=== PATIENT | female | born 1940 | race Caucasian/White ===

== ENCOUNTER 2017-11-06 10:41 | Emergency (ER) | payer MEDICARE, OTHER ==
--- NOTE | 2017-11-06 11:13 | ERPHSYRPT ---
- History of Present Illness Time Seen by Provider: 11/06/17 10:55 Source: patient Exam Limitations: clinical condition Patient Subjective Stated Complaint: pt reports pain and blisters to right thigh and groin-states that pain radiaties up into her hip at times-reports worsenign of s/s throughout the week Triage Nursing Assessment: pt [id number] appearing to be healing noted in a downward line to right thigh-resp easy and nonlabored Physician History: PATIENT WITH A HISTORY OF CHRONIC LOW BACK PAIN, SCIATICA COMPLAINS OF 2 BLISTERS OVER THE RIGHT MID THIGH OUTER ASPECT FOR THE PAST WEEK, HAS ASSOCIATED RIGHT HIP PAIN. DENIES FALL, INJURY OR TRAUMA, OR PAIN UPON WEIGHT BEARING. Method of Injury: other (DENIES INJURY OR TRAUMA.) Occurred: last week Quality: stabbing Severity of Pain-Max: moderate Severity of Pain-Current: moderate Lower Extremities Pain: hip: right, thigh: right Modifying Factors: Improves With: nothing Associated Symptoms: other (RIGHT HIP PAIN) Allergies/Adverse Reactions: No Known Drug Allergies Allergy (Verified 11/06/17 10:55) Home Medications: Bupropion HCl [Wellbutrin] 150 mg PO DAILY 04/18/12 [History] Levothyroxine Sodium [Synthroid] 112 mcg PO DAILY 04/18/12 [History] Zolpidem Tartrate 10 mg [Ambien 10 MG] 10 mg PO HS 04/18/12 [History] Hydrocodone Bit/Acetaminophen [Vicodin 5-500 Tablet] 1 each PO Q4H PRN PRN 04/22 [History] Hx Tetanus, Diphtheria Vaccination/Date Given: Yes Hx Influenza Vaccination/Date Given: Yes Hx Pneumococcal Vaccination/Date Given: No Immunizations Up to Date: Yes - Past Medical History Pertinent Past Medical History: Yes Neurological History: No Pertinent History ENT History: No Pertinent History Cardiac History: Hypertension Respiratory History: Bronchitis, Other Endocrine Medical History: No Pertinent History Musculoskeletal History: No Pertinent History GI Medical History: No Pertinent History, GERD History: No Pertinent History Psycho-Social History: Anxiety Female Reproductive Disorders: No Pertinent History Other Medical History: nodules on lungs - Past Surgical History Past Surgical History: Yes Neuro Surgical History: No Pertinent History Respiratory: No Pertinent History Gastrointestinal: Cholecystectomy Genitourinary: No Pertinent History Musculoskeletal: No Pertinent History Female Surgical History: No Pertinent History Other Surgical History: breast biopsy. arm. WHIPPLES PROCEDURE. APPENDETOMY - Social History Smoking Status: Never smoker Exposure to second hand smoke: No Drug Use: none Patient Lives Alone: No - Female History Hx Now: No - Nursing Vital Signs Nursing Vital Signs: Initial Vital Signs Temperature 97.4 F 11/06/17 10:47 Pulse Rate 91 H 11/06/17 10:47 Respiratory Rate 18 11/06/17 10:47 Blood Pressure 167/99 11/06/17 10:47 O2 Sat by Pulse Oximetry 96 11/06/17 10:47 Pain Scale Pain Intensity 0 - Physical Exam General Appearance: alert Eyes, Ears, Nose, Throat Exam: moist mucous membranes Neck Exam: non-tender, supple Cardiovascular/Respiratory Exam: chest non-tender, normal breath sounds, regular rate/rhythm, no respiratory distress Gastrointestinal/Abdominal Exam: non-tender, guarding Back Exam: normal inspection, decreased range of motion, muscle spasm, point tenderness (THERE IS PARASPINAL TENDERNESS L-2 TO L-5), No vertebral tenderness Hips Exam: right: non-tender, normal inspection, pain (THERE IS FULL RANGE OF MOTION WITH FLEXION, EXTENSION AND INTERNAL/EXTERNAL ROTATION) Legs Exam: right leg: no evidence of injury, soft tissue tenderness (MID RIGHT THIGH TO GROIN, THERE ARE 1MM X 3 HEALING VESICLES OVER MID THIGH LATERAL ASPECT.), other (THERE IS NO CALF OR LEUNG PAIN OR SWELLING) DTR - Lower Extremities Exam: knee (R): 2+, knee (L): 2+, ankle (R): 2+ Neuro/Tendon Exam: normal sensation, normal motor functions Mental Status Exam: alert, oriented x 3, cooperative Skin Exam: normal color, warm, dry SpO2: 96 Oxygen Delivery: Room Air - Radiology Exams Right Hip X-ray Interpretation: Interpreted by me (NO EVIDENCE OF FRACTURE OR DISLOCATION) - Radiology Ultrasound Exam Right Venous Lower Extremity Ultrasound: discussed w/radiologist (NO EVIDENCE OF DVT) Ordered Tests: Active Orders 24 hr Category Date Time Status HIP UNI (2V) INCL PEL IF DONE Stat Exams 11/06/17 12:05 Taken VENOUS UNILAT/LIMITED EXTREMIT [US] Stat Exams 11/06/17 Ordered - Departure Time of Disposition: 13:00 Departure Disposition: Home Clinical Impression: SPINAL STENOSIS WITH SCIATICA Condition: Stable Critical Care Time: No Referrals: GAETANO,MARY T. [Primary Care Provider] - Additional Instructions: CONTINUE ALL CURRENT MEDICATIONS. CONSULT YOUR PRIMARY CARE PROVIDER FOR FOLLOWUP AND PLHYSICAL THERAPY. TORADOL 10MG EVERY 4 HOURS FOR PAIN NEEDED. Prescriptions: Ketorolac Tromethamine [Toradol] 10 mg PO Q6H PRN PRN #20 tablet PRN Reason: Pain
[2017-11-06 13:11] VITALS: BP 149/94; PULSE 89; O2SAT 98
--- NOTE | 2017-11-06 20:14 | XRAY ---
Indication: Right hip/sciatic pain. No known injury. Impression: No AP pelvis and 2 views of the right hip demonstrate multiple bilateral gluteal calcified injection granulomas and lumbosacral junction degenerative facet arthropathy. No other bony, articular, or soft tissue abnormalities.
--- NOTE | 2017-11-06 20:16 | XRAY ---
Indication: Right thigh pain 3 days. Two-dimensional sonogram and color Doppler imaging of the major venous vessels of the right leg was performed. Comparison: None No thrombus seen in the examined deep venous vessels of the right leg including greater saphenous vein. Veins demonstrate normal compressibility. Venous waveforms are normal with and without augmentation. Impression: Right leg negative for DVT. Comment: Preliminary report was given.
== END 2017-11-06 13:10 | disposition home or self-care (01) ==
LOC: ED 10:41
DX: M54.41 Lumbago with sciatica, right side (principal); M48.061 Spinal stenosis, lumbar region without neurogenic claudication; M25.551 Pain in right hip; M79.651 Pain in right thigh
CPT/HCPCS: 73502; 93971; 99284

== ENCOUNTER 2018-01-02 17:36 | Observation (INO) | payer MEDICARE, OTHER ==
[2018-01-02] MEDS ORDERED: BABY ASPIRIN 81 MG CHEW PO ONE (18:23)
--- NOTE | 2018-01-02 18:32 | ERPHSYRPT ---
<PREET GENAO - Last Filed: 01/02/18 19:12> - History of Present Illness Time Seen by Provider: 01/02/18 18:27 Exam Limitations: no limitations Patient Subjective Stated Complaint: PT HERE FOR PAIN TO LEFT SIDE OF CHEST TODAY WITH SOB. NO COUGH NO FEVER, STATES PAIN AT REST, SHE WENT DR REN TODAY AND HAD PLACES ON FACE REMOVED Triage Nursing Assessment: PT ALERT, HAS SORES ON FACE FROM PROCEDURE TODAY, RESP EASY, SKIN W/D/P. NO EDEMAN NOTED Physician History: Of intermittent sharp short chest pains that began at 4:00. The pain will last about 10 seconds to less than 1 minute. When the chest pain occurs, she has difficulty in catching her breath. She denies nausea or sweating. She was having intermittent chest pains until she arrived at the ER. Now she has been chest pain-free. Her past medical history is significant for high cholesterol, CHF, GERD, hypothyroidism, and depression. Timing/Duration: hour(s) (2) Activities at Onset: none Quality: sharpness Location: central (left) Chest Pain Radiation: no radiation Severity of Pain-Max: moderate Severity of Pain-Current: none Modifying Factors: Improves With: nothing Associated Symptoms: shortness of breath, No nausea, No vomiting Prior Chest Pain/Cardiac Workup: no prior chest pain Nitro Today/Relief: no nitro taken today Aspirin Treatment Today: no aspirin today Allergies/Adverse Reactions: No Known Drug Allergies Allergy (Verified 01/02/18 17:48) Home Medications: Levothyroxine Sodium [Synthroid] 112 mcg PO DAILY 04/18/12 [History] Zolpidem Tartrate 10 mg [Ambien 10 MG] 10 mg PO HS 04/18/12 [History] Hydrocodone Bit/Acetaminophen [Vicodin 5-500 Tablet] 1 each PO Q4H PRN PRN 04/22 [History] Duloxetine HCl 30 mg [Cymbalta 30 MG Capsule] 30 mg DAILY 01/02/18 [ History] Omeprazole 20 MG [Prilosec 20 mg] 20 mg DAILY 01/02/18 [History] Pravastatin Sodium 10 mg DAILY 01/02/18 [History] Hx Tetanus, Diphtheria Vaccination/Date Given: Yes Hx Influenza Vaccination/Date Given: Yes Hx Pneumococcal Vaccination/Date Given: Yes Immunizations Up to Date: Yes - Review of Systems Constitutional: No Fever, No Chills Eyes: No Symptoms Ears, Nose, & Throat: No Symptoms Respiratory: Dyspnea Cardiac: Chest Pain Abdominal/Gastrointestinal: No Abdominal Pain, No Nausea, No Vomiting, No Diarrhea Genitourinary Symptoms: No Dysuria Musculoskeletal: No Back Pain, No Neck Pain Skin: No Rash Neurological: No Dizziness, No Focal Weakness, No Sensory Changes Psychological: No Symptoms Endocrine: No Symptoms Hematologic/Lymphatic: No Symptoms Immunological/Allergic: No Symptoms All Other Systems: Reviewed and Negative - Past Medical History Pertinent Past Medical History: Yes Neurological History: No Pertinent History ENT History: No Pertinent History Cardiac History: Hypertension Respiratory History: Bronchitis, CHF, Other Endocrine Medical History: No Pertinent History Musculoskeletal History: No Pertinent History GI Medical History: No Pertinent History, GERD History: No Pertinent History Psycho-Social History: Anxiety Female Reproductive Disorders: No Pertinent History Other Medical History: nodules on lungs - Past Surgical History Past Surgical History: Yes Neuro Surgical History: No Pertinent History Respiratory: No Pertinent History Gastrointestinal: Cholecystectomy Genitourinary: No Pertinent History Musculoskeletal: No Pertinent History Female Surgical History: No Pertinent History Other Surgical History: breast biopsy. arm. WHIPPLES PROCEDURE. APPENDETOMY - Social History Smoking Status: Never smoker Exposure to second hand smoke: Yes Drug Use: none Patient Lives Alone: No - Female History Hx Last Menstrual Period: POST Hx Now: No - Nursing Vital Signs Nursing Vital Signs: Initial Vital Signs Temperature 97.5 F 01/02/18 17:39 Pulse Rate 96 H 01/02/18 17:39 Respiratory Rate 18 01/02/18 17:39 Blood Pressure 173/102 01/02/18 17:39 O2 Sat by Pulse Oximetry 97 01/02/18 17:39 Pain Scale Pain Intensity 4 - Physical Exam General Appearance: no apparent distress, alert Eye Exam: PERRL/EOMI, eyes nml inspection Ears, Nose, Throat Exam: normal ENT inspection, moist mucous membranes Neck Exam: normal inspection, non-tender, supple, full range of motion Respiratory Exam: normal breath sounds, lungs clear, No respiratory distress Cardiovascular Exam: regular rate/rhythm, normal heart sounds Gastrointestinal/Abdomen Exam: soft, No tenderness, No mass Pelvic Exam: not done Rectal Exam: not done Back Exam: normal inspection, No CVA tenderness, No vertebral tenderness Extremity Exam: normal inspection, normal range of motion Neurologic Exam: alert, oriented x 3, cooperative, normal mood/affect, sensation nml, No motor deficits Skin Exam: normal color, warm, dry SpO2 Interpretation: normal SpO2: 97 Oxygen Delivery: Room Air - Course EKG Interpreted by Me: RATE, Sinus Rhythm, Left Flatgap Deviation, NORMAL INTERVALS , Left Bundle Branch Block, NORMAL ST-T - Radiology Exams Chest X-ray Interpretation: Reviewed by me, Negative (no change compared to CXR .) Ordered Tests: Active Orders 24 hr Category Date Time Status Parts Delivery Driver STAT Care 01/02/18 18:24 Active EKG-ER Only STAT Care 01/02/18 18:23 Active IV Insertion STAT Care 01/02/18 18:23 Active Pulse Oximetry (ED) STAT Care 01/02/18 18:23 Active CHEST 2 VIEWS (PA AND LAT) Stat Exams 01/02/18 18:23 Taken CBC W DIFF Stat Lab 01/02/18 18:30 Completed CMP Stat Lab 01/02/18 18:30 Completed D-DIMER QUANTITATION Stat Lab 01/02/18 18:30 Completed NT PRO BNP Stat Lab 01/02/18 18:30 Completed TROPONIN Q3H Lab 01/02/18 18:30 Completed TROPONIN Q3H Lab 01/02/18 21:30 Ordered TROPONIN Q3H Lab 01/03/18 00:30 Ordered TROPONIN Q3H Lab 01/03/18 03:30 Ordered TROPONIN Q3H Lab 01/03/18 06:30 Ordered Medication Summary Discontinued Medications Generic Name Dose Route Start Last Admin Trade Name Freq PRN Reason Stop Dose Admin Aspirin 324 mg 01/02/18 18:23 01/02/18 18:37 Baby Aspirin 81 Mg Chew PO 01/02/18 18:24 324 mg STAT ONE Administration Aspirin Confirm 01/02/18 18:33 Baby Aspirin 81 Mg Chew Administered 01/02/18 18:34 Dose 324 mg .ROUTE .[facility] ONE Lab/Rad Data: Laboratory Result Diagrams 01/02/18 18:30 01/02/18 18:30 Laboratory Results 01/02/18 01/02/18 01/02/18 Range/Units 18:30 18:30 18:30 WBC (4.0-10.5) K/mm3 RBC (4.1-5.4) M/mm3 Hgb (12.0-16.0) gm/dl Hct (35-47) % MCV (78-100) fl MCH (26-32) pg MCHC (32-36) g/dl RDW (11.5-14.0) % Plt Count (150-450) K/mm3 MPV (6-9.5) fl Gran % (36.0-66.0) % Eos # (Auto) (0-0.5) Absolute Lymphs (auto) (1.0-4.6) Absolute Monos (auto) (0.0-1.3) Lymphocytes % (24.0-44.0) % Monocytes % (0.0-12.0) % Eosinophils % (0.00-5.0) % Basophils % (0.0-0.4) % Absolute Granulocytes (1.4-6.9) Basophils # (0-0.4) D-Dimer 369.42 (215-500) ng/mL Sodium 141 (137-145) mmol/L Potassium 4.4 (3.5-5.1) mmol/L Chloride 104 (98-107) mmol/L Carbon Dioxide 25 (22-30) mmol/L Anion Gap 16.6 H (5-15) MEQ/L BUN 26 H (7-17) mg/dL Creatinine 0.62 (0.52-1.04) mg/dL Estimated GFR > 60.0 ML/MIN Glucose 99 (74-106) mg/dL Calcium 9.9 (8.4-10.2) mg/dL Total Bilirubin 0.80 (0.2-1.3) mg/dL AST 73 H (14-36) U/L ALT 75 H (0-35) U/L Alkaline Phosphatase 110 (38-126) U/L Troponin I < 0.012 (0.000-0.034) ng/mL NT-Pro-B Natriuret Pep 448 (0-1800) pg/mL Serum Total Protein 8.0 (6.3-8.2) g/dL Albumin 4.6 (3.5-5.0) g/dL 01/02/18 Range/Units 18:30 WBC 6.7 (4.0-10.5) K/mm3 RBC 4.48 (4.1-5.4) M/mm3 Hgb 13.5 (12.0-16.0) gm/dl Hct 41.1 (35-47) % MCV 91.7 (78-100) fl MCH 30.1 (26-32) pg MCHC 32.8 (32-36) g/dl RDW 13.8 (11.5-14.0) % Plt Count 184 (150-450) K/mm3 MPV 10.6 H (6-9.5) fl Gran % 59.4 (36.0-66.0) % Eos # (Auto) 0.20 (0-0.5) Absolute Lymphs (auto) 1.91 (1.0-4.6) Absolute Monos (auto) 0.58 (0.0-1.3) Lymphocytes % 28.6 (24.0-44.0) % Monocytes % 8.7 (0.0-12.0) % Eosinophils % 3.0 (0.00-5.0) % Basophils % 0.3 (0.0-0.4) % Absolute Granulocytes 3.97 (1.4-6.9) Basophils # 0.02 (0-0.4) D-Dimer (215-500) ng/mL Sodium (137-145) mmol/L Potassium (3.5-5.1) mmol/L Chloride (98-107) mmol/L Carbon Dioxide (22-30) mmol/L Anion Gap (5-15) MEQ/L BUN (7-17) mg/dL Creatinine (0.52-1.04) mg/dL Estimated GFR ML/MIN Glucose (74-106) mg/dL Calcium (8.4-10.2) mg/dL Total Bilirubin (0.2-1.3) mg/dL AST (14-36) U/L ALT (0-35) U/L Alkaline Phosphatase (38-126) U/L Troponin I (0.000-0.034) ng/mL NT-Pro-B Natriuret Pep (0-1800) pg/mL Serum Total Protein (6.3-8.2) g/dL Albumin (3.5-5.0) g/dL - Progress Progress Note: 01/02/18 19:13 Discussed pt care and transferred pt to Dr Walter at 19:00. - Departure Clinical Impression: Chest pain Qualifiers: Chest pain type: unspecified Qualified Code(s): R07.9 - Chest pain, unspecified Condition: Good Referrals: MARY SALTER [Primary Care Provider] - <MINE WALTER - Last Filed: 01/02/18 20:34> - Progress Progress: improved Air Movement: good Progress Note: 01/02/18 20:31 I re-examined patient, she states, she feels better, denies severe chest pain, no SOB or distress, comfortable. I called Dr Neves, covering Dr Salter, discussed our results and patient's current condition, he agreed to admit her for observation. I informed patient and her dayghter, they agreed. Discussed with .: Edinson Will see patient in: hospital (observation) Counseled pt/family regarding: lab results, diagnosis, rad results - Departure Time of Disposition: 20:33 Departure Disposition: Observation Critical Care Time: No
[2018-01-02] MEDS ORDERED: BABY ASPIRIN 81 MG CHEW ONE (18:33)
[2018-01-02 18:38] LABS: BASOPHIL % 0.3 % (0.0-0.4); Basophil (Absolute #) 0.02 (0-0.4); Granulocyte Absolute (ANC) 3.97 (1.4-6.9); Granulocytes % 59.4 % (36.0-66.0); Hematocrit 41.1 % (35-47); Hemoglobin 13.5 gm/dl (12.0-16.0); Lymphocyte (Absolute #) 1.91 (1.0-4.6); Lymphocytes % 28.6 % (24.0-44.0); Mean Cell Volume 91.7 fl (78-100); Mean Corpuscular Hemoglobin 30.1 pg (26-32); Mean Corpuscular Hgb Concent. 32.8 g/dl (32-36); Mean Platelet Volume 10.6 fl (6-9.5); Monocyte (Absolute #) 0.58 (0.0-1.3); Monocytes % 8.7 % (0.0-12.0); Platelet Count 184 K/mm3 (150-450); Red Blood Count 4.48 M/mm3 (4.1-5.4); Red Cell Distribution Width 13.8 % (11.5-14.0); White Blood Count 6.7 K/mm3 (4.0-10.5)
[2018-01-02 19:01] LABS: ALBUMIN 4.6 g/dL (3.5-5.0); ALKALINE PHOSPHATASE 110 U/L (38-126); ANION GAP 16.6 MEQ/L (5-15); BLOOD UREA NITROGEN 26 mg/dL (7-17); CHLORIDE 104 mmol/L (98-107); Calcium 9.9 mg/dL (8.4-10.2); Carbon Dioxide 25 mmol/L (22-30); Creatinine 1 0.62 mg/dL (0.52-1.04); Glucose 99 mg/dL (74-106); Potassium 4.4 mmol/L (3.5-5.1); SGOT/AST 73 U/L (14-36); SGPT/ALT 75 U/L (0-35); SODIUM 141 mmol/L (137-145)
[2018-01-02 19:09] LABS: NT PRO BNP 448 pg/mL (0-1800)
[2018-01-02] MEDS ORDERED: Zofran 4 MG/2 ML VIAL IV PRN (20:38)
[2018-01-02] MEDS ORDERED: Senokot-S Tablet PO PRN (20:38)
[2018-01-02] MEDS ORDERED: TYLENOL 325 MG PO PRN (20:38)
[2018-01-02] MEDS ORDERED: MILK OF MAGNESIA 30 ML PO PRN (20:38)
[2018-01-02] MEDS ORDERED: MAALOX ES 30 ML UNIT DOSE PO PRN (20:38)
[2018-01-03] MEDS ORDERED: Cymbalta 30 MG Capsule PO ONE (00:06)
[2018-01-03] MEDS ORDERED: Protonix 40MG Tablet PO ONE (00:09)
[2018-01-03] MEDS ORDERED: Ambien 5 MG Tablet PO ONE (00:10)
[2018-01-03 05:11] LABS: Cholesterol 141 mg/dL (50-200); HDL CHOLESTEROL 27 mg/dL (40-60); Risk Ratio 5.2; TRIGLYCERIDE 146 mg/dL (30-150)
[2018-01-03 05:22] LABS: LDL, DIRECT 78 mg/dL (30-100)
[2018-01-03 05:28] LABS: TROPONIN < 0.012 ng/mL (0.000-0.034)
[2018-01-03 07:25] VITALS: BP 143/78; PULSE 98; O2SAT 97
--- NOTE | 2018-01-03 08:22 | PCM.DCORD ---
- Discharge Discharge Date: 01/03/18 Disposition: Home, Self-Care Condition: Good Prescriptions: Continue Levothyroxine Sodium [Synthroid] 112 mcg PO DAILY Zolpidem Tartrate 10 mg [Ambien 10 MG] 5 mg PO HS Omeprazole 20 MG [Prilosec 20 mg] 20 mg HS Duloxetine HCl 30 mg [Cymbalta 30 MG Capsule] 60 mg HS Pravastatin Sodium 10 mg DAILY Sacubitril/Valsartan [Entresto 49 mg-51 mg Tablet] 1 tab PO HS Additional Instructions: resume previous home medications no changes list above may not be accurate Follow up with: MARY SALTER [Primary Care Provider] - 1 Week
--- NOTE | 2018-01-03 08:22 | PCM.HP ---
History of Present Illness - Chief Complaint Chief Complaint: Chest Pain Date: 01/03/18 History of Present Illness: is a 77 year old female. who yesterday afternoon began experiencing quick sharp pains in the upper left side of the chest that would come on unprovoked for 10 secs or less and were repetative she had no shortness of breath, nausea or diaphoresis with this. She has no new exercise intolerance but does have chronic cough and fibromyalgia. She was brought to the ED by her daughter and placed in observation overnight. She has not had recurrence of the pains. - Review of Systems Constitutional: No Fever, No Chills Eyes: No Symptoms Ears, Nose, & Throat: No Symptoms Respiratory: Cough, No Short Of Breath Cardiac: Chest Pain, No Edema, No Syncope Abdominal/Gastrointestinal: No Abdominal Pain, No Nausea, No Vomiting, No Diarrhea Genitourinary Symptoms: No Dysuria Musculoskeletal: No Back Pain, No Neck Pain Skin: No Rash Neurological: No Dizziness, No Focal Weakness, No Sensory Changes Psychological: No Symptoms Endocrine: No Symptoms Hematologic/Lymphatic: No Symptoms Immunological/Allergic: No Symptoms Medications & Allergies Home Medications: Home Medication List Levothyroxine Sodium [Synthroid] 112 mcg PO DAILY 04/18/12 [History Confirmed ] Zolpidem Tartrate 10 mg [Ambien 10 MG] 5 mg PO HS 04/18/12 [History Confirmed 01/02/18] Duloxetine HCl 30 mg [Cymbalta 30 MG Capsule] 60 mg HS 01/02/18 [History Confirmed 01/02/18] Omeprazole 20 MG [Prilosec 20 mg] 20 mg HS 01/02/18 [History Confirmed 01/02/18] Pravastatin Sodium 10 mg DAILY 01/02/18 [History Confirmed 01/02/18] Sacubitril/Valsartan [Entresto 49 mg-51 mg Tablet] 1 tab PO HS 01/02/18 [ History Confirmed 01/02/18] Allergies/Adverse Reactions: Allergies Allergy/AdvReac Type Severity Reaction Status Date / Time No Known Drug Allergies Allergy Verified 01/02/18 17:48 - Past Medical History Past Medical History: Yes Neurological History: No Pertinent History ENT History: Cataracts Cardiac History: Hypertension Respiratory History: Bronchitis, CHF, Other Endocrine Medical History: No Pertinent History Musculoskelatal History: No Pertinent History GI Medical History: GERD History: No Pertinent History Pyscho-Social History: Anxiety Reproductive Disorders: No Pertinent History Comment: nodules on lungs - Female History Hx Last Menstrual Period: POST Are you now?: No - Past Surgical History Past Surgical History: Yes Neuro Surgical History: No Pertinent History Cardiac History: No Pertinent History Respiratory Surgery: No Pertinent History GI Surgical History: Appendectomy, Cholecystectomy Genitourinary Surgical Hx: No Pertinent History Musculskeletal Surgical Hx: Other Female Surgical History: No Pertinent History Other Surgical History: breast biopsy. radial tunnel surgery on right arm - Social History Smoking Status: Never smoker Exposure to second hand smoke: Yes Alcohol: None Drug Use: none - Physical Exam Vital Signs: Vital Signs - 24 hr Temp Pulse Pulse Resp BP Pulse Ox 01/03/18 07:24 97.5 F 98 H 18 143/78 97 01/03/18 06:00 96 01/03/18 05:01 98.1 F 93 H 14 138/66 94 L 01/03/18 02:24 97.9 F 86 18 129/61 96 01/03/18 02:00 96 01/02/18 23:07 97.9 F 92 H 18 178/79 96 01/02/18 22:44 98 01/02/18 22:24 92 H 18 178/79 96 01/02/18 21:50 87 14 163/80 97 01/02/18 21:40 87 14 163/80 96 01/02/18 20:50 96 H 20 165/88 96 01/02/18 20:02 88 18 165/84 99 01/02/18 19:14 97 01/02/18 19:00 90 20 141/86 96 01/02/18 18:40 97.6 F 100 H 16 151/97 98 01/02/18 17:39 97.5 F 100 H 96 H 18 173/102 97 General Appearance: no apparent distress, alert Neurologic Exam: alert, oriented x 3, cooperative, normal mood/affect, nml cerebellar function, nml station & gait, sensation nml, No motor deficits Eye Exam: PERRL/EOMI, eyes nml inspection Ears, Nose, Throat Exam: normal ENT inspection, TMs normal, pharynx normal, moist mucous membranes Neck Exam: normal inspection, non-tender, supple, full range of motion Respiratory Exam: normal breath sounds, lungs clear, No respiratory distress Cardiovascular Exam: regular rate/rhythm, normal heart sounds, normal peripheral pulses Gastrointestinal/Abdomen Exam: soft, normal bowel sounds, No tenderness, No mass Back Exam: normal inspection, normal range of motion, No CVA tenderness, No vertebral tenderness Extremity Exam: normal inspection, normal range of motion, pelvis stable Skin Exam: normal color, warm, dry, No rash Lymphatic Exam: No adenopathy Results - Labs Lab/Micro Results: Lab Results-Last 24 Hours 01/03/18 01/03/18 Range/Units 01:15 04:45 Troponin I < 0.012 < 0.012 (0.000-0.034) ng/mL Triglycerides 146 (30-150) mg/dL Cholesterol 141 (50-200) mg/dL LDL Cholesterol 78 (30-100) mg/dL HDL Cholesterol 27 L (40-60) mg/dL Heart Disease Risk Ratio 5.2 - Other Procedures and Tests Respiratory Therapy 01/04/18 05:00 EKG ROUTINE 01/05/18 05:00 EKG ROUTINE 01/06/18 05:00 EKG ROUTINE Assessment/Plan (1) Chest pain Status: Acute Qualifiers: Chest pain type: unspecified Qualified Code(s): R07.9 - Chest pain, unspecified Assessment & Plan: she had negative CT for PE negative enzymes and BNP within normal limits her chest pain is atypical and appears consistent with musculoskeletal etiology she will return home on her normal medications and f/u immediately if new or worsening symptoms She will keep the f/u with her mosaic tiler this month. last heart cath was 10/12/[address] Khalida jarvis she will keep appointment this month for f/u with him Code(s): R07.9 - CHEST PAIN, UNSPECIFIED (2) Hypertension Status: Chronic Code(s): I10 - ESSENTIAL (PRIMARY) HYPERTENSION (3) LBBB (left bundle branch block) Status: Chronic Code(s): I44.7 - LEFT BUNDLE-BRANCH BLOCK, UNSPECIFIED (4) Coronary arteriosclerosis Status: Chronic
--- NOTE | 2018-01-03 08:37 | XRAY ---
Indication: Chest pain. Comparison: April 22, 2016. PA/lateral chest remains clear again with scattered calcified granulomas and right hemidiaphragm elevation. Heart and mediastinal structures within normal limits. Bony thorax intact with mild degenerative changes. Impression: Stable nonacute chest with chronic features.
[2018-01-03] MEDS ORDERED: Ecotrin 325 MG PO SCH (10:00)
[2018-01-03] MEDS ORDERED: Zocor 10MG PO SCH (10:00)
[2018-01-03] MEDS ORDERED: SYNTHROID 112 MCG PO SCH (10:00)
[2018-01-03] MEDS ORDERED: Cymbalta 30 MG Capsule PO SCH (22:00)
[2018-01-03] MEDS ORDERED: Ambien 5 MG Tablet PO SCH (22:00)
[2018-01-03] MEDS ORDERED: Protonix 40MG Tablet PO SCH (22:00)
[2018-01-03] MEDS ORDERED: ENTRESTO 49 MG-51 MG TABLET PO SCH (22:00)
== END 2018-01-03 09:10 | disposition home or self-care (01) ==
LOC: ED 17:36 → MED SURG 22:23
PROVIDERS: ADMIT Family Medicine; ATTEND Family Medicine
DX: R07.9 Chest pain, unspecified (principal); R05 Cough; Z79.899 Other long term (current) drug therapy; I10 Essential (primary) hypertension; I44.7 Left bundle-branch block, unspecified; I25.10 Atherosclerotic heart disease of native coronary artery without angina pectoris
CPT/HCPCS: 36000; 36415; 71046; 80053; 80061; 83721; 83880; 84484; 85025; 85379; 93005; 93041; 93268; 94760; 99285; A9270-GY; G0378

== ENCOUNTER 2021-01-10 13:38 | Emergency (ER) | payer MEDICARE, OTHER ==
--- NOTE | 2021-01-10 13:42 | ERPHSYRPT ---
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 She fell suffering injury to her head, left hip, left knee and middle finger of her left hand. Patient did not lose consciousness. She denies chest pain. She denies shortness of breath. She denies abdominal pain. Occurred: just prior to arrival Reason for Fall: lost balance Injuries/Pain Location: head, upper extremity (Left hand index finger), lower extremity (Left hip and left knee) Loss of Consciousness: no loss of consciousness Quality: aching Severity of Pain-Max: moderate Severity of Pain-Current: moderate Modifying Factors: Improves With: movement Associated Symptoms (Fall): extremity injury (Left hand index finger), No abdominal pain, No back pain, No chest pain Allergies/Adverse Reactions: No Known Drug Allergies Allergy (Verified 01/10/21 13:59) Home Medications: Levothyroxine Sodium [Synthroid] 112 mcg PO DAILY 04/18/12 [History] Zolpidem Tartrate 10 mg [Ambien 10 MG] 5 mg PO HS 04/18/12 [History] Duloxetine HCl 30 mg [Cymbalta 30 MG Capsule] 60 mg HS 01/02/18 [History] Omeprazole 20 MG [Prilosec 20 mg] 20 mg HS 01/02/18 [History] Pravastatin Sodium 10 mg DAILY 01/02/18 [History] Sacubitril/Valsartan [Entresto 49 mg-51 mg Tablet] 1 tab PO HS 01/02/18 [History] Carvedilol [Coreg] 25 mg PO DAILY 01/10/21 [History] Isosorbide Mononitrate 60 mg [Imdur 60MG] 60 mg PO DAILY 01/10/21 [History] Montelukast Sodium 10 mg [Singulair 10 MG] 10 mg PO DAILY 01/10/21 [History] Oxybutynin Chloride Xl 5 mg [Ditropan XL 5 MG] 5 mg PO BID 01/10/21 [History] Hx Tetanus, Diphtheria Vaccination/Date Given: Yes Hx Influenza Vaccination/Date Given: Yes Hx Pneumococcal Vaccination/Date Given: Yes Travel Risk - International Travel Have you traveled outside of the country in past 3 weeks: No - Coronavirus Screening Are you exhibiting any of the following symptoms?: No Close contact with a COVID-19 positive Pt in past 14-21 Days: No - Review of Systems Constitutional: No Symptoms Eyes: No Symptoms Ears, Nose, & Throat: No Symptoms Respiratory: No Symptoms Cardiac: No Symptoms Abdominal/Gastrointestinal: No Symptoms Genitourinary Symptoms: No Symptoms Musculoskeletal: Fall, Injury, Joint Pain (Left hip and left knee) Skin: Other (Left index finger distal palmar degloving) Neurological: No Symptoms Psychological: No Symptoms Endocrine: No Symptoms Hematologic/Lymphatic: No Symptoms Immunological/Allergic: No Symptoms All Other Systems: Reviewed and Negative - Past Medical History Pertinent Past Medical History: Yes Neurological History: No Pertinent History ENT History: Cataracts Cardiac History: Arrhythmia, High Cholesterol, Hypertension, Other Respiratory History: COPD Endocrine Medical History: Hypothyroidism Musculoskeletal History: Osteoarthritis, Other GI Medical History: GERD History: No Pertinent History Psycho-Social History: Anxiety Female Reproductive Disorders: No Pertinent History Other Medical History: HX OF ELBOW SURGERY FOR RADIAL TUNNEL RIGHT 1983. PATIENT SCHEDULED FOR PACEMAKER/DEFIBRILLATOR 08/16/19. GERD, ANXIETY, POLYMYALGIA - Past Surgical History Past Surgical History: Yes Neuro Surgical History: No Pertinent History Cardiac: No Pertinent History Respiratory: No Pertinent History Gastrointestinal: Appendectomy, Cholecystectomy Genitourinary: No Pertinent History Musculoskeletal: Other Female Surgical History: No Pertinent History Other Surgical History: breast biopsy. radial tunnel surgery on right arm - Social History Smoking Status: Never smoker Exposure to second hand smoke: Yes Drug Use: none Patient Lives Alone: No - Nursing Vital Signs Nursing Vital Signs: Initial Vital Signs Pulse Rate 64 01/10/21 13:39 O2 Sat by Pulse Oximetry 98 01/10/21 13:39 Pain Scale Pain Intensity 4 - Jos Coma Score Best Eye Response (Jos): (4) open spontaneously Best Verbal Response (Jos): (5) oriented Best Motor Response ([place]): (6) obeys commands [place] Total: 15 - Physical Exam General Appearance: no apparent distress, alert, anxiety Head Injury: no evidence of injury Eye Exam: PERRL/EOMI, eyes nml inspection ENT Exam: airway nml, evidence of ENT injury Neck Exam: supple, trachea midline, full range of motion, normal alignment Respiratory/Chest Exam: normal breath sounds, No chest tenderness, No respiratory distress, No accessory muscle use Cardiovascular Exam: normal heart sounds, regular rate/rhythm Gastrointestinal Exam: soft, normal bowel sounds, No tenderness Rectal Exam: not done Back Exam: normal inspection, normal range of motion, No CVA tenderness, No vertebral tenderness Extremity Exam: normal range of motion, pelvis stable, lacerations (Degloving 1 cm x 1 cm palmar aspect distal left 3rd finger. Neurovascularly intact. Tendon intact. 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, normal mood/affect, nml cerebellar function, nml station & gait, sensation nml Skin Exam: laceration (See above) SpO2 Interpretation: normal O2 Delivery: Room Air Procedures - Laceration/Wound Repair Left Distal Volar Finger Time of Procedure: 14:40 Wound Length (cm): 1 Wound's Depth, Shape: superficial, flap, into subcut Wound Explored: clean Irrigated: Yes Hibiclens Prep: Yes Anesthesia: 1% Lidocaine Volume Anesthetic (ccs): 5 Suture Size/Type: 4-0, prolene Number of Sutures: 5 Layer Closure?: No Sterile Dressing Applied?: Yes Progress: 01/10/21 14:54 The goal of this procedure was to use the patient's own degloved 1 cm x 1 cm in a horseshoe fashion skin as a skin graft. The area was prepped there was a digital block performed with 1% lidocaine plain. 5 mL were used in total. 5 simple interrupted sutures of 4-0 Prolene were used to tack the skin graft to the finger tip. The area was then cleaned, bacitracin ointment was applied, Vaseline gauze was applied as well as nonstick gauze. Pressure dressing was then applied. We are awaiting x-ray of the hand. - Course Nursing assessment & vital signs reviewed: Yes Ordered Tests: Active Orders 24 hr Category Date Time Status IV Insertion STAT Care 01/10/21 13:55 Active Wound Care STAT Care 01/10/21 13:56 Active CERVICAL SPINE WO CONTRAST [CT] Stat Exams 01/10/21 13:50 Taken ELBOW (MINIMUM 3 VIEWS) Routine Exams 01/10/21 16:15 Taken HAND (MINIMUM 3 VIEWS) Stat Exams 01/10/21 13:49 Taken HEAD WITHOUT CONTRAST [CT] Stat Exams 01/10/21 13:50 Taken HIPS JERMAIN(2V) INCL PEL IF DONE Stat Exams 01/10/21 13:49 Taken KNEE (1 OR 2 VIEW) Stat Exams 01/10/21 13:55 Taken Medication Summary Discontinued Medications Generic Name Dose Route Start Last Admin Trade Name Sally PRN Reason Stop Dose Admin Cefazolin Sodium/Dextrose 1 gm in 50 mls @ 100 mls/hr 01/10/21 13:56 01/10/21 16:17 Kefzol 1 Gm/50 Ml Premix IV 01/10/21 14:25 100 mls/hr STAT ONE Administration Cefazolin Sodium/Dextrose Confirm 01/10/21 15:41 Kefzol 1 Gm/50 Ml Premix Administered 01/10/21 15:42 Dose 1 gm in 50 mls @ ud IV .STK-MED ONE Lidocaine HCl Confirm 01/10/21 14:11 Xylocaine 1% Hcl 20 Ml Mdv Administered 01/10/21 14:12 Dose 1 ml .ROUTE .STK-MED ONE Morphine Sulfate 4 mg 01/10/21 13:57 01/10/21 14:11 Morphine Sulfate 4 Mg Inj IV 01/10/21 13:58 4 mg STAT ONE Administration Morphine Sulfate Confirm 01/10/21 14:09 Morphine Sulfate 4 Mg Inj Administered 01/10/21 14:10 Dose 4 mg .ROUTE .STK-MED ONE Ondansetron HCl 4 mg 01/10/21 13:57 01/10/21 14:11 Zofran 4 Mg/2 Ml Vial IV 01/10/21 13:58 4 mg STAT ONE Administration Ondansetron HCl Confirm 01/10/21 14:09 Zofran 4 Mg/2 Ml Vial Administered 01/10/21 14:10 Dose 4 mg .ROUTE .STK-MED ONE - Progress Progress: improved, pain not gone completely, re-examined Progress Note: 01/10/21 14:57 Medical decision making: With regard to the patient's degloved skin of left 3rd digit, distal aspect, palmar aspect, I contacted Dr. Frederick Swartz. He is a hand surgeon out of [facility]. With the patient's permission I took pictures of the site of injury. Dr. Swartz reviewed them and the plan was to tack the patient's own skin graft to the site. Patient was made aware that this may not take. No other surgical recommendation at this time. The patient is to follow- up in his office 01/13/2020, at 1 PM. Again, the patient is aware that this skin graft may not take in additional surgical procedure may need to be performed. 01/10/21 16:35 01/10/21 16:39 X-ray of left hand shows complete fracture of the tip of the distal phalanx third digit. Left knee x-ray shows no acute fracture or dislocation X-ray of bilateral hip shows no evidence of any acute fracture or dislocation. 01/10/21 17:04 Rate of the left elbow shows no acute fracture or dislocation 01/10/21 17:22 CAT scan of the cervical spine without contrast shows no acute fracture or subluxation. CAT scan of the head without contrast shows no acute intracranial abnormality or injury. Counseled pt/family regarding: diagnosis, need for follow-up, rad results - Departure Departure Disposition: Home Clinical Impression: Fall with injury, Degloving injury of finger Condition: Stable Critical Care Time: No Referrals: MONIKA SINGLETON NP [Primary Care Provider] - Additional Instructions: Take your medication as prescribed. Stop all your blood thinning medication including aspirin and Eliquis. Follow-up with Dr. Frederick Swartz in his office [address] The phone number is [phone]. He will see you in his office at 1 PM on Tuesday01/12/2021 Prescriptions: Hydrocodone/APAP 5/325 [[place] 5/325 mg] 1 each PO Q8H PRN PRN #7 tablet MDD 3 PRN Reason: Pain Cephalexin Mh 500 mg [Keflex 500 mg] 500 mg PO TID #21 capsule
[2021-01-10] MEDS ORDERED: KEFZOL 1 GM/50 ML PREMIX** 1 GM/50 ML IVPB IV ONE ×2 (13:56→15:41)
[2021-01-10] MEDS ORDERED: MORPHINE SULFATE 4 MG INJ IV ONE (13:57)
[2021-01-10] MEDS ORDERED: Zofran 4 MG/2 ML VIAL IV ONE (13:57)
[2021-01-10 13:59] VITALS: O2SAT 98
[2021-01-10] MEDS ORDERED: Zofran 4 MG/2 ML VIAL ONE (14:09)
[2021-01-10] MEDS ORDERED: MORPHINE SULFATE 4 MG INJ ONE (14:09)
[2021-01-10] MEDS ORDERED: XYLOCAINE 1% HCL 20 ML MDV ONE (14:11)
[2021-01-10 17:09] VITALS: BP 101/61; PULSE 62
[2021-01-10] MEDS ORDERED: NORCO 5/325 MG PO ONE (17:26)
[2021-01-10] MEDS ORDERED: NORCO 5/325 MG ONE (17:33)
--- NOTE | 2021-01-10 20:01 | XRAY ---
Indication: Injury following fall. Multiple contiguous axial images obtained through the head without contrast. Comparison: None Age-appropriate global atrophy and minimal periventricular degenerative micro-ischemia bilaterally. No acute intracranial hemorrhage, abnormal extra-axial fluid collection, or mass effect. Fourth ventricle is midline without hydrocephalus. Bony calvarium intact. Visualized paranasal sinuses and mastoid air cells are clear. Impression: Nonacute senile brain. Comment: Preliminary interpretation was made by [facility]. No critical discrepancy.
--- NOTE | 2021-01-10 20:09 | XRAY ---
Indication: Injury following fall. Multiple contiguous axial images obtained through the cervical spine. Sagittal and coronal reformatted images obtained. Comparison: None Axial images negative for acute fracture, suspicious bony lesions, or spinal canal stenosis. Mild C6-C7 degenerative endplate spurring and moderate multilevel bilateral degenerative facet hypertrophy. Sagittal and coronal reformatted images demonstrates lordotic reversal, positional versus paraspinal spasm. C6-C7 disc space loss. No acute compression fracture, subluxation, or jumped facet. Normal appearing craniocervical junction. Visualized noncontrasted soft tissues demonstrates mild heterogeneously enlarged right thyroid gland. Lung apices demonstrates a few calcified granulomas. Impression: 1. Cervical lordotic reversal, positional versus paraspinal spasm. 2. Negative acute fracture/subluxation. 2. Multilevel degenerative changes. Comment: Preliminary interpretation was made by [facility]. No critical discrepancy.
--- NOTE | 2021-01-10 20:34 | XRAY ---
Indication: Pain following fall. Comparison: None 3 view left elbow demonstrates osteopenia. No other bony, articular, or soft tissue abnormalities.
--- NOTE | 2021-01-10 20:36 | XRAY ---
Indication: Pain following fall. Comparison: None 2 view left knee demonstrates osteopenia small posterior fabella. No other bony, articular, or soft tissue abnormalities.
--- NOTE | 2021-01-10 20:38 | XRAY ---
Indication: Pain following fall. Comparison: None AP pelvis and 2 view left and right hip demonstrates osteopenia, lower lumbar degenerative spondylosis, and multiple bilateral gluteal calcified injection granulomas. No other bony, articular, or soft tissue abnormalities.
--- NOTE | 2021-01-10 20:38 | XRAY ---
Indication: Pain following fall. Comparison: None 3 view left hand demonstrates displaced 3rd phalanx tuft fracture with overlying bandage material. Incidental osteopenia and mild degenerative changes base 1st metacarpal. No other bony, articular, or soft tissue abnormalities.
== END 2021-01-10 17:40 | disposition home or self-care (01) ==
LOC: ED 13:38
DX: S61.213A Laceration without foreign body of left middle finger without damage to nail, initial encounter (principal); W01.119A Fall on same level from slipping, tripping and stumbling with subsequent striking against unspecified sharp object, initial encounter; Y93.01 Activity, walking, marching and hiking; Y92.094 Garage of other non-institutional residence as the place of occurrence of the external cause; S09.90XA Unspecified injury of head, initial encounter; Z79.01 Long term (current) use of anticoagulants; S79.912A Unspecified injury of left hip, initial encounter; S89.92XA Unspecified injury of left lower leg, initial encounter; I10 Essential (primary) hypertension; J44.9 Chronic obstructive pulmonary disease, unspecified; E03.9 Hypothyroidism, unspecified
CPT/HCPCS: 70450; 72125; 73080; 73130; 73521; 73560; 96365; 96374; 96375; 99284; J0690; J2270; J2405; A9270-GY

== ENCOUNTER 2021-07-26 13:32 | Inpatient (IN) | payer MEDICARE, OTHER ==
[2021-07-26 14:18] LABS: Absolute Neutrophil Ct (ANC) 3.86 (1.4-6.9); BASOPHIL % 0.5 % (0.0-0.4); Basophil (Absolute #) 0.03 (0-0.4); Eosinophil (Absolute #) 0.23 (0-0.5); Hematocrit 39.1 % (35-47); Hemoglobin 12.3 gm/dl (12.0-16.0); Lymphocyte (Absolute #) 1.16 (1.0-4.6); Mean Cell Volume 91.4 fl (78-100); Mean Corpuscular Hemoglobin 28.7 pg (26-32); Mean Corpuscular Hgb Concent. 31.5 g/dl (32-36); Mean Platelet Volume 10.2 fl (7.5-11.0); Monocyte (Absolute #) 0.51 (0.0-1.3); Monocytes % 8.8 % (0.0-12.0); Neutrophil % 66.7 % (36.0-66.0); Platelet Count 152 K/mm3 (150-450); Red Blood Count 4.28 M/mm3 (4.1-5.4); Red Cell Distribution Width 15.5 % (11.5-14.0); White Blood Count 5.8 K/mm3 (4.0-10.5)
[2021-07-26 14:22] LABS: INR 1.72 (0.8-3.0); PROTIME 20.3 SECONDS (9.4-12.5)
[2021-07-26 14:25] LABS: PTT 36.7 SECONDS (25.1-36.5)
[2021-07-26 14:29] LABS: ALKALINE PHOSPHATASE 106 U/L (38-126); ANION GAP 12.6 MEQ/L (5-15); BLOOD UREA NITROGEN 13 mg/dL (7-17); CHLORIDE 103 mmol/L (98-107); Carbon Dioxide 25 mmol/L (22-30); EST GLOMERULAR FILTRATION RATE > 60.0 ML/MIN; Glucose 134 mg/dL (74-106); Potassium 3.7 mmol/L (3.5-5.1); SGOT/AST 77 U/L (14-36); SGPT/ALT 52 U/L (0-35); SODIUM 137 mmol/L (137-145); Total Protein 6.9 g/dL (6.3-8.2)
[2021-07-26] MEDS ORDERED: DUONEB 0.5-3 MG/3 ml Neb IH ONE (14:59)
--- NOTE | 2021-07-26 15:03 | ERPHSYRPT ---
- History of Present Illness Time Seen by Provider: 07/26/21 13:34 Source: patient Exam Limitations: no limitations Patient Subjective Stated Complaint: weakness Triage Nursing Assessment: Patient brought back to ED via w/c and transferred to bed per self. Patient A+O X 3. Patient's skin pale, cool and dry. Patient complains of weakness, cough, SOB, and fatigue for one week. Patient's lungs clear a/p sue. Physician History: 81 years old female with history of congestive heart failure status post AICD implant presented in the ER with chief complaint of multiple flulike symptoms. Patient reports nasal/sinus congestion, wet to dry cough, chest soreness, wheezing, subjective feeling of fever chills, headache, body aches along with generalized weakness fatigue and tiredness. She has been using [id number] medication with no significant relief. Is vaccinated against COVID-19. Does have positive exposure to sick contact with her daughter who had similar symptoms. Denies any abdominal pain nausea vomiting or diarrhea. Timing/Duration: week(s) (1), gradual onset, worse Cough Quality/Degree: moderate, dry cough, productive cough Possible Cause: illness exposure Modifying Factors: Worsens With: coughing Associated Symptoms: fever, chills, chest pain/soreness, cough, headache, muscle aches, nasal congestion, shortness of breath, sinus infection Allergies/Adverse Reactions: No Known Drug Allergies Allergy (Verified 01/10/21 13:59) Home Medications: Levothyroxine Sodium [Synthroid] 112 mcg PO DAILY 04/18/12 [History] Zolpidem Tartrate 10 mg [Ambien 10 MG] 5 mg PO HS 04/18/12 [History] Duloxetine HCl 30 mg [Cymbalta 30 MG Capsule] 60 mg PO DAILY 01/02/18 [History] Omeprazole 20 MG [Prilosec 20 mg] 20 mg HS 01/02/18 [History] Pravastatin Sodium 20 mg DAILY 01/02/18 [History] Carvedilol [Coreg] 25 mg PO BID 01/10/21 [History] Isosorbide Mononitrate 60 mg [Imdur 60MG] 60 mg PO DAILY 01/10/21 [History] Montelukast Sodium 10 mg [Singulair 10 MG] 10 mg PO HS 01/10/21 [History] Oxybutynin Chloride Xl 5 mg [Ditropan XL 5 MG] 5 mg PO BID 01/10/21 [History] Apixaban [Eliquis] 5 mg PO BID 07/26/21 [History] Budesonide/Formoterol Fumarate [Budesonide-Formoterol 160-4.5] 2 puff IH BID 07/26/21 [History] Sacubitril/Valsartan [Entresto 97 mg-103 mg Tablet] 1 tab PO BID 07/26/21 [History] Hx Tetanus, Diphtheria Vaccination/Date Given: Yes Hx Influenza Vaccination/Date Given: Yes Hx Pneumococcal Vaccination/Date Given: Yes Immunizations Up to Date: Yes Travel Risk - International Travel Have you traveled outside of the country in past 3 weeks: No - Coronavirus Screening Symptoms: Cough: New Onset, Shortness of Breath, Headaches/Body Aches/Fatigue Close contact with a COVID-19 positive Pt in past 14-21 Days: No - Vaccine Status Have you recieved a Covid-19 vaccination: Yes 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 - Vaccination Dates Date of 2cond Vaccination (if applicable): 11/23 - Review of Systems Constitutional: Fever, Chills, Fatigue, Weakness Eyes: No Symptoms Ears, Nose, & Throat: Nose Congestion Respiratory: Cough, Dyspnea, Wheezing Cardiac: No Symptoms Abdominal/Gastrointestinal: No Symptoms Genitourinary Symptoms: No Symptoms Musculoskeletal: Myalgias Skin: No Symptoms Neurological: Headache Psychological: No Symptoms Endocrine: No Symptoms Hematologic/Lymphatic: No Symptoms Immunological/Allergic: No Symptoms - Past Medical History Pertinent Past Medical History: Yes Neurological History: No Pertinent History ENT History: Cataracts Cardiac History: Arrhythmia, High Cholesterol, Hypertension, Other Respiratory History: COPD Endocrine Medical History: Hypothyroidism Musculoskeletal History: Osteoarthritis, Other GI Medical History: GERD History: No Pertinent History Psycho-Social History: Anxiety Female Reproductive Disorders: No Pertinent History Other Medical History: HX OF ELBOW SURGERY FOR RADIAL TUNNEL RIGHT 1983. PATIENT SCHEDULED FOR PACEMAKER/DEFIBRILLATOR 08/16/19. GERD, ANXIETY, POLYMYALGIA - Past Surgical History Past Surgical History: Yes Neuro Surgical History: No Pertinent History Cardiac: No Pertinent History, Internal Defibrillator, Pacemaker Respiratory: No Pertinent History Gastrointestinal: Appendectomy, Cholecystectomy Genitourinary: No Pertinent History Musculoskeletal: Other Female Surgical History: No Pertinent History Other Surgical History: breast biopsy. radial tunnel surgery on right arm - Social History Smoking Status: Never smoker Exposure to second hand smoke: Yes Drug Use: none Patient Lives Alone: No - Female History Hx Now: No - Nursing Vital Signs Nursing Vital Signs: Initial Vital Signs Temperature 97.6 F 07/26/21 13:45 Pulse Rate 75 07/26/21 13:45 Respiratory Rate 19 07/26/21 13:45 Blood Pressure 102/68 07/26/21 13:45 O2 Sat by Pulse Oximetry 95 07/26/21 13:45 Pain Scale Pain Intensity 0 - Physical Exam General Appearance: no apparent distress, alert (He) Eye Exam: PERRL/EOMI, eyes nml inspection Ears, Nose, Throat Exam: TMs normal, moist mucous membranes, pharyngeal erythema Neck Exam: normal inspection, non-tender, full range of motion Respiratory Exam: wheezing, No chest tenderness, No accessory muscle use Cardiovascular Exam: regular rate/rhythm, normal heart sounds Gastrointestinal/Abdomen Exam: soft, normal bowel sounds, No tenderness, No rebound Back Exam: normal inspection, normal range of motion Extremity Exam: normal inspection, normal range of motion Neurologic Exam: alert, oriented x 3, cooperative Skin Exam: normal color SpO2 Interpretation: normal SpO2: 95 O2 Delivery: Room Air Ordered Tests: Medication Summary Generic Name Dose Route Start Last Admin Trade Name Freq PRN Reason Stop Dose Admin Acetaminophen 650 mg 07/26/21 19:54 07/29/21 10:32 Acetaminophen 325 Mg Tablet PO 08/25/21 19:53 650 mg Q4H PRN PRN Administration PAIN AND/OR FEVER Albuterol Sulfate 2.5 mg 07/27/21 23:20 07/28/21 18:43 Albuterol Sulfate 2.5 Mg/3 Ml Neb IH 08/26/21 23:19 2.5 mg Q4H PRN PRN Administration SHORTNESS OF BREATH/WHEEZING Albuterol/Ipratropium 3 ml 07/26/21 19:54 07/29/21 10:37 Ipratropium/Albuterol Sulfate 3 Ml Ampul.Neb IH 08/25/21 19:53 3 ml QIDRT YAA Administration Apixaban 5 mg 07/26/21 22:00 07/29/21 10:32 Apixaban 2.5 Mg Tablet PO 08/25/21 21:59 5 mg BID YAA Administration Carvedilol 25 mg 07/26/21 22:00 07/29/21 10:32 Carvedilol 12.5 Mg Tablet PO 08/25/21 21:59 25 mg BID YAA Administration Methylprednisolone Sodium 0 mg 07/27/21 12:00 07/29/21 11:41 Succinate 80 mg/ Sterile Water IV 08/26/21 11:59 80 mg 2 ml Q6HT YAA Administration Diphenhydramine/Hydrocorti/Nystatin 10 ml 07/27/21 18:00 07/29/21 11:41 Nystatin/Tcn/Hc/Diphenhydramin 237 Ml Bottle PO 08/26/21 17:59 Not Given Q6HT YAA Duloxetine HCl 60 mg 07/27/21 10:00 07/29/21 10:32 Duloxetine Hcl 30 Mg Cap PO 08/26/21 09:59 60 mg DAILY YAA Administration Guaifenesin/Codeine Phosphate 5 ml 07/27/21 06:57 Guaifenesin/Codeine Phosphate 5 Ml Udcup PO 08/26/21 06:56 BID PRN PRN COUGH Azithromycin 500 mg in 250 mls @ 250 mls/hr 07/27/21 22:00 07/28/21 22:15 Zithromax 500 Mg/ 250 Ml Nacl Premix IV 08/26/21 21:59 250 mls/hr Q24H22 YAA Administration Ceftriaxone Sodium/Dextrose 1 g in 50 mls @ 100 mls/hr 07/27/21 10:00 07/29/21 10:39 Rocephin 1 Gm-D5w 50 Ml Bag IV 07/31/21 09:59 100 mls/hr Q24H10 YAA Administration Insulin Human Lispro 0 unit 07/28/21 07:41 07/28/21 22:16 Insulin Lispro 1 Unit SQ 08/27/21 07:40 4 unit UD PRN Administration HYPERGLYCEMIA Isosorbide Mononitrate 60 mg 07/27/21 10:00 07/29/21 10:32 Isosorbide Mononitrate 60 Mg Tab PO 08/26/21 09:59 60 mg DAILY YAA Administration Levothyroxine Sodium 112 mcg 07/27/21 10:00 07/29/21 10:33 Levothyroxine Sodium 112 Mcg Tablet PO 08/26/21 09:59 112 mcg DAILY YAA Administration Magnesium Hydroxide 30 ml 07/28/21 15:03 07/28/21 15:41 Magnesium Hydroxide 30 Ml Udcup PO 08/27/21 15:02 30 ml QDP PRN Administration CONSTIPATION Montelukast Sodium 10 mg 07/26/21 22:00 07/28/21 22:15 Montelukast Sodium 10 Mg Tablet PO 08/25/21 21:59 10 mg HS YAA Administration Ondansetron HCl 4 mg 07/26/21 19:54 07/27/21 15:53 Ondansetron Hcl 4 Mg/2 Ml Vial IV 08/25/21 19:53 4 mg Q6H PRN PRN Administration NAUSEA/VOMITING Oxybutynin Chloride 5 mg 07/26/21 22:00 07/29/21 10:32 Oxybutynin Chloride Xl 5 Mg Tab PO 08/25/21 21:59 5 mg BID YAA Administration Pantoprazole Sodium 40 mg 07/26/21 22:00 07/28/21 22:15 Protonix (Pantoprazole) 40 Mg Tablet PO 08/25/21 21:59 40 mg HS YAA Administration Symbicort Inhaler 2 each 07/27/21 19:00 07/29/21 07:08 IH 08/26/21 18:59 2 each BIDRT YAA Administration Sacubitril/Valsartan 2 tablet 07/26/21 22:00 07/29/21 10:32 Sacubitril/Valsartan 1 Tablet Tablet PO 08/25/21 21:59 2 tablet BID YAA Administration Simvastatin 20 mg 07/27/21 10:00 07/29/21 10:33 Simvastatin 20 Mg Tablet PO 08/26/21 09:59 20 mg DAILY YAA Administration Zolpidem Tartrate 5 mg 07/26/21 22:00 07/28/21 22:15 Zolpidem Tartrate 5 Mg Tab PO 08/25/21 21:59 5 mg HS YAA Administration Discontinued Medications Generic Name Dose Route Start Last Admin Trade Name Freq PRN Reason Stop Dose Admin Albuterol Sulfate 4 puff 07/26/21 15:04 07/26/21 15:10 Albuterol Common Canister Inhaler IH 07/26/21 15:05 4 puff ONCE ONE Administration Albuterol Sulfate Confirm 07/27/21 23:24 Albuterol Solution 2.5 Mg/0.5 Ml Ud Solution Administered 07/27/21 23:25 Dose 2.5 mg IH .STK-MED ONE Albuterol/Ipratropium 3 ml 07/26/21 14:59 07/26/21 20:42 Ipratropium/Albuterol Sulfate 3 Ml Ampul.Neb IH 07/26/21 15:00 Not Given STAT ONE Guaifenesin/Codeine Phosphate 5 ml 07/26/21 21:19 07/26/21 22:00 Guaifenesin/Codeine Phosphate 5 Ml Udcup PO 08/25/21 21:59 5 ml BID PRN Administration COUGH Ceftriaxone Sodium/Dextrose 1 g in 50 mls @ 100 mls/hr 07/26/21 17:16 07/26/21 19:32 Rocephin 1 Gm-D5w 50 Ml Bag IV 07/26/21 17:45 100 mls/hr STAT STA 100 mls/hr Administration Azithromycin 500 mg in 250 mls @ 250 mls/hr 07/26/21 17:16 07/26/21 20:53 Zithromax 500 Mg/ 250 Ml Nacl Premix IV 07/26/21 18:15 250 mls/hr STAT STA Administration Ceftriaxone Sodium/Dextrose Confirm 07/26/21 19:27 Rocephin 1 Gm-D5w 50 Ml Bag Administered 07/26/21 19:28 Dose 1 g in 50 mls @ ud IV .STK-MED ONE Methylprednisolone Sodium Succinate Confirm 07/29/21 06:33 Methylprednis Sod Succ 125 Mg/2 Ml Vial Administered 07/29/21 06:34 Dose 125 mg .ROUTE .STK-MED ONE Miscellaneous Information 1 each 07/27/21 11:00 Medication Intervention 1 Each Each 08/26/21 10:59 .RT TO CHECK ON YAA Pantoprazole Sodium 40 mg 07/27/21 10:00 Pantoprazole 40 Mg Vial IV 08/26/21 09:59 Q24H10 YAA Pantoprazole Sodium 40 mg 07/26/21 22:00 Pantoprazole 20 Mg Tab PO 08/25/21 21:59 HS YAA Prednisone 60 mg 07/26/21 16:12 07/26/21 16:35 Prednisone 20 Mg Tablet PO 07/26/21 16:13 60 mg STAT ONE Administration Prednisone Confirm 07/26/21 16:32 Prednisone 20 Mg Tablet Administered 07/26/21 16:33 Dose 60 mg .ROUTE .STK-MED ONE Lab/Rad Data: Laboratory Result Diagrams 07/28/21 04:38 07/28/21 04:38 Laboratory Results 07/28/21 07/28/21 07/28/21 Range/Units 06:00 04:38 04:38 WBC 2.7 L (4.0-10.5) K/mm3 RBC 3.85 L (4.1-5.4) M/mm3 Hgb 11.1 L (12.0-16.0) gm/dl Hct 35.4 (35-47) % MCV 91.9 (78-100) fl MCH 28.8 (26-32) pg MCHC 31.4 L (32-36) g/dl RDW 15.1 H (11.5-14.0) % Plt Count 114 L (150-450) K/mm3 MPV 10.7 (7.5-11.0) fl Gran % 80.3 H (36.0-66.0) % Eos # (Auto) 0 (0-0.5) Absolute Lymphs (auto) 0.45 L (1.0-4.6) Absolute Monos (auto) 0.09 (0.0-1.3) Lymphocytes % 16.4 L (24.0-44.0) % Monocytes % 3.3 (0.0-12.0) % Eosinophils % 0.0 (0.00-5.0) % Basophils % 0.0 (0.0-0.4) % Absolute Granulocytes 2.20 (1.4-6.9) Basophils # 0 (0-0.4) PT (9.4-12.5) SECONDS INR (0.8-3.0) APTT (25.1-36.5) SECONDS Sodium 140 (137-145) mmol/L Potassium 4.0 (3.5-5.1) mmol/L Chloride 105 (98-107) mmol/L Carbon Dioxide 22 (22-30) mmol/L Anion Gap 16.9 H (5-15) MEQ/L BUN 16 (7-17) mg/dL Creatinine 0.53 (0.52-1.04) mg/dL Estimated GFR > 60.0 ML/MIN Glucose 218 H (74-106) mg/dL Hemoglobin A1c 5.32 (4.5-6.0) % Calcium 9.2 (8.4-10.2) mg/dL Total Bilirubin (0.2-1.3) mg/dL AST (14-36) U/L ALT (0-35) U/L Alkaline Phosphatase (38-126) U/L Troponin I (0.000-0.034) ng/mL Serum Total Protein (6.3-8.2) g/dL Albumin (3.5-5.0) g/dL Urine Color (YELLOW) Urine Appearance (CLEAR) Urine pH (5-6) Ur Specific Canmer (1.005-1.025) Urine Protein (Negative) Urine Ketones (NEGATIVE) Urine Blood (0-5) Arnoldo/ul Urine Nitrite (NEGATIVE) Urine Bilirubin (NEGATIVE) Urine Urobilinogen (0-1) mg/dL Ur Leukocyte Esterase (NEGATIVE) Urine WBC (Auto) (0-5) /HPF Urine RBC (Auto) (0-2) /HPF U Hyaline Cast (Auto) (0-2) /LPF U Epithel Cells (Auto) (FEW) /HPF Urine Bacteria (Auto) (NEGATIVE) /HPF Urine Mucus (Auto) (NEGATIVE) /HPF Urine Culture Reflexed (NO) Urine Glucose (NEGATIVE) mg/dL Influenza Type A Ag (NEGATIVE) Influenza Type B Ag (NEGATIVE) RSV (PCR) (Negative) SARS-CoV-2 (PCR) (NEGATIVE) Slides for Path Review YES 07/27/21 07/27/21 07/26/21 Range/Units 05:07 05:07 23:58 WBC 2.8 L (4.0-10.5) K/mm3 RBC 3.89 L (4.1-5.4) M/mm3 Hgb 11.2 L (12.0-16.0) gm/dl Hct 35.5 (35-47) % MCV 91.3 (78-100) fl MCH 28.8 (26-32) pg MCHC 31.5 L (32-36) g/dl RDW 15.2 H (11.5-14.0) % Plt Count 127 L (150-450) K/mm3 MPV 10.3 (7.5-11.0) fl Gran % 71.9 H (36.0-66.0) % Eos # (Auto) 0 (0-0.5) Absolute Lymphs (auto) 0.56 L (1.0-4.6) Absolute Monos (auto) 0.23 (0.0-1.3) Lymphocytes % 19.9 L (24.0-44.0) % Monocytes % 8.2 (0.0-12.0) % Eosinophils % 0.0 (0.00-5.0) % Basophils % 0.0 (0.0-0.4) % Absolute Granulocytes 2.03 (1.4-6.9) Basophils # 0 (0-0.4) PT (9.4-12.5) SECONDS INR (0.8-3.0) APTT (25.1-36.5) SECONDS Sodium 139 (137-145) mmol/L Potassium 3.7 (3.5-5.1) mmol/L Chloride 104 (98-107) mmol/L Carbon Dioxide 25 (22-30) mmol/L Anion Gap 13.7 (5-15) MEQ/L BUN 16 (7-17) mg/dL Creatinine 0.55 (0.52-1.04) mg/dL Estimated GFR > 60.0 ML/MIN Glucose 176 H (74-106) mg/dL Hemoglobin A1c (4.5-6.0) % Calcium 9.2 (8.4-10.2) mg/dL Total Bilirubin 0.50 (0.2-1.3) mg/dL AST 50 H (14-36) U/L ALT 45 H (0-35) U/L Alkaline Phosphatase 93 (38-126) U/L Troponin I < 0.012 (0.000-0.034) ng/mL Serum Total Protein 6.7 (6.3-8.2) g/dL Albumin 3.9 (3.5-5.0) g/dL Urine Color (YELLOW) Urine Appearance (CLEAR) Urine pH (5-6) Ur Specific Canmer (1.005-1.025) Urine Protein (Negative) Urine Ketones (NEGATIVE) Urine Blood (0-5) Arnoldo/ul Urine Nitrite (NEGATIVE) Urine Bilirubin (NEGATIVE) Urine Urobilinogen (0-1) mg/dL Ur Leukocyte Esterase (NEGATIVE) Urine WBC (Auto) (0-5) /HPF Urine RBC (Auto) (0-2) /HPF U Hyaline Cast (Auto) (0-2) /LPF U Epithel Cells (Auto) (FEW) /HPF Urine Bacteria (Auto) (NEGATIVE) /HPF Urine Mucus (Auto) (NEGATIVE) /HPF Urine Culture Reflexed (NO) Urine Glucose (NEGATIVE) mg/dL Influenza Type A Ag (NEGATIVE) Influenza Type B Ag (NEGATIVE) RSV (PCR) (Negative) SARS-CoV-2 (PCR) (NEGATIVE) Slides for Path Review YES 07/26/21 07/26/21 07/26/21 Range/Units 20:28 19:42 17:56 WBC (4.0-10.5) K/mm3 RBC (4.1-5.4) M/mm3 Hgb (12.0-16.0) gm/dl Hct (35-47) % MCV (78-100) fl MCH (26-32) pg MCHC (32-36) g/dl RDW (11.5-14.0) % Plt Count (150-450) K/mm3 MPV (7.5-11.0) fl Gran % (36.0-66.0) % Eos # (Auto) (0-0.5) Absolute Lymphs (auto) (1.0-4.6) Absolute Monos (auto) (0.0-1.3) Lymphocytes % (24.0-44.0) % Monocytes % (0.0-12.0) % Eosinophils % (0.00-5.0) % Basophils % (0.0-0.4) % Absolute Granulocytes (1.4-6.9) Basophils # (0-0.4) PT (9.4-12.5) SECONDS INR (0.8-3.0) APTT (25.1-36.5) SECONDS Sodium (137-145) mmol/L Potassium (3.5-5.1) mmol/L Chloride (98-107) mmol/L Carbon Dioxide (22-30) mmol/L Anion Gap (5-15) MEQ/L BUN (7-17) mg/dL Creatinine (0.52-1.04) mg/dL Estimated GFR ML/MIN Glucose (74-106) mg/dL Hemoglobin A1c (4.5-6.0) % Calcium (8.4-10.2) mg/dL Total Bilirubin (0.2-1.3) mg/dL AST (14-36) U/L ALT (0-35) U/L Alkaline Phosphatase (38-126) U/L Troponin I < 0.012 (0.000-0.034) ng/mL Serum Total Protein (6.3-8.2) g/dL Albumin (3.5-5.0) g/dL Urine Color JEFF (YELLOW) Urine Appearance SLIGHTLY CLOUDY (CLEAR) Urine pH 6.0 (5-6) Ur Specific Canmer 1.012 (1.005-1.025) Urine Protein NEGATIVE (Negative) Urine Ketones TRACE (NEGATIVE) Urine Blood NEGATIVE (0-5) Arnoldo/ul Urine Nitrite NEGATIVE (NEGATIVE) Urine Bilirubin NEGATIVE (NEGATIVE) Urine Urobilinogen 2 (0-1) mg/dL Ur Leukocyte Esterase SMALL (NEGATIVE) Urine WBC (Auto) 3-5 (0-5) /HPF Urine RBC (Auto) 3-5 (0-2) /HPF U Hyaline Cast (Auto) 0-2 (0-2) /LPF U Epithel Cells (Auto) FEW (FEW) /HPF Urine Bacteria (Auto) NONE (NEGATIVE) /HPF Urine Mucus (Auto) SLIGHT (NEGATIVE) /HPF Urine Culture Reflexed NO (NO) Urine Glucose NEGATIVE (NEGATIVE) mg/dL Influenza Type A Ag NEGATIVE (NEGATIVE) Influenza Type B Ag NEGATIVE (NEGATIVE) RSV (PCR) NEGATIVE (Negative) SARS-CoV-2 (PCR) NEGATIVE (NEGATIVE) Slides for Path Review 07/26/21 07/26/21 07/26/21 Range/Units 17:45 14:00 14:00 WBC (4.0-10.5) K/mm3 RBC (4.1-5.4) M/mm3 Hgb (12.0-16.0) gm/dl Hct (35-47) % MCV (78-100) fl MCH (26-32) pg MCHC (32-36) g/dl RDW (11.5-14.0) % Plt Count (150-450) K/mm3 MPV (7.5-11.0) fl Gran % (36.0-66.0) % Eos # (Auto) (0-0.5) Absolute Lymphs (auto) (1.0-4.6) Absolute Monos (auto) (0.0-1.3) Lymphocytes % (24.0-44.0) % Monocytes % (0.0-12.0) % Eosinophils % (0.00-5.0) % Basophils % (0.0-0.4) % Absolute Granulocytes (1.4-6.9) Basophils # (0-0.4) PT 20.3 H (9.4-12.5) SECONDS INR 1.72 (0.8-3.0) APTT 36.7 H (25.1-36.5) SECONDS Sodium (137-145) mmol/L Potassium (3.5-5.1) mmol/L Chloride (98-107) mmol/L Carbon Dioxide (22-30) mmol/L Anion Gap (5-15) MEQ/L BUN (7-17) mg/dL Creatinine (0.52-1.04) mg/dL Estimated GFR ML/MIN Glucose (74-106) mg/dL Hemoglobin A1c (4.5-6.0) % Calcium (8.4-10.2) mg/dL Total Bilirubin (0.2-1.3) mg/dL AST (14-36) U/L ALT (0-35) U/L Alkaline Phosphatase (38-126) U/L Troponin I < 0.012 < 0.012 (0.000-0.034) ng/mL Serum Total Protein (6.3-8.2) g/dL Albumin (3.5-5.0) g/dL Urine Color (YELLOW) Urine Appearance (CLEAR) Urine pH (5-6) Ur Specific Canmer (1.005-1.025) Urine Protein (Negative) Urine Ketones (NEGATIVE) Urine Blood (0-5) Arnoldo/ul Urine Nitrite (NEGATIVE) Urine Bilirubin (NEGATIVE) Urine Urobilinogen (0-1) mg/dL Ur Leukocyte Esterase (NEGATIVE) Urine WBC (Auto) (0-5) /HPF Urine RBC (Auto) (0-2) /HPF U Hyaline Cast (Auto) (0-2) /LPF U Epithel Cells (Auto) (FEW) /HPF Urine Bacteria (Auto) (NEGATIVE) /HPF Urine Mucus (Auto) (NEGATIVE) /HPF Urine Culture Reflexed (NO) Urine Glucose (NEGATIVE) mg/dL Influenza Type A Ag (NEGATIVE) Influenza Type B Ag (NEGATIVE) RSV (PCR) (Negative) SARS-CoV-2 (PCR) (NEGATIVE) Slides for Path Review 07/26/21 07/26/21 Range/Units 14:00 14:00 WBC 5.8 (4.0-10.5) K/mm3 RBC 4.28 (4.1-5.4) M/mm3 Hgb 12.3 (12.0-16.0) gm/dl Hct 39.1 (35-47) % MCV 91.4 (78-100) fl MCH 28.7 (26-32) pg MCHC 31.5 L (32-36) g/dl RDW 15.5 H (11.5-14.0) % Plt Count 152 (150-450) K/mm3 MPV 10.2 (7.5-11.0) fl Gran % 66.7 H (36.0-66.0) % Eos # (Auto) 0.23 (0-0.5) Absolute Lymphs (auto) 1.16 (1.0-4.6) Absolute Monos (auto) 0.51 (0.0-1.3) Lymphocytes % 20.0 L (24.0-44.0) % Monocytes % 8.8 (0.0-12.0) % Eosinophils % 4.0 (0.00-5.0) % Basophils % 0.5 (0.0-0.4) % Absolute Granulocytes 3.86 (1.4-6.9) Basophils # 0.03 (0-0.4) PT (9.4-12.5) SECONDS INR (0.8-3.0) APTT (25.1-36.5) SECONDS Sodium 137 (137-145) mmol/L Potassium 3.7 (3.5-5.1) mmol/L Chloride 103 (98-107) mmol/L Carbon Dioxide 25 (22-30) mmol/L Anion Gap 12.6 (5-15) MEQ/L BUN 13 (7-17) mg/dL Creatinine 0.60 (0.52-1.04) mg/dL Estimated GFR > 60.0 ML/MIN Glucose 134 H (74-106) mg/dL Hemoglobin A1c (4.5-6.0) % Calcium 9.0 (8.4-10.2) mg/dL Total Bilirubin 0.90 (0.2-1.3) mg/dL AST 77 H (14-36) U/L ALT 52 H (0-35) U/L Alkaline Phosphatase 106 (38-126) U/L Troponin I (0.000-0.034) ng/mL Serum Total Protein 6.9 (6.3-8.2) g/dL Albumin 4.0 (3.5-5.0) g/dL Urine Color (YELLOW) Urine Appearance (CLEAR) Urine pH (5-6) Ur Specific Canmer (1.005-1.025) Urine Protein (Negative) Urine Ketones (NEGATIVE) Urine Blood (0-5) Arnoldo/ul Urine Nitrite (NEGATIVE) Urine Bilirubin (NEGATIVE) Urine Urobilinogen (0-1) mg/dL Ur Leukocyte Esterase (NEGATIVE) Urine WBC (Auto) (0-5) /HPF Urine RBC (Auto) (0-2) /HPF U Hyaline Cast (Auto) (0-2) /LPF U Epithel Cells (Auto) (FEW) /HPF Urine Bacteria (Auto) (NEGATIVE) /HPF Urine Mucus (Auto) (NEGATIVE) /HPF Urine Culture Reflexed (NO) Urine Glucose (NEGATIVE) mg/dL Influenza Type A Ag (NEGATIVE) Influenza Type B Ag (NEGATIVE) RSV (PCR) (Negative) SARS-CoV-2 (PCR) (NEGATIVE) Slides for Path Review - Progress Progress: improved, re-examined Air Movement: good Progress Note: 07/26/21 17:11 81-year-old is evaluated for cough with generalized weakness fatigue and flulike symptoms. She is maintaining oxygen saturation around 94% on room air with some wheezing but no crackling. Not in any distress. Normal white count, grossly unremarkable work-up including chest x-ray for any acute findings reviewed by me with official report pending. I have given her a dose of antibiotic and oral steroids. Obtain blood cultures and patient is being admitted for observation. Discussed with Dr. Vázquez, reviewed history, work-up and patient is accepted for admission. Blood Culture(s) Obtained: Yes Antibiotics given: Yes Discussed with : Lisa Counseled pt/family regarding: lab results, diagnosis, need for follow-up, rad results - Departure Departure Disposition: Observation Clinical Impression: Viral syndrome, Bronchitis Condition: Stable Critical Care Time: No
[2021-07-26] MEDS ORDERED: VENTOLIN COMMON CANISTER IH ONE (15:04)
[2021-07-26] MEDS ORDERED: DELTASONE 20 MG PO ONE (16:12)
[2021-07-26] MEDS ORDERED: DELTASONE 20 MG ONE (16:32)
[2021-07-26] MEDS ORDERED: ROCEPHIN 1 Gm-D5w 50 ml Bag** 1 G/50 ML IVPB IV STA (17:16)
[2021-07-26] MEDS ORDERED: Zithromax 500 MG/ 250 ML NaCl Premix 500 MG/250 ML IVPB IV STA (17:16)
[2021-07-26 18:36] LABS: INFLUENZA A NEGATIVE (NEGATIVE); INFLUENZA B NEGATIVE (NEGATIVE); RESPIRATORY SYNCTIAL VIRUS NEGATIVE (Negative); SARS-CoV-2 Xpert Express NEGATIVE (NEGATIVE)
--- NOTE | 2021-07-26 18:59 | XRAY ---
Indication: Cough. Weakness. Comparison: January 02, 2018. Portable chest again demonstrates scattered calcified granulomas bilaterally and mild right hemidiaphragm elevation. Heart not enlarged with new left AICD. Bony thorax intact again with mild degenerative changes. No acute cardiopulmonary abnormalities.
[2021-07-26] MEDS ORDERED: ROCEPHIN 1 Gm-D5w 50 ml Bag** 1 G/50 ML IVPB IV ONE (19:27)
[2021-07-26 19:57] LABS: Appearance SLIGHTLY CLOUDY (CLEAR); Bilirubin NEGATIVE (NEGATIVE); Blood NEGATIVE Ery/ul (0-5); Epithelial Cells FEW /HPF (FEW); Glucose NEGATIVE (NEGATIVE); Hyaline Casts 0-2 /LPF (0-2); Ketones TRACE (NEGATIVE); Leukocyte Esterase SMALL (NEGATIVE); Mucus SLIGHT /HPF (NEGATIVE); Nitrite NEGATIVE (NEGATIVE); Protein,Urine Dip NEGATIVE (Negative); Specific Gravity 1.012 (1.005-1.025); Urobilinogen 2 mg/dL (0-1)
[2021-07-26] MEDS ORDERED: Robitussin AC Syrup Unit Dose Cup PO PRN (21:19)
[2021-07-26] MEDS: ELIQUIS 2.5 MG TABLET PO SCH (21:58)
[2021-07-26] MEDS: Ambien 5 MG Tablet PO SCH (21:58)
[2021-07-26] MEDS: COREG 12.5 MG PO SCH (21:59)
[2021-07-26] MEDS: Singulair 10 MG PO SCH (21:59)
[2021-07-26] MEDS: ENTRESTO 49 MG-51 MG TABLET PO SCH (21:59)
[2021-07-26] MEDS: Ditropan XL 5 MG PO SCH (21:59)
[2021-07-26] MEDS ORDERED: Protonix 20MG Tablet PO SCH (22:00)
[2021-07-26] MEDS: DUONEB 0.5-3 MG/3 ml Neb IH SCH (22:03)
[2021-07-26] MEDS: Protonix 40MG Tablet PO SCH (22:08)
[2021-07-27 05:56] LABS: Absolute Neutrophil Ct (ANC) 2.03 (1.4-6.9); Basophil (Absolute #) 0 (0-0.4); Eosinophil (Absolute #) 0 (0-0.5); Hematocrit 35.5 % (35-47); Hemoglobin 11.2 gm/dl (12.0-16.0); Lymphocyte (Absolute #) 0.56 (1.0-4.6); Lymphocytes % 19.9 % (24.0-44.0); Mean Cell Volume 91.3 fl (78-100); Mean Corpuscular Hemoglobin 28.8 pg (26-32); Mean Corpuscular Hgb Concent. 31.5 g/dl (32-36); Mean Platelet Volume 10.3 fl (7.5-11.0); Monocyte (Absolute #) 0.23 (0.0-1.3); Monocytes % 8.2 % (0.0-12.0); Neutrophil % 71.9 % (36.0-66.0); Platelet Count 127 K/mm3 (150-450); Red Blood Count 3.89 M/mm3 (4.1-5.4); Red Cell Distribution Width 15.2 % (11.5-14.0); White Blood Count 2.8 K/mm3 (4.0-10.5)
[2021-07-27 06:06] LABS: ALBUMIN 3.9 g/dL (3.5-5.0); ALKALINE PHOSPHATASE 93 U/L (38-126); ANION GAP 13.7 MEQ/L (5-15); BLOOD UREA NITROGEN 16 mg/dL (7-17); CHLORIDE 104 mmol/L (98-107); Calcium 9.2 mg/dL (8.4-10.2); Carbon Dioxide 25 mmol/L (22-30); Creatinine 1 0.55 mg/dL (0.52-1.04); EST GLOMERULAR FILTRATION RATE > 60.0 ML/MIN; Glucose 176 mg/dL (74-106); Potassium 3.7 mmol/L (3.5-5.1); SGOT/AST 50 U/L (14-36); SGPT/ALT 45 U/L (0-35); SODIUM 139 mmol/L (137-145); Total Protein 6.7 g/dL (6.3-8.2)
[2021-07-27] MEDS: DUONEB 0.5-3 MG/3 ml Neb IH SCH ×4 (07:08→18:39)
--- NOTE | 2021-07-27 08:49 | PCM.HP ---
History of Present Illness - Chief Complaint Chief Complaint: GEN WEAKNESS History of Present Illness: is a 81 year old female who presented to the ER with complaints of a dry cough, wheezing na dshortness of breath. she has had some sinus congestion, subjective chills and fever. hx of copd, sees Dr Sam. Patient is hoarse during interview but states she is feeling better, had a nebulizer treatment shortly before exam. - Review of Systems Constitutional: No Fever, No Chills Respiratory: Cough, Short Of Breath, Wheezing Cardiac: No Chest Pain, No Edema, No Syncope Abdominal/Gastrointestinal: No Abdominal Pain, No Nausea, No Vomiting, No Diarrhea Skin: No Rash Neurological: No Dizziness, No Focal Weakness, No Sensory Changes Medications & Allergies Home Medications: Home Medication List Levothyroxine Sodium [Synthroid] 112 mcg PO DAILY 04/18/12 [History Confirmed 07/26/21] Zolpidem Tartrate 10 mg [Ambien 10 MG] 5 mg PO HS 04/18/12 [History Confirmed 07/26/21] Duloxetine HCl 30 mg [Cymbalta 30 MG Capsule] 60 mg PO DAILY 01/02/18 [History Confirmed 07/26/21] Omeprazole 20 MG [Prilosec 20 mg] 20 mg HS 01/02/18 [History Confirmed 07/26/21] Pravastatin Sodium 20 mg DAILY 01/02/18 [History Confirmed 07/26/21] Carvedilol [Coreg] 25 mg PO BID 01/10/21 [History Confirmed 07/26/21] Isosorbide Mononitrate 60 mg [Imdur 60MG] 60 mg PO DAILY 01/10/21 [History Confirmed 07/26/21] Montelukast Sodium 10 mg [Singulair 10 MG] 10 mg PO HS 01/10/21 [History Confirmed 07/26/21] Oxybutynin Chloride Xl 5 mg [Ditropan XL 5 MG] 5 mg PO BID 01/10/21 [History Confirmed 07/26/21] Apixaban [Eliquis] 5 mg PO BID 07/26/21 [History Confirmed 07/26/21] Budesonide/Formoterol Fumarate [Budesonide-Formoterol 160-4.5] 2 puff IH BID 07/26/21 [History Confirmed 07/26/21] Sacubitril/Valsartan [Entresto 97 mg-103 mg Tablet] 1 tab PO BID 07/26/21 [History Confirmed 07/26/21] Allergies/Adverse Reactions: Allergies Allergy/AdvReac Type Severity Reaction Status Date / Time No Known Drug Allergies Allergy Verified 01/10/21 13:59 - Past Medical History Past Medical History: Yes Neurological History: No Pertinent History ENT History: Cataracts Cardiac History: Arrhythmia, High Cholesterol, Hypertension, Other Respiratory History: COPD Endocrine Medical History: Hypothyroidism Musculoskelatal History: Osteoarthritis, Other GI Medical History: GERD History: No Pertinent History Pyscho-Social History: Anxiety Reproductive Disorders: No Pertinent History Comment: HX OF ELBOW SURGERY FOR RADIAL TUNNEL RIGHT 1984. PATIENT SCHEDULED FOR PACEMAKER/DEFIBRILLATOR 08/16/19. GERD, ANXIETY, POLYMYALGIA - Female History Are you now?: No - Past Surgical History Past Surgical History: Yes Neuro Surgical History: No Pertinent History Cardiac History: No Pertinent History, Internal Defibrillator, Pacemaker Respiratory Surgery: No Pertinent History GI Surgical History: Appendectomy, Cholecystectomy Genitourinary Surgical Hx: No Pertinent History Musculskeletal Surgical Hx: Other Female Surgical History: No Pertinent History Other Surgical History: breast biopsy. radial tunnel surgery on right arm - Social History Smoking Status: Never smoker Exposure to second hand smoke: No Alcohol: None Drug Use: none - Physical Exam Vital Signs: Vital Signs - 24 hr Temp Pulse Resp BP Pulse Ox 07/27/21 07:55 97.0 F 82 19 136/59 93 L 07/27/21 07:11 85 18 93 L 07/27/21 04:00 97.5 F 78 18 102/53 91 L 07/26/21 23:28 97.6 F 73 16 125/57 94 L 07/26/21 22:03 73 18 93 L 07/26/21 20:11 97.1 F 73 20 134/64 95 07/26/21 19:43 75 86 H 132/89 95 07/26/21 17:19 95 07/26/21 16:08 84 24 91 L 07/26/21 14:59 78 21 102/68 95 07/26/21 13:45 97.6 F 75 19 102/68 95 General Appearance: no apparent distress, other (hoarse) Neurologic Exam: alert, oriented x 3 Respiratory Exam: wheezing Cardiovascular Exam: regular rate/rhythm, normal heart sounds, normal peripheral pulses Gastrointestinal/Abdomen Exam: soft, normal bowel sounds, No tenderness, No mass Extremity Exam: normal inspection, normal range of motion, pelvis stable Skin Exam: normal color, warm, dry, No rash Results - Labs Lab/Micro Results: Lab Results-Last 24 Hours 07/26/21 07/26/21 07/26/21 Range/Units 14:00 14:00 14:00 WBC 5.8 (4.0-10.5) K/mm3 RBC 4.28 (4.1-5.4) M/mm3 Hgb 12.3 (12.0-16.0) gm/dl Hct 39.1 (35-47) % MCV 91.4 (78-100) fl MCH 28.7 (26-32) pg MCHC 31.5 L (32-36) g/dl RDW 15.5 H (11.5-14.0) % Plt Count 152 (150-450) K/mm3 MPV 10.2 (7.5-11.0) fl Gran % 66.7 H (36.0-66.0) % Eos # (Auto) 0.23 (0-0.5) Absolute Lymphs (auto) 1.16 (1.0-4.6) Absolute Monos (auto) 0.51 (0.0-1.3) Lymphocytes % 20.0 L (24.0-44.0) % Monocytes % 8.8 (0.0-12.0) % Eosinophils % 4.0 (0.00-5.0) % Basophils % 0.5 (0.0-0.4) % Absolute Granulocytes 3.86 (1.4-6.9) Basophils # 0.03 (0-0.4) PT 20.3 H (9.4-12.5) SECONDS INR 1.72 (0.8-3.0) APTT 36.7 H (25.1-36.5) SECONDS Sodium 137 (137-145) mmol/L Potassium 3.7 (3.5-5.1) mmol/L Chloride 103 (98-107) mmol/L Carbon Dioxide 25 (22-30) mmol/L Anion Gap 12.6 (5-15) MEQ/L BUN 13 (7-17) mg/dL Creatinine 0.60 (0.52-1.04) mg/dL Estimated GFR > 60.0 ML/MIN Glucose 134 H (74-106) mg/dL Calcium 9.0 (8.4-10.2) mg/dL Total Bilirubin 0.90 (0.2-1.3) mg/dL AST 77 H (14-36) U/L ALT 52 H (0-35) U/L Alkaline Phosphatase 106 (38-126) U/L Troponin I (0.000-0.034) ng/mL Serum Total Protein 6.9 (6.3-8.2) g/dL Albumin 4.0 (3.5-5.0) g/dL Urine Color (YELLOW) Urine Appearance (CLEAR) Urine pH (5-6) Ur Specific [place] (1.005-1.025) Urine Protein (Negative) Urine Ketones (NEGATIVE) Urine Blood (0-5) Arnoldo/ul Urine Nitrite (NEGATIVE) Urine Bilirubin (NEGATIVE) Urine Urobilinogen (0-1) mg/dL Ur Leukocyte Esterase (NEGATIVE) Urine WBC (Auto) (0-5) /HPF Urine RBC (Auto) (0-2) /HPF U Hyaline Cast (Auto) (0-2) /LPF U Epithel Cells (Auto) (FEW) /HPF Urine Bacteria (Auto) (NEGATIVE) /HPF Urine Mucus (Auto) (NEGATIVE) /HPF Urine Culture Reflexed (NO) Urine Glucose (NEGATIVE) mg/dL Influenza Type A Ag (NEGATIVE) Influenza Type B Ag (NEGATIVE) RSV (PCR) (Negative) SARS-CoV-2 (PCR) (NEGATIVE) 07/26/21 07/26/21 07/26/21 Range/Units 14:00 17:45 17:56 WBC (4.0-10.5) K/mm3 RBC (4.1-5.4) M/mm3 Hgb (12.0-16.0) gm/dl Hct (35-47) % MCV (78-100) fl MCH (26-32) pg MCHC (32-36) g/dl RDW (11.5-14.0) % Plt Count (150-450) K/mm3 MPV (7.5-11.0) fl Gran % (36.0-66.0) % Eos # (Auto) (0-0.5) Absolute Lymphs (auto) (1.0-4.6) Absolute Monos (auto) (0.0-1.3) Lymphocytes % (24.0-44.0) % Monocytes % (0.0-12.0) % Eosinophils % (0.00-5.0) % Basophils % (0.0-0.4) % Absolute Granulocytes (1.4-6.9) Basophils # (0-0.4) PT (9.4-12.5) SECONDS INR (0.8-3.0) APTT (25.1-36.5) SECONDS Sodium (137-145) mmol/L Potassium (3.5-5.1) mmol/L Chloride (98-107) mmol/L Carbon Dioxide (22-30) mmol/L Anion Gap (5-15) MEQ/L BUN (7-17) mg/dL Creatinine (0.52-1.04) mg/dL Estimated GFR ML/MIN Glucose (74-106) mg/dL Calcium (8.4-10.2) mg/dL Total Bilirubin (0.2-1.3) mg/dL AST (14-36) U/L ALT (0-35) U/L Alkaline Phosphatase (38-126) U/L Troponin I < 0.012 < 0.012 (0.000-0.034) ng/mL Serum Total Protein (6.3-8.2) g/dL Albumin (3.5-5.0) g/dL Urine Color (YELLOW) Urine Appearance (CLEAR) Urine pH (5-6) Ur Specific [place] (1.005-1.025) Urine Protein (Negative) Urine Ketones (NEGATIVE) Urine Blood (0-5) Arnoldo/ul Urine Nitrite (NEGATIVE) Urine Bilirubin (NEGATIVE) Urine Urobilinogen (0-1) mg/dL Ur Leukocyte Esterase (NEGATIVE) Urine WBC (Auto) (0-5) /HPF Urine RBC (Auto) (0-2) /HPF U Hyaline Cast (Auto) (0-2) /LPF U Epithel Cells (Auto) (FEW) /HPF Urine Bacteria (Auto) (NEGATIVE) /HPF Urine Mucus (Auto) (NEGATIVE) /HPF Urine Culture Reflexed (NO) Urine Glucose (NEGATIVE) mg/dL Influenza Type A Ag NEGATIVE (NEGATIVE) Influenza Type B Ag NEGATIVE (NEGATIVE) RSV (PCR) NEGATIVE (Negative) SARS-CoV-2 (PCR) NEGATIVE (NEGATIVE) 07/26/21 07/26/21 07/26/21 Range/Units 19:42 20:28 23:58 WBC (4.0-10.5) K/mm3 RBC (4.1-5.4) M/mm3 Hgb (12.0-16.0) gm/dl Hct (35-47) % MCV (78-100) fl MCH (26-32) pg MCHC (32-36) g/dl RDW (11.5-14.0) % Plt Count (150-450) K/mm3 MPV (7.5-11.0) fl Gran % (36.0-66.0) % Eos # (Auto) (0-0.5) Absolute Lymphs (auto) (1.0-4.6) Absolute Monos (auto) (0.0-1.3) Lymphocytes % (24.0-44.0) % Monocytes % (0.0-12.0) % Eosinophils % (0.00-5.0) % Basophils % (0.0-0.4) % Absolute Granulocytes (1.4-6.9) Basophils # (0-0.4) PT (9.4-12.5) SECONDS INR (0.8-3.0) APTT (25.1-36.5) SECONDS Sodium (137-145) mmol/L Potassium (3.5-5.1) mmol/L Chloride (98-107) mmol/L Carbon Dioxide (22-30) mmol/L Anion Gap (5-15) MEQ/L BUN (7-17) mg/dL Creatinine (0.52-1.04) mg/dL Estimated GFR ML/MIN Glucose (74-106) mg/dL Calcium (8.4-10.2) mg/dL Total Bilirubin (0.2-1.3) mg/dL AST (14-36) U/L ALT (0-35) U/L Alkaline Phosphatase (38-126) U/L Troponin I < 0.012 < 0.012 (0.000-0.034) ng/mL Serum Total Protein (6.3-8.2) g/dL Albumin (3.5-5.0) g/dL Urine Color JEFF (YELLOW) Urine Appearance SLIGHTLY CLOUDY (CLEAR) Urine pH 6.0 (5-6) Ur Specific [place] 1.012 (1.005-1.025) Urine Protein NEGATIVE (Negative) Urine Ketones TRACE (NEGATIVE) Urine Blood NEGATIVE (0-5) Arnoldo/ul Urine Nitrite NEGATIVE (NEGATIVE) Urine Bilirubin NEGATIVE (NEGATIVE) Urine Urobilinogen 2 (0-1) mg/dL Ur Leukocyte Esterase SMALL (NEGATIVE) Urine WBC (Auto) 3-5 (0-5) /HPF Urine RBC (Auto) 3-5 (0-2) /HPF U Hyaline Cast (Auto) 0-2 (0-2) /LPF U Epithel Cells (Auto) FEW (FEW) /HPF Urine Bacteria (Auto) NONE (NEGATIVE) /HPF Urine Mucus (Auto) SLIGHT (NEGATIVE) /HPF Urine Culture Reflexed NO (NO) Urine Glucose NEGATIVE (NEGATIVE) mg/dL Influenza Type A Ag (NEGATIVE) Influenza Type B Ag (NEGATIVE) RSV (PCR) (Negative) SARS-CoV-2 (PCR) (NEGATIVE) 07/27/21 07/27/21 Range/Units 05:07 05:07 WBC 2.8 L (4.0-10.5) K/mm3 RBC 3.89 L (4.1-5.4) M/mm3 Hgb 11.2 L (12.0-16.0) gm/dl Hct 35.5 (35-47) % MCV 91.3 (78-100) fl MCH 28.8 (26-32) pg MCHC 31.5 L (32-36) g/dl RDW 15.2 H (11.5-14.0) % Plt Count 127 L (150-450) K/mm3 MPV 10.3 (7.5-11.0) fl Gran % 71.9 H (36.0-66.0) % Eos # (Auto) 0 (0-0.5) Absolute Lymphs (auto) 0.56 L (1.0-4.6) Absolute Monos (auto) 0.23 (0.0-1.3) Lymphocytes % 19.9 L (24.0-44.0) % Monocytes % 8.2 (0.0-12.0) % Eosinophils % 0.0 (0.00-5.0) % Basophils % 0.0 (0.0-0.4) % Absolute Granulocytes 2.03 (1.4-6.9) Basophils # 0 (0-0.4) PT (9.4-12.5) SECONDS INR (0.8-3.0) APTT (25.1-36.5) SECONDS Sodium 139 (137-145) mmol/L Potassium 3.7 (3.5-5.1) mmol/L Chloride 104 (98-107) mmol/L Carbon Dioxide 25 (22-30) mmol/L Anion Gap 13.7 (5-15) MEQ/L BUN 16 (7-17) mg/dL Creatinine 0.55 (0.52-1.04) mg/dL Estimated GFR > 60.0 ML/MIN Glucose 176 H (74-106) mg/dL Calcium 9.2 (8.4-10.2) mg/dL Total Bilirubin 0.50 (0.2-1.3) mg/dL AST 50 H (14-36) U/L ALT 45 H (0-35) U/L Alkaline Phosphatase 93 (38-126) U/L Troponin I (0.000-0.034) ng/mL Serum Total Protein 6.7 (6.3-8.2) g/dL Albumin 3.9 (3.5-5.0) g/dL Urine Color (YELLOW) Urine Appearance (CLEAR) Urine pH (5-6) Ur Specific [place] (1.005-1.025) Urine Protein (Negative) Urine Ketones (NEGATIVE) Urine Blood (0-5) Arnoldo/ul Urine Nitrite (NEGATIVE) Urine Bilirubin (NEGATIVE) Urine Urobilinogen (0-1) mg/dL Ur Leukocyte Esterase (NEGATIVE) Urine WBC (Auto) (0-5) /HPF Urine RBC (Auto) (0-2) /HPF U Hyaline Cast (Auto) (0-2) /LPF U Epithel Cells (Auto) (FEW) /HPF Urine Bacteria (Auto) (NEGATIVE) /HPF Urine Mucus (Auto) (NEGATIVE) /HPF Urine Culture Reflexed (NO) Urine Glucose (NEGATIVE) mg/dL Influenza Type A Ag (NEGATIVE) Influenza Type B Ag (NEGATIVE) RSV (PCR) (Negative) SARS-CoV-2 (PCR) (NEGATIVE) - Radiology Impressions Radiology Exams & Impressions: Radiology Procedures Category Date Time Status CHEST 1 VIEW (PORTABLE) Stat Exams 07/26/21 13:40 Completed - Other Procedures and Tests Respiratory Therapy 07/26/21 16:08 Flutter Therapy UD Respiratory Therapy Assessment DAILY 07/26/21 19:54 Oxygen Nasal Cannula 2 lpm Assessment/Plan (1) Acute exacerbation of chronic obstructive airways disease Current Visit: Yes Status: Acute Assessment & Plan: rocephin/zithromax, nebs and IV solu medrol. patient is tight and wheezing on exam. Code(s): J44.1 - CHRONIC OBSTRUCTIVE PULMONARY DISEASE W (ACUTE) EXACERBATION
[2021-07-27] MEDS: Cymbalta 30 MG Capsule PO SCH (09:13)
[2021-07-27] MEDS: COREG 12.5 MG PO SCH ×2 (09:14→21:08)
[2021-07-27] MEDS: Ditropan XL 5 MG PO SCH ×2 (09:14→21:08)
[2021-07-27] MEDS: Imdur 60MG PO SCH (09:14)
[2021-07-27] MEDS: ZOCOR 20MG PO SCH (09:14)
[2021-07-27] MEDS: ELIQUIS 2.5 MG TABLET PO SCH ×2 (09:14→21:08)
[2021-07-27] MEDS: ENTRESTO 49 MG-51 MG TABLET PO SCH ×2 (09:14→21:08)
[2021-07-27] MEDS: SYNTHROID 112 MCG PO SCH (09:15)
[2021-07-27] MEDS: ROCEPHIN 1 Gm-D5w 50 ml Bag** 1 G/50 ML IVPB IV SCH (09:15)
[2021-07-27] MEDS ORDERED: PROTONIX 40 MG IV IV SCH (10:00)
[2021-07-27] MEDS ORDERED: NON-FORMULARY ITEM (Pravastatin Sodium [Pravastatin Sodium] 10 MG Tablet) PO SCH (10:00)
[2021-07-27 10:21] LABS: Slide Review 1 YES
[2021-07-27] MEDS ORDERED: MEDICATION INTERVENTION MC SCH (11:00)
[2021-07-27] MEDS ORDERED: solu-MEDROL IV SCH (12:00)
[2021-07-27] MEDS: solu-MEDROL 80 MG, Sterile H2O 10 ml 2 ML IV SCH ×6 (12:53→23:56)
[2021-07-27] MEDS: TYLENOL 325 MG PO PRN (13:22)
[2021-07-27] MEDS: Zofran 4 MG/2 ML VIAL IV PRN (15:53)
[2021-07-27] MEDS: MARY'S MOUTHWASH PO SCH ×2 (17:58→23:53)
[2021-07-27] MEDS: PATIENT OWN MEDICATION IH SCH (18:39)
[2021-07-27] MEDS: Zithromax 500 MG/ 250 ML NaCl Premix 500 MG/250 ML IVPB IV SCH (21:08)
[2021-07-27] MEDS: Protonix 40MG Tablet PO SCH (21:08)
[2021-07-27] MEDS: Ambien 5 MG Tablet PO SCH (21:08)
[2021-07-27] MEDS: Singulair 10 MG PO SCH (21:09)
[2021-07-27] MEDS ORDERED: NON-FORMULARY ITEM (Budesonide/Formoterol Fumarate [Budesonide-Formoterol 160-4.5] 10.2 GM IH SCH (22:00)
[2021-07-27] MEDS ORDERED: PROVENTIL Solution 2.5 MG/0.5 ML IH ONE (23:24)
[2021-07-27] MEDS: PROVENTIL 2.5 MG/3 ML NEB IH PRN (23:46)
[2021-07-28] MEDS: DUONEB 0.5-3 MG/3 ml Neb IH SCH ×4 (05:01→18:53)
[2021-07-28] MEDS: PATIENT OWN MEDICATION IH SCH ×2 (05:01→18:43)
[2021-07-28] MEDS: solu-MEDROL 80 MG, Sterile H2O 10 ml 2 ML IV SCH ×6 (05:14→17:42)
[2021-07-28] MEDS: MARY'S MOUTHWASH PO SCH ×3 (05:14→17:43)
[2021-07-28 05:46] LABS: Basophil (Absolute #) 0 (0-0.4); Eosinophil (Absolute #) 0 (0-0.5); Hematocrit 35.4 % (35-47); Hemoglobin 11.1 gm/dl (12.0-16.0); Lymphocyte (Absolute #) 0.45 (1.0-4.6); Lymphocytes % 16.4 % (24.0-44.0); Mean Cell Volume 91.9 fl (78-100); Mean Corpuscular Hemoglobin 28.8 pg (26-32); Mean Corpuscular Hgb Concent. 31.4 g/dl (32-36); Mean Platelet Volume 10.7 fl (7.5-11.0); Monocyte (Absolute #) 0.09 (0.0-1.3); Monocytes % 3.3 % (0.0-12.0); Neutrophil % 80.3 % (36.0-66.0); Platelet Count 114 K/mm3 (150-450); Red Blood Count 3.85 M/mm3 (4.1-5.4); Red Cell Distribution Width 15.1 % (11.5-14.0); White Blood Count 2.7 K/mm3 (4.0-10.5)
[2021-07-28 06:28] LABS: ANION GAP 16.9 MEQ/L (5-15); BLOOD UREA NITROGEN 16 mg/dL (7-17); CHLORIDE 105 mmol/L (98-107); Calcium 9.2 mg/dL (8.4-10.2); Carbon Dioxide 22 mmol/L (22-30); Creatinine 1 0.53 mg/dL (0.52-1.04); EST GLOMERULAR FILTRATION RATE > 60.0 ML/MIN; Glucose 218 mg/dL (74-106); SODIUM 140 mmol/L (137-145)
[2021-07-28 07:09] LABS: Slide Review 1 YES
--- NOTE | 2021-07-28 08:42 | PCM.NOTE ---
Date and Time: 07/28/21838 Subjective Assessment: Pt feeling a bit better, but still having SOB. Yajaira po. O2 sat down to 88 while sleeping. - Review of Systems Constitutional: No Fever Respiratory: Cough, Short Of Breath Objective Exam General Appearance: no apparent distress, alert Neurologic Exam: oriented x 3, cooperative Skin Exam: normal color, warm, dry, No rash Respiratory Exam: diminished breath sounds (fair air exchange), prolonged expirations, wheezing (expiratory wheezes in all lung santiago, throughout expiration), No crackles/rales, No rhonchi Cardiovascular Exam: regular rate/rhythm, normal heart sounds, No murmur Gastrointestinal/Abdomen Exam: soft, normal bowel sounds, No tenderness, No distention, No mass, No guarding, No rebound Extremity Exam: No pedal edema, No swelling OBJECTIVE DATA Vital Signs: Vital Signs - 24 hr Temp Pulse Resp BP Pulse Ox 07/28/21 06:38 99.0 F 90 20 131/60 91 L 07/28/21 05:01 79 20 88 L 07/28/21 04:00 98.2 F 89 18 111/59 90 L 07/27/21 23:49 97.7 F 84 18 132/69 90 L 07/27/21 23:30 20 90 L 07/27/21 19:41 97.7 F 73 18 123/58 96 07/27/21 18:42 89 20 94 L 07/27/21 16:00 97.7 F 90 20 131/63 90 L 07/27/21 14:58 77 18 92 L 07/27/21 12:00 96.6 F 78 19 109/73 93 L 07/27/21 11:14 78 18 93 L Pain Assessment - Last Documented Pain Intensity 0 Pain Scale Used [facility] Intake and Output: Intake & Output 07/25/21 07/26/21 07/27/21 07/28/21 11:59 11:59 11:59 11:59 Intake Total 1020 840 Balance 1020 840 Weight 69.9 kg 71.8 kg Lab Results: Lab Results-Last 24 Hours 07/27/21 07/28/21 07/28/21 Range/Units 05:07 04:38 04:38 WBC 2.7 L (4.0-10.5) K/mm3 RBC 3.85 L (4.1-5.4) M/mm3 Hgb 11.1 L (12.0-16.0) gm/dl Hct 35.4 (35-47) % MCV 91.9 (78-100) fl MCH 28.8 (26-32) pg MCHC 31.4 L (32-36) g/dl RDW 15.1 H (11.5-14.0) % Plt Count 114 L (150-450) K/mm3 MPV 10.7 (7.5-11.0) fl Gran % 80.3 H (36.0-66.0) % Eos # (Auto) 0 (0-0.5) Absolute Lymphs (auto) 0.45 L (1.0-4.6) Absolute Monos (auto) 0.09 (0.0-1.3) Lymphocytes % 16.4 L (24.0-44.0) % Monocytes % 3.3 (0.0-12.0) % Eosinophils % 0.0 (0.00-5.0) % Basophils % 0.0 (0.0-0.4) % Absolute Granulocytes 2.20 (1.4-6.9) Basophils # 0 (0-0.4) Sodium 140 (137-145) mmol/L Potassium 4.0 (3.5-5.1) mmol/L Chloride 105 (98-107) mmol/L Carbon Dioxide 22 (22-30) mmol/L Anion Gap 16.9 H (5-15) MEQ/L BUN 16 (7-17) mg/dL Creatinine 0.53 (0.52-1.04) mg/dL Estimated GFR > 60.0 ML/MIN Glucose 218 H (74-106) mg/dL Calcium 9.2 (8.4-10.2) mg/dL Slides for Path Review YES YES Radiology Exams: Radiology Procedures Category Date Time Status CHEST 1 VIEW (PORTABLE) Stat Exams 07/26/21 13:40 Completed Assessment/Plan (1) Acute exacerbation of chronic obstructive airways disease Current Visit: Yes Status: Acute Assessment & Plan: Some improvement but still very wheezy throughout. on IV steroid 80mg q6h, noé ephin and zithromax and nebulizers. O2 down to 88 % at night so will do overnight pulse ox study tonight. Code(s): J44.1 - CHRONIC OBSTRUCTIVE PULMONARY DISEASE W (ACUTE) EXACERBATION (2) Hyperglycemia Current Visit: Yes Status: Acute Assessment & Plan: likely just due to steroid, but will check a1c. Added low dose SS. Code(s): R73.9 - HYPERGLYCEMIA, UNSPECIFIED (3) Coronary arteriosclerosis Current Visit: No Status: Chronic (4) Hypertension Current Visit: No Status: Chronic Qualifiers: Hypertension type: primary hypertension Qualified Code(s): I10 - Essential (primary) hypertension Code(s): I10 - ESSENTIAL (PRIMARY) HYPERTENSION
[2021-07-28] MEDS: ROCEPHIN 1 Gm-D5w 50 ml Bag** 1 G/50 ML IVPB IV SCH (09:36)
[2021-07-28] MEDS: ENTRESTO 49 MG-51 MG TABLET PO SCH ×2 (09:37→22:14)
[2021-07-28] MEDS: Cymbalta 30 MG Capsule PO SCH (09:37)
[2021-07-28] MEDS: COREG 12.5 MG PO SCH ×2 (09:37→22:15)
[2021-07-28] MEDS: SYNTHROID 112 MCG PO SCH (09:37)
[2021-07-28] MEDS: Imdur 60MG PO SCH (09:38)
[2021-07-28] MEDS: ELIQUIS 2.5 MG TABLET PO SCH ×2 (09:38→22:14)
[2021-07-28] MEDS: Ditropan XL 5 MG PO SCH ×2 (09:38→22:14)
[2021-07-28] MEDS: ZOCOR 20MG PO SCH (09:38)
[2021-07-28] MEDS: MILK OF MAGNESIA 30 ML PO PRN (15:41)
[2021-07-28] MEDS: PROVENTIL 2.5 MG/3 ML NEB IH PRN (18:43)
[2021-07-28] MEDS: TYLENOL 325 MG PO PRN (22:14)
[2021-07-28] MEDS: Protonix 40MG Tablet PO SCH (22:15)
[2021-07-28] MEDS: Ambien 5 MG Tablet PO SCH (22:15)
[2021-07-28] MEDS: Singulair 10 MG PO SCH (22:15)
[2021-07-28] MEDS: Zithromax 500 MG/ 250 ML NaCl Premix 500 MG/250 ML IVPB IV SCH (22:15)
[2021-07-28] MEDS: HUMALOG SQ PRN (22:16)
[2021-07-29] MEDS: solu-MEDROL 80 MG, Sterile H2O 10 ml 2 ML IV SCH ×10 (00:09→23:11)
[2021-07-29] MEDS: MARY'S MOUTHWASH PO SCH ×5 (00:09→23:24)
[2021-07-29] MEDS ORDERED: solu-MEDROL ONE (06:33)
[2021-07-29] MEDS: DUONEB 0.5-3 MG/3 ml Neb IH SCH ×4 (07:05→19:02)
[2021-07-29] MEDS: PATIENT OWN MEDICATION IH SCH ×2 (07:08→19:02)
--- NOTE | 2021-07-29 08:48 | PCM.NOTE ---
Date and Time: 07/29/21844 Subjective Assessment: patient has borderline oxygen saturation on room air, she is still hoarse and has some sore throat. thinks she has improved but is weak on her feet still. Objective Exam General Appearance: no apparent distress Neurologic Exam: alert, oriented x 3 Respiratory Exam: prolonged expirations, wheezing Cardiovascular Exam: regular rate/rhythm, normal heart sounds Gastrointestinal/Abdomen Exam: soft, No tenderness, No mass Extremity Exam: normal inspection, normal range of motion OBJECTIVE DATA Vital Signs: Vital Signs - 24 hr Temp Pulse Resp BP Pulse Ox 07/29/21 07:52 97.7 F 81 16 136/62 90 L 07/29/21 07:08 70 18 90 L 07/29/21 04:00 98 F 81 18 125/80 90 L 07/29/21 00:00 98.2 F 81 18 148/66 93 L 07/28/21 20:00 98.2 F 78 20 156/82 92 L 07/28/21 18:55 80 20 92 L 07/28/21 16:00 97.2 F 86 21 111/56 92 L 07/28/21 15:07 87 16 92 L 07/28/21 12:00 97.7 F 71 20 172/76 07/28/21 11:28 81 18 91 L Pain Assessment - Last Documented Pain Intensity 0 Pain Scale Used 0-10 Pain Scale Intake and Output: Intake & Output 07/26/21 07/27/21 07/28/21 07/29/21 11:59 11:59 11:59 11:59 Intake Total 1020 1200 1390 Balance 1020 1200 1390 Weight 69.9 kg 71.8 kg 72.4 kg Lab Results: Lab Results-Last 24 Hours 07/28/21 07/28/21 07/28/21 Range/Units 06:00 12:32 16:42 POC Glucometer 180 H 190 H (74 to 106) mg/dL Hemoglobin A1c 5.32 (4.5-6.0) % 07/28/21 07/29/21 Range/Units 20:27 06:43 POC Glucometer 258 H 163 H (74 to 106) mg/dL Hemoglobin A1c (4.5-6.0) % Multi-Disciplinary Progress Notes: Multi-Disciplinary Progress Notes 07/28/21 12:54 Case Management Note by Snehal Kelly PATIENT CONTINUES TO DENY ANY NEW NEEDS REGARDING DC AT THIS TIME. PATIENT TO HAVE OVERNIGHT PULSE OX DONE THIS EVENING TO EVAL FOR HOME OXYGEN IT WAS NOTED SHE WAS 88% EARLY THIS AM Initialized on 07/28/21 12:54 - END OF NOTE Assessment/Plan (1) Acute exacerbation of chronic obstructive airways disease Current Visit: Yes Status: Acute Assessment & Plan: continue rocephin/zithromax and IV solu medrol, receiving 80mg IV q6 hrs. still with significant wheezing/bronchospasm, not ready for discharge yet. Code(s): J44.1 - CHRONIC OBSTRUCTIVE PULMONARY DISEASE W (ACUTE) EXACERBATION (2) Hyperglycemia Current Visit: Yes Status: Acute Assessment & Plan: a1c normal at 5.3%, continue insulin coverage but reassured this is steroid affect and not new onset of diabetes. Code(s): R73.9 - HYPERGLYCEMIA, UNSPECIFIED
[2021-07-29] MEDS: COREG 12.5 MG PO SCH ×2 (10:32→21:07)
[2021-07-29] MEDS: Cymbalta 30 MG Capsule PO SCH (10:32)
[2021-07-29] MEDS: ELIQUIS 2.5 MG TABLET PO SCH ×2 (10:32→21:06)
[2021-07-29] MEDS: ENTRESTO 49 MG-51 MG TABLET PO SCH ×2 (10:32→21:07)
[2021-07-29] MEDS: Ditropan XL 5 MG PO SCH ×2 (10:32→21:07)
[2021-07-29] MEDS: Imdur 60MG PO SCH (10:32)
[2021-07-29] MEDS: TYLENOL 325 MG PO PRN (10:32)
[2021-07-29] MEDS: ZOCOR 20MG PO SCH (10:33)
[2021-07-29] MEDS: SYNTHROID 112 MCG PO SCH (10:33)
[2021-07-29] MEDS: ROCEPHIN 1 Gm-D5w 50 ml Bag** 1 G/50 ML IVPB IV SCH (10:39)
[2021-07-29] MEDS: MILK OF MAGNESIA 30 ML PO PRN (15:47)
[2021-07-29] MEDS: Singulair 10 MG PO SCH (21:06)
[2021-07-29] MEDS: Ambien 5 MG Tablet PO SCH (21:06)
[2021-07-29] MEDS: Zithromax 500 MG/ 250 ML NaCl Premix 500 MG/250 ML IVPB IV SCH (21:06)
[2021-07-29] MEDS: Protonix 40MG Tablet PO SCH (21:06)
[2021-07-30] MEDS: solu-MEDROL 80 MG, Sterile H2O 10 ml 2 ML IV SCH ×8 (05:19→23:04)
[2021-07-30] MEDS: MILK OF MAGNESIA 30 ML PO PRN (05:36)
[2021-07-30] MEDS: MARY'S MOUTHWASH PO SCH ×4 (05:39→23:03)
[2021-07-30 06:02] LABS: Hematocrit 36.6 % (35-47); Hemoglobin 11.4 gm/dl (12.0-16.0); Mean Cell Volume 91.5 fl (78-100); Mean Corpuscular Hemoglobin 28.5 pg (26-32); Mean Corpuscular Hgb Concent. 31.1 g/dl (32-36); Mean Platelet Volume 10.8 fl (7.5-11.0); Platelet Count 143 K/mm3 (150-450); Red Cell Distribution Width 14.9 % (11.5-14.0)
[2021-07-30 06:22] LABS: ANION GAP 14.9 MEQ/L (5-15); BLOOD UREA NITROGEN 18 mg/dL (7-17); CHLORIDE 100 mmol/L (98-107); Carbon Dioxide 29 mmol/L (22-30); Creatinine 1 0.44 mg/dL (0.52-1.04); EST GLOMERULAR FILTRATION RATE > 60.0 ML/MIN; Glucose 181 mg/dL (74-106); MAGNESIUM 2.4 mg/dL (1.6-2.3); Potassium 3.8 mmol/L (3.5-5.1); SODIUM 140 mmol/L (137-145)
[2021-07-30] MEDS: PATIENT OWN MEDICATION IH SCH ×2 (06:54→19:22)
[2021-07-30] MEDS: DUONEB 0.5-3 MG/3 ml Neb IH SCH ×4 (06:54→19:22)
[2021-07-30 07:01] LABS: NT PRO BNP 1230 pg/mL (0-1800)
[2021-07-30 08:27] LABS: BAND 2 % (0.0-2.0); Lymphocytes 14 % (24-44); Monocyte 2 % (0.0-12.0); Neutrophils 82 % (36.0-66.0); Platelet Estimate DECREASED (NORMAL); Total Cells Counted 100
--- NOTE | 2021-07-30 08:43 | PCM.NOTE ---
Date and Time: 07/30/21 08 Subjective Assessment: patient is still feeling weak, she is currently not on oxygen. hoarseness is improving some. no new complaints Objective Exam General Appearance: no apparent distress, alert Neurologic Exam: alert, oriented x 3, cooperative, normal mood/affect, nml cerebellar function, sensation nml, No motor deficits Respiratory Exam: prolonged expirations, wheezing Cardiovascular Exam: regular rate/rhythm, normal heart sounds Gastrointestinal/Abdomen Exam: soft, No tenderness, No mass Extremity Exam: normal inspection, normal range of motion OBJECTIVE DATA Vital Signs: Vital Signs - 24 hr Temp Pulse Resp BP BP Pulse Ox 07/30/21 07:11 97.1 F 73 18 161/75 95 07/30/21 07:00 74 20 95 07/30/21 04:00 98 F 79 20 171/78 145/64 92 L 07/29/21 23:26 93 L 07/29/21 23:25 97.1 F 77 24 130/63 90 L 07/29/21 19:22 97.7 F 70 20 156/73 92 L 07/29/21 19:06 70 20 92 L 07/29/21 16:00 98.4 F 70 16 145/64 97 07/29/21 15:39 77 18 91 L 07/29/21 14:41 95 07/29/21 12:00 98.1 F 69 16 121/56 91 L 07/29/21 10:39 81 20 90 L Pain Assessment - Last Documented Pain Intensity 1 Pain Scale Used 0-10 Pain Scale Intake and Output: Intake & Output 07/27/21 07/28/21 07/29/21 07/30/21 11:59 11:59 11:59 11:59 Intake Total 1020 1200 1390 1290 Balance 1020 1200 1390 1290 Weight 69.9 kg 71.8 kg 72.4 kg Lab Results: Lab Results-Last 24 Hours 07/29/21 07/29/21 07/29/21 Range/Units 12:25 15:44 21:05 WBC (4.0-10.5) K/mm3 RBC (4.1-5.4) M/mm3 Hgb (12.0-16.0) gm/dl Hct (35-47) % MCV (78-100) fl MCH (26-32) pg MCHC (32-36) g/dl RDW (11.5-14.0) % Plt Count (150-450) K/mm3 MPV (7.5-11.0) fl Segmented Neutrophils (36.0-66.0) % Band Neutrophils (0.0-2.0) % Lymphocytes (Manual) (24-44) % Monocytes (Manual) (0.0-12.0) % Platelet Estimate (NORMAL) RBC Morphology Sodium (137-145) mmol/L Potassium (3.5-5.1) mmol/L Chloride (98-107) mmol/L Carbon Dioxide (22-30) mmol/L Anion Gap (5-15) MEQ/L BUN (7-17) mg/dL Creatinine (0.52-1.04) mg/dL Estimated GFR ML/MIN Glucose (74-106) mg/dL POC Glucometer 167 H 183 H 178 H (74 to 106) mg/dL Calcium (8.4-10.2) mg/dL Magnesium (1.6-2.3) mg/dL NT-Pro-B Natriuret Pep (0-1800) pg/mL 07/30/21 07/30/21 07/30/21 Range/Units 05:30 05:30 07:00 WBC 5.0 (4.0-10.5) K/mm3 RBC 4.00 L (4.1-5.4) M/mm3 Hgb 11.4 L (12.0-16.0) gm/dl Hct 36.6 (35-47) % MCV 91.5 (78-100) fl MCH 28.5 (26-32) pg MCHC 31.1 L (32-36) g/dl RDW 14.9 H (11.5-14.0) % Plt Count 143 L (150-450) K/mm3 MPV 10.8 (7.5-11.0) fl Segmented Neutrophils 82 H (36.0-66.0) % Band Neutrophils 2 (0.0-2.0) % Lymphocytes (Manual) 14 L (24-44) % Monocytes (Manual) 2 (0.0-12.0) % Platelet Estimate DECREASED (NORMAL) RBC Morphology NORMAL Sodium 140 (137-145) mmol/L Potassium 3.8 (3.5-5.1) mmol/L Chloride 100 (98-107) mmol/L Carbon Dioxide 29 (22-30) mmol/L Anion Gap 14.9 (5-15) MEQ/L BUN 18 H (7-17) mg/dL Creatinine 0.44 L (0.52-1.04) mg/dL Estimated GFR > 60.0 ML/MIN Glucose 181 H (74-106) mg/dL POC Glucometer 186 H (74 to 106) mg/dL Calcium 9.0 (8.4-10.2) mg/dL Magnesium 2.4 H (1.6-2.3) mg/dL NT-Pro-B Natriuret Pep 1230 (0-1800) pg/mL Multi-Disciplinary Progress Notes: Multi-Disciplinary Progress Notes 07/29/21 14:17 Case Management Note by Snehal Kelly PATIENT HAD OVERNIGHT PULSE OX STUDY LAST PM, PER RT SHE QUALIFIED FOR HOME OXYGEN. DR. RDZ WOULD LIKE PATIENT TO START ON HOME OXYGEN AT 2L/NC AT HS. CURRENTLY (07/29)PATIENT DOES NOT NEED OXYGEN WHILE AWAKE. ORDER FORM PLACED ON CHART FOR ORDERING OVER THE HOLIDAY/WEEKEND PATIENT DOES NOT HAVE AN ANTICIPATED DC DATE AT THIS TIME. IF PATIENT REQUIRES NEBULIZERS AT HOME- SHE WILL NEED A NEB MACHINE. IT WILL NEED TO BE PROVIDED THRU [facility]. THIS CAN EITHER BE ADDED TO THE OXYGEN FORM AND ORDERED THAT WAY OR A PRESCRIPTION CAN BE FAXED IN WITH SUPPORTING DOCUMENTS. [facility] WILL NEED TO BE NOTIFIED BY PHONE OF NEW ORDERS SO THEY CAN SET HER UP THE OFFICE WILL BE CLOSED. Initialized on 07/29/21 14:17 - END OF NOTE 07/29/21 11:30 (created 07/29/21 16:38) Case Management Note by Snehal Kelly S/W PATIENT- SHE AGAIN DENIES THE NEED FOR ANYTHING NEW AT TIME OF DC. SHE REPORTS HER DAUGHTER CAN ASSIST HER NEEDED. SHE WAS NOTIFIED THAT DR. RDZ WOULD LIKE FOR HER TO USE OXYGEN WHEN SHE SLEEPS. SHE WAS OKAY WITH THIS BEING SET UP THRU [facility]. Initialized on 07/29/21 16:38 - END OF NOTE Assessment/Plan (1) Acute exacerbation of chronic obstructive airways disease Current Visit: Yes Status: Acute Assessment & Plan: continue rocephin/zithromax, IV solu medrol and nebs. patient has slow clinical improvement but still with significant wheezing and bronchospasm Code(s): J44.1 - CHRONIC OBSTRUCTIVE PULMONARY DISEASE W (ACUTE) EXACERBATION (2) Hyperglycemia Current Visit: Yes Status: Acute Code(s): R73.9 - HYPERGLYCEMIA, UNSPECIFIED
[2021-07-30] MEDS: Ditropan XL 5 MG PO SCH ×2 (09:46→21:00)
[2021-07-30] MEDS: ELIQUIS 2.5 MG TABLET PO SCH ×2 (09:46→20:59)
[2021-07-30] MEDS: COREG 12.5 MG PO SCH ×2 (09:46→20:59)
[2021-07-30] MEDS: Cymbalta 30 MG Capsule PO SCH (09:46)
[2021-07-30] MEDS: ZOCOR 20MG PO SCH (09:46)
[2021-07-30] MEDS: ROCEPHIN 1 Gm-D5w 50 ml Bag** 1 G/50 ML IVPB IV SCH (09:46)
[2021-07-30] MEDS ORDERED: DULCOLAX 5 MG PO PRN (09:47)
[2021-07-30] MEDS: SYNTHROID 112 MCG PO SCH (09:47)
[2021-07-30] MEDS: Imdur 60MG PO SCH (09:47)
[2021-07-30] MEDS: ENTRESTO 49 MG-51 MG TABLET PO SCH ×2 (09:47→21:00)
[2021-07-30] MEDS: HUMALOG SQ PRN ×2 (12:02→21:11)
[2021-07-30] MEDS: Singulair 10 MG PO SCH (14:30)
[2021-07-30] MEDS: Zithromax 500 MG/ 250 ML NaCl Premix 500 MG/250 ML IVPB IV SCH (20:59)
[2021-07-30] MEDS: Ambien 5 MG Tablet PO SCH (21:00)
[2021-07-30] MEDS: Protonix 40MG Tablet PO SCH (21:00)
[2021-07-30] MEDS: Zofran 4 MG/2 ML VIAL IV PRN (23:10)
[2021-07-31] MEDS: solu-MEDROL 80 MG, Sterile H2O 10 ml 2 ML IV SCH ×2 (05:12)
[2021-07-31] MEDS: MARY'S MOUTHWASH PO SCH ×3 (05:16→17:23)
[2021-07-31 05:46] LABS: Hematocrit 33.5 % (35-47); Hemoglobin 10.4 gm/dl (12.0-16.0); Mean Corpuscular Hemoglobin 28.6 pg (26-32); Mean Platelet Volume 10.6 fl (7.5-11.0); Platelet Count 133 K/mm3 (150-450); Red Blood Count 3.64 M/mm3 (4.1-5.4); Red Cell Distribution Width 14.9 % (11.5-14.0); White Blood Count 3.2 K/mm3 (4.0-10.5)
[2021-07-31 06:08] LABS: ANION GAP 13.1 MEQ/L (5-15); BLOOD UREA NITROGEN 23 mg/dL (7-17); CHLORIDE 100 mmol/L (98-107); Calcium 8.4 mg/dL (8.4-10.2); Carbon Dioxide 29 mmol/L (22-30); Creatinine 1 0.51 mg/dL (0.52-1.04); EST GLOMERULAR FILTRATION RATE > 60.0 ML/MIN; Glucose 193 mg/dL (74-106); Potassium 3.6 mmol/L (3.5-5.1); SODIUM 139 mmol/L (137-145)
[2021-07-31 06:35] LABS: Lymphocytes 7 % (24-44); Monocyte 2 % (0.0-12.0); Neutrophils 91 % (36.0-66.0); Total Cells Counted 100
[2021-07-31 06:36] LABS: ANISOCYTOSIS 1+; Platelet Estimate NORMAL (NORMAL); Poikilocytosis 1+
[2021-07-31] MEDS: DUONEB 0.5-3 MG/3 ml Neb IH SCH ×4 (07:25→18:34)
[2021-07-31] MEDS: PATIENT OWN MEDICATION IH SCH ×2 (07:27→18:34)
--- NOTE | 2021-07-31 09:57 | PCM.NOTE ---
Date and Time: 07/31/21 0956 Subjective Assessment: patient notes improvement, still not back to her baseline but she is improving clinically. not requiring oxygen but can't tolerate much exertion. Objective Exam General Appearance: no apparent distress Neurologic Exam: alert, oriented x 3 Respiratory Exam: prolonged expirations, wheezing Gastrointestinal/Abdomen Exam: soft, No tenderness, No mass Extremity Exam: normal inspection, normal range of motion OBJECTIVE DATA Vital Signs: Vital Signs - 24 hr Temp Pulse Resp BP Pulse Ox 07/31/21 07:47 98.0 F 75 16 170/86 91 L 07/31/21 07:27 66 20 90 L 07/31/21 04:00 97.8 F 74 20 138/67 91 L 07/30/21 23:38 97.6 F 69 20 136/73 93 L 07/30/21 19:53 98.4 F 63 18 158/70 91 L 07/30/21 19:22 63 18 91 L 07/30/21 16:00 97.5 F 65 16 108/55 91 L 07/30/21 14:27 65 20 94 L 07/30/21 12:00 97.3 F 62 16 173/70 97 07/30/21 10:06 64 18 90 L Pain Assessment - Last Documented Pain Intensity 1 Pain Scale Used 0-10 Pain Scale Intake and Output: Intake & Output 07/28/21 07/29/21 07/30/21 07/31/21 11:59 11:59 11:59 11:59 Intake Total 1200 1390 1290 440 Balance 1200 1390 1290 440 Weight 71.8 kg 72.4 kg 71.3 kg Lab Results: Lab Results-Last 24 Hours 07/30/21 07/30/21 07/30/21 Range/Units 11:37 16:26 20:53 WBC (4.0-10.5) K/mm3 RBC (4.1-5.4) M/mm3 Hgb (12.0-16.0) gm/dl Hct (35-47) % MCV (78-100) fl MCH (26-32) pg MCHC (32-36) g/dl RDW (11.5-14.0) % Plt Count (150-450) K/mm3 MPV (7.5-11.0) fl Segmented Neutrophils (36.0-66.0) % Lymphocytes (Manual) (24-44) % Monocytes (Manual) (0.0-12.0) % Platelet Estimate (NORMAL) RBC Morphology Poikilocytosis Anisocytosis Sodium (137-145) mmol/L Potassium (3.5-5.1) mmol/L Chloride (98-107) mmol/L Carbon Dioxide (22-30) mmol/L Anion Gap (5-15) MEQ/L BUN (7-17) mg/dL Creatinine (0.52-1.04) mg/dL Estimated GFR ML/MIN Glucose (74-106) mg/dL POC Glucometer 207 H 208 H 247 H (74 to 106) mg/dL Calcium (8.4-10.2) mg/dL 07/31/21 07/31/21 07/31/21 Range/Units 05:00 05:00 07:10 WBC 3.2 L (4.0-10.5) K/mm3 RBC 3.64 L (4.1-5.4) M/mm3 Hgb 10.4 L (12.0-16.0) gm/dl Hct 33.5 L (35-47) % MCV 92.0 (78-100) fl MCH 28.6 (26-32) pg MCHC 31.0 L (32-36) g/dl RDW 14.9 H (11.5-14.0) % Plt Count 133 L (150-450) K/mm3 MPV 10.6 (7.5-11.0) fl Segmented Neutrophils 91 H (36.0-66.0) % Lymphocytes (Manual) 7 L (24-44) % Monocytes (Manual) 2 (0.0-12.0) % Platelet Estimate NORMAL (NORMAL) RBC Morphology ABNORMAL Poikilocytosis 1+ Anisocytosis 1+ Sodium 139 (137-145) mmol/L Potassium 3.6 (3.5-5.1) mmol/L Chloride 100 (98-107) mmol/L Carbon Dioxide 29 (22-30) mmol/L Anion Gap 13.1 (5-15) MEQ/L BUN 23 H (7-17) mg/dL Creatinine 0.51 L (0.52-1.04) mg/dL Estimated GFR > 60.0 ML/MIN Glucose 193 H (74-106) mg/dL POC Glucometer 197 H (74 to 106) mg/dL Calcium 8.4 (8.4-10.2) mg/dL Assessment/Plan (1) Acute exacerbation of chronic obstructive airways disease Current Visit: Yes Status: Acute Assessment & Plan: continue current management, will reduce IV steroid dose. likely home tomorrow Code(s): J44.1 - CHRONIC OBSTRUCTIVE PULMONARY DISEASE W (ACUTE) EXACERBATION (2) Hyperglycemia Current Visit: Yes Status: Acute Code(s): R73.9 - HYPERGLYCEMIA, UNSPECIFIED
[2021-07-31] MEDS: ENTRESTO 49 MG-51 MG TABLET PO SCH ×2 (10:06→22:15)
[2021-07-31] MEDS: ELIQUIS 2.5 MG TABLET PO SCH ×2 (10:06→22:16)
[2021-07-31] MEDS: Cymbalta 30 MG Capsule PO SCH (10:06)
[2021-07-31] MEDS: ZOCOR 20MG PO SCH (10:07)
[2021-07-31] MEDS: Imdur 60MG PO SCH (10:07)
[2021-07-31] MEDS: Ditropan XL 5 MG PO SCH ×2 (10:07→22:16)
[2021-07-31] MEDS: ROCEPHIN 1 Gm-D5w 50 ml Bag** 1 G/50 ML IVPB IV SCH (10:07)
[2021-07-31] MEDS: COREG 12.5 MG PO SCH ×2 (10:07→22:16)
[2021-07-31] MEDS: SYNTHROID 112 MCG PO SCH (10:08)
[2021-07-31] MEDS: HUMALOG SQ PRN ×2 (11:45→17:17)
[2021-07-31] MEDS: solu-MEDROL IV SCH ×2 (12:39→17:17)
[2021-07-31] MEDS ORDERED: solu-MEDROL W/DILUENT 500 MG IV SCH (13:00)
[2021-07-31] MEDS: Zithromax 500 MG/ 250 ML NaCl Premix 500 MG/250 ML IVPB IV SCH (22:15)
[2021-07-31] MEDS: Singulair 10 MG PO SCH (22:16)
[2021-07-31] MEDS: Ambien 5 MG Tablet PO SCH (22:16)
[2021-07-31] MEDS: Protonix 40MG Tablet PO SCH (22:16)
[2021-08-01] MEDS: MARY'S MOUTHWASH PO SCH ×5 (00:11→23:50)
[2021-08-01] MEDS: solu-MEDROL IV SCH ×3 (00:19→12:28)
[2021-08-01 06:46] LABS: Hematocrit 35.3 % (35-47); Mean Cell Volume 91.2 fl (78-100); Mean Corpuscular Hemoglobin 28.4 pg (26-32); Mean Corpuscular Hgb Concent. 31.2 g/dl (32-36); Mean Platelet Volume 10.4 fl (7.5-11.0); Platelet Count 174 K/mm3 (150-450); Red Blood Count 3.87 M/mm3 (4.1-5.4); Red Cell Distribution Width 14.5 % (11.5-14.0); White Blood Count 4.2 K/mm3 (4.0-10.5)
[2021-08-01 08:01] LABS: ANION GAP 13.5 MEQ/L (5-15); BLOOD UREA NITROGEN 20 mg/dL (7-17); CHLORIDE 100 mmol/L (98-107); Calcium 8.4 mg/dL (8.4-10.2); Carbon Dioxide 28 mmol/L (22-30); EST GLOMERULAR FILTRATION RATE > 60.0 ML/MIN; Glucose 183 mg/dL (74-106); Potassium 3.6 mmol/L (3.5-5.1); SODIUM 138 mmol/L (137-145)
[2021-08-01] MEDS: DUONEB 0.5-3 MG/3 ml Neb IH SCH ×4 (08:49→18:53)
[2021-08-01] MEDS: PATIENT OWN MEDICATION IH SCH ×2 (08:49→18:54)
[2021-08-01] MEDS: ROCEPHIN 1 Gm-D5w 50 ml Bag** 1 G/50 ML IVPB IV SCH (10:02)
[2021-08-01] MEDS: SYNTHROID 112 MCG PO SCH (10:03)
[2021-08-01] MEDS: COREG 12.5 MG PO SCH ×2 (10:03→22:31)
[2021-08-01] MEDS: ELIQUIS 2.5 MG TABLET PO SCH ×2 (10:03→22:31)
[2021-08-01] MEDS: Cymbalta 30 MG Capsule PO SCH (10:03)
[2021-08-01] MEDS: ENTRESTO 49 MG-51 MG TABLET PO SCH ×2 (10:03→22:30)
[2021-08-01] MEDS: Ditropan XL 5 MG PO SCH ×2 (10:03→22:30)
[2021-08-01] MEDS: ZOCOR 20MG PO SCH (10:04)
[2021-08-01] MEDS: Imdur 60MG PO SCH (10:04)
[2021-08-01 10:29] LABS: BAND 1 % (0.0-2.0); Lymphocytes 8 % (24-44); Monocyte 3 % (0.0-12.0); Neutrophils 88 % (36.0-66.0); Platelet Estimate NORMAL (NORMAL); Total Cells Counted 100
[2021-08-01] MEDS: HUMALOG SQ PRN ×2 (12:28→22:31)
[2021-08-01] MEDS: Robitussin AC Syrup Unit Dose Cup PO PRN ×2 (12:34→22:30)
[2021-08-01] MEDS ORDERED: BENADRYL 50 MG/ML IV ONE (12:55)
[2021-08-01] MEDS ORDERED: BENADRYL 50 MG/ML ONE (13:05)
[2021-08-01] MEDS ORDERED: Diflucan 100 MG ONE (16:59)
--- NOTE | 2021-08-01 18:12 | XRAY ---
Indication: Short of breath and cough. Comparison: July 26, 2021. Portable chest unchanged again demonstrating scattered calcified granulomas, left AICD, and right hemidiaphragm elevation. Remaining heart and lungs unremarkable. No new/acute abnormalities. Comment: Preliminary interpretation made by [facility]. No critical discrepancy.
--- NOTE | 2021-08-01 21:35 | PCM.NOTE ---
Date and Time: 08/01/212121 Subjective Assessment: Patient is still struggling with cough,now productive of yellow tinged mucus- sent for gram stain and C&S. Denies chest pain. CXR today no infiltrate,no cardiomegaly, no effusion. WBC has been low normal to low with left shift throughtout stay. C/O itching on scalp and some anxiety . Uses a special shampoo at home and takes Zyrtec . Objective Exam General Appearance: mild distress (scratching scalp,cough) Neurologic Exam: alert, oriented x 3, cooperative Skin Exam: normal color, warm, dry Eye Exam: eyes nml inspection Ears, Nose, Throat Exam: normal ENT inspection Neck Exam: normal inspection Respiratory Exam: rhonchi (bilateral), wheezing (mid bilateral) Cardiovascular Exam: regular rate/rhythm Gastrointestinal/Abdomen Exam: soft (nontender) Extremity Exam: normal inspection Back Exam: normal inspection OBJECTIVE DATA Vital Signs: Vital Signs - 24 hr Temp Pulse Resp BP Pulse Ox 08/01/21 20:00 98 F 64 16 169/72 99 08/01/21 19:00 66 16 96 08/01/21 16:00 98.9 F 64 17 145/66 93 L 08/01/21 14:52 63 18 93 L 08/01/21 12:00 98.9 F 62 17 180/74 94 L 08/01/21 11:27 65 14 94 L 08/01/21 08:49 68 16 95 08/01/21 08:00 98.9 F 69 24 176/69 94 L 08/01/21 04:00 98.0 F 68 18 174/74 95 07/31/21 23:54 97.0 F 68 21 136/61 95 Pain Assessment - Last Documented Pain Intensity 0 Pain Scale Used 0-10 Pain Scale Intake and Output: Intake & Output 07/30/21 07/31/21 08/01/21 08/02/21 11:59 11:59 11:59 11:59 Intake Total 1290 440 360 420 Output Total 500 Balance 1290 440 360 -80 Weight 71.3 kg 70.9 kg 70.9 kg Lab Results: Lab Results-Last 24 Hours 07/31/21 08/01/21 08/01/21 Range/Units 21:45 06:07 06:10 WBC 4.2 (4.0-10.5) K/mm3 RBC 3.87 L (4.1-5.4) M/mm3 Hgb 11.0 L (12.0-16.0) gm/dl Hct 35.3 (35-47) % MCV 91.2 (78-100) fl MCH 28.4 (26-32) pg MCHC 31.2 L (32-36) g/dl RDW 14.5 H (11.5-14.0) % Plt Count 174 (150-450) K/mm3 MPV 10.4 (7.5-11.0) fl Segmented Neutrophils 88 H (36.0-66.0) % Band Neutrophils 1 (0.0-2.0) % Lymphocytes (Manual) 8 L (24-44) % Monocytes (Manual) 3 (0.0-12.0) % Platelet Estimate NORMAL (NORMAL) RBC Morphology NORMAL Sodium 138 (137-145) mmol/L Potassium 3.6 (3.5-5.1) mmol/L Chloride 100 (98-107) mmol/L Carbon Dioxide 28 (22-30) mmol/L Anion Gap 13.5 (5-15) MEQ/L BUN 20 H (7-17) mg/dL Creatinine 0.50 L (0.52-1.04) mg/dL Estimated GFR > 60.0 ML/MIN Glucose 183 H (74-106) mg/dL POC Glucometer 195 H (74 to 106) mg/dL Calcium 8.4 (8.4-10.2) mg/dL 08/01/21 08/01/21 08/01/21 Range/Units 07:59 11:31 16:27 WBC (4.0-10.5) K/mm3 RBC (4.1-5.4) M/mm3 Hgb (12.0-16.0) gm/dl Hct (35-47) % MCV (78-100) fl MCH (26-32) pg MCHC (32-36) g/dl RDW (11.5-14.0) % Plt Count (150-450) K/mm3 MPV (7.5-11.0) fl Segmented Neutrophils (36.0-66.0) % Band Neutrophils (0.0-2.0) % Lymphocytes (Manual) (24-44) % Monocytes (Manual) (0.0-12.0) % Platelet Estimate (NORMAL) RBC Morphology Sodium (137-145) mmol/L Potassium (3.5-5.1) mmol/L Chloride (98-107) mmol/L Carbon Dioxide (22-30) mmol/L Anion Gap (5-15) MEQ/L BUN (7-17) mg/dL Creatinine (0.52-1.04) mg/dL Estimated GFR ML/MIN Glucose (74-106) mg/dL POC Glucometer 197 H 269 H 136 H (74 to 106) mg/dL Calcium (8.4-10.2) mg/dL 08/01/21 Range/Units 20:52 WBC (4.0-10.5) K/mm3 RBC (4.1-5.4) M/mm3 Hgb (12.0-16.0) gm/dl Hct (35-47) % MCV (78-100) fl MCH (26-32) pg MCHC (32-36) g/dl RDW (11.5-14.0) % Plt Count (150-450) K/mm3 MPV (7.5-11.0) fl Segmented Neutrophils (36.0-66.0) % Band Neutrophils (0.0-2.0) % Lymphocytes (Manual) (24-44) % Monocytes (Manual) (0.0-12.0) % Platelet Estimate (NORMAL) RBC Morphology Sodium (137-145) mmol/L Potassium (3.5-5.1) mmol/L Chloride (98-107) mmol/L Carbon Dioxide (22-30) mmol/L Anion Gap (5-15) MEQ/L BUN (7-17) mg/dL Creatinine (0.52-1.04) mg/dL Estimated GFR ML/MIN Glucose (74-106) mg/dL POC Glucometer 230 H (74 to 106) mg/dL Calcium (8.4-10.2) mg/dL Radiology Exams: Radiology Procedures Category Date Time Status CHEST 2 VIEWS (PA AND LAT) Urgent Exams 08/01/21 11:26 Completed Multi-Disciplinary Progress Notes: Multi-Disciplinary Progress Notes 08/01/21 09:16 Pharmacy Note by Toan Garrison Today is day 7 of Rocephin and Zithromax. Please review if these are still needed. Initialized on 08/01/21 09:16 - END OF NOTE Assessment/Plan (1) Acute exacerbation of chronic obstructive airways disease Current Visit: Yes Status: Acute Assessment & Plan: wheezing ,increased Solumedrol,stopeed antibiotic-discuss with patient's Grievance Coordinator Dr Sam. Code(s): J44.1 - CHRONIC OBSTRUCTIVE PULMONARY DISEASE W (ACUTE) EXACERBATION (2) Neutropenia Current Visit: Yes Status: Acute Assessment & Plan: Am labs,CXR,gram stain and sputum cult.Rocephin and Zithromax dc'd. re-eval in AM. Code(s): D70.9 - NEUTROPENIA, UNSPECIFIED (3) Hyperglycemia Current Visit: Yes Status: Acute Assessment & Plan: due to steroids is on sliding scale insulin. Code(s): R73.9 - HYPERGLYCEMIA, UNSPECIFIED
[2021-08-01] MEDS: Singulair 10 MG PO SCH (22:30)
[2021-08-01] MEDS: Ambien 5 MG Tablet PO SCH (22:30)
[2021-08-01] MEDS: Protonix 40MG Tablet PO SCH (22:30)
[2021-08-01] MEDS ORDERED: solu-MEDROL ONE (22:39)
[2021-08-01] MEDS: solu-MEDROL 80 MG, Sterile H2O 10 ml 2 ML IV SCH ×2 (22:47)
[2021-08-02] MEDS: MARY'S MOUTHWASH PO SCH ×2 (05:38→11:41)
[2021-08-02] MEDS ORDERED: solu-MEDROL ONE (05:39)
[2021-08-02] MEDS: solu-MEDROL 80 MG, Sterile H2O 10 ml 2 ML IV SCH ×2 (05:44)
[2021-08-02 06:32] LABS: Hematocrit 35.2 % (35-47); Hemoglobin 11.3 gm/dl (12.0-16.0); Mean Cell Volume 90.5 fl (78-100); Mean Corpuscular Hgb Concent. 32.1 g/dl (32-36); Mean Platelet Volume 10.2 fl (7.5-11.0); Platelet Count 173 K/mm3 (150-450); Red Blood Count 3.89 M/mm3 (4.1-5.4); Red Cell Distribution Width 14.6 % (11.5-14.0)
[2021-08-02 06:56] LABS: ALBUMIN 3.2 g/dL (3.5-5.0); ALKALINE PHOSPHATASE 59 U/L (38-126); ANION GAP 12.5 MEQ/L (5-15); BLOOD UREA NITROGEN 21 mg/dL (7-17); CHLORIDE 100 mmol/L (98-107); Calcium 8.4 mg/dL (8.4-10.2); Carbon Dioxide 28 mmol/L (22-30); Creatinine 1 0.55 mg/dL (0.52-1.04); EST GLOMERULAR FILTRATION RATE > 60.0 ML/MIN; Glucose 216 mg/dL (74-106); Potassium 3.6 mmol/L (3.5-5.1); SGOT/AST 44 U/L (14-36); SGPT/ALT 73 U/L (0-35); SODIUM 137 mmol/L (137-145); Total Protein 5.7 g/dL (6.3-8.2)
[2021-08-02 07:15] LABS: BAND 1 % (0.0-2.0); Lymphocytes 3 % (24-44); Monocyte 2 % (0.0-12.0); Neutrophils 94 % (36.0-66.0); Total Cells Counted 100
[2021-08-02 07:16] LABS: Hypersegmented Polys 1+; Platelet Estimate NORMAL (NORMAL)
[2021-08-02] MEDS: DUONEB 0.5-3 MG/3 ml Neb IH SCH ×2 (08:09→12:16)
[2021-08-02] MEDS: PATIENT OWN MEDICATION IH SCH (08:10)
[2021-08-02] MEDS: Cymbalta 30 MG Capsule PO SCH (08:43)
[2021-08-02] MEDS: ZOCOR 20MG PO SCH (08:43)
[2021-08-02] MEDS: Imdur 60MG PO SCH (08:43)
[2021-08-02] MEDS: ENTRESTO 49 MG-51 MG TABLET PO SCH (08:43)
[2021-08-02] MEDS: COREG 12.5 MG PO SCH (08:43)
[2021-08-02] MEDS: Ditropan XL 5 MG PO SCH (08:44)
[2021-08-02] MEDS: ELIQUIS 2.5 MG TABLET PO SCH (08:44)
[2021-08-02] MEDS: SYNTHROID 112 MCG PO SCH (08:44)
--- NOTE | 2021-08-02 12:18 | PCM.SSS ---
History of Present Illness - Chief Complaint Chief Complaint: EXAC COPD, VIRAL SYNDROME History of Present Illness: is a 81 year old female admitted through ER with Dg COPD exacerbati on. C/O cough,sob,wheezing and sinus drainage and myalgias. Denied chest pain or abd pain. - Review of Systems Constitutional: Chills, Lethargy, Weakness Eyes: No Symptoms Ears, Nose, & Throat: Nose Congestion, Sinus Drainage Respiratory: Cough, Short Of Breath, Wheezing Cardiac: No Symptoms Abdominal/Gastrointestinal: No Symptoms Genitourinary Symptoms: No Symptoms Musculoskeletal: Myalgias Skin: No Symptoms Neurological: No Symptoms Psychological: No Symptoms Endocrine: No Symptoms Immunological/Allergic: Other (takes Zyrtec ) Medications & Allergies Home Medications: Home Medication List Levothyroxine Sodium [Synthroid] 112 mcg PO DAILY 04/18/12 [History Confirmed 07/26/21] Zolpidem Tartrate 10 mg [Ambien 10 MG] 5 mg PO HS 04/18/12 [History Confirmed 07/26/21] Duloxetine HCl 30 mg [Cymbalta 30 MG Capsule] 60 mg PO DAILY 01/02/18 [History Confirmed 07/26/21] Omeprazole 20 MG [Prilosec 20 mg] 20 mg HS 01/02/18 [History Confirmed 07/26/21] Pravastatin Sodium 20 mg DAILY 01/02/18 [History Confirmed 07/26/21] Carvedilol [Coreg] 25 mg PO BID 01/10/21 [History Confirmed 07/26/21] Isosorbide Mononitrate 60 mg [Imdur 60MG] 60 mg PO DAILY 01/10/21 [History Confirmed 07/26/21] Montelukast Sodium 10 mg [Singulair 10 MG] 10 mg PO HS 01/10/21 [History Confirmed 07/26/21] Oxybutynin Chloride Xl 5 mg [Ditropan XL 5 MG] 5 mg PO BID 01/10/21 [History Confirmed 07/26/21] Apixaban [Eliquis] 5 mg PO BID 07/26/21 [History Confirmed 07/26/21] Budesonide/Formoterol Fumarate [Budesonide-Formoterol 160-4.5] 2 puff IH BID 07/26/21 [History Confirmed 07/26/21] Sacubitril/Valsartan [Entresto 97 mg-103 mg Tablet] 1 tab PO BID 07/26/21 [History Confirmed 07/26/21] Albuterol/Ipratropium 3ml Neb* [DUONEB 0.5-3 MG/3 ml Neb] 3 ml IH TID #90 08/02/21 [Rx] Prednisone 10 mg [Deltasone 10 mg] 10 mg PO DAILY #30 tab 08/02/21 [Rx] Allergies/Adverse Reactions: Allergies Allergy/AdvReac Type Severity Reaction Status Date / Time No Known Drug Allergies Allergy Verified 01/10/21 13:59 - Past Medical History Past Medical History: Yes Neurological History: No Pertinent History ENT History: Cataracts Cardiac History: Arrhythmia, High Cholesterol, Hypertension, Other Respiratory History: COPD Endocrine Medical History: Hypothyroidism Musculoskelatal History: Osteoarthritis, Other GI Medical History: GERD History: No Pertinent History Pyscho-Social History: Anxiety Reproductive Disorders: No Pertinent History Comment: HX OF ELBOW SURGERY FOR RADIAL TUNNEL RIGHT 1983. PATIENT SCHEDULED FOR PACEMAKER/DEFIBRILLATOR 08/16/19. GERD, ANXIETY, POLYMYALGIA - Female History Are you now?: No - Past Surgical History Past Surgical History: Yes Neuro Surgical History: No Pertinent History Cardiac History: No Pertinent History, Internal Defibrillator, Pacemaker Respiratory Surgery: No Pertinent History GI Surgical History: Appendectomy, Cholecystectomy Genitourinary Surgical Hx: No Pertinent History Musculskeletal Surgical Hx: Other Female Surgical History: No Pertinent History Other Surgical History: breast biopsy. radial tunnel surgery on right arm - Social History Smoking Status: Never smoker Exposure to second hand smoke: Yes Alcohol: None Drug Use: none - Physical Exam Vital Signs: Vital Signs - 24 hr Temp Pulse Resp BP BP Pulse Ox 08/02/21 09:00 97.5 F 76 20 186/80 95 08/02/21 05:45 62 160/72 08/02/21 04:00 98.4 F 69 20 179/79 95 08/01/21 23:49 97.8 F 65 12 163/72 94 L 08/01/21 20:00 98 F 64 16 169/72 99 08/01/21 19:00 66 16 96 08/01/21 16:00 98.9 F 64 17 145/66 93 L 08/01/21 14:52 63 18 93 L General Appearance: no apparent distress Neurologic Exam: alert, oriented x 3, cooperative, normal mood/affect, nml cerebellar function, nml station & gait Eye Exam: eyes nml inspection Ears, Nose, Throat Exam: moist mucous membranes Neck Exam: normal inspection Respiratory Exam: rhonchi (loose ronchi right mid cleared with deep breath and cough) Cardiovascular Exam: regular rate/rhythm Gastrointestinal/Abdomen Exam: soft (nontender) Results - Labs Lab/Micro Results: Lab Results-Last 24 Hours 08/01/21 08/01/21 08/02/21 Range/Units 16:27 20:52 05:27 WBC 4.0 (4.0-10.5) K/mm3 RBC 3.89 L (4.1-5.4) M/mm3 Hgb 11.3 L (12.0-16.0) gm/dl Hct 35.2 (35-47) % MCV 90.5 (78-100) fl MCH 29.0 (26-32) pg MCHC 32.1 (32-36) g/dl RDW 14.6 H (11.5-14.0) % Plt Count 173 (150-450) K/mm3 MPV 10.2 (7.5-11.0) fl Segmented Neutrophils 94 H (36.0-66.0) % Band Neutrophils 1 (0.0-2.0) % Lymphocytes (Manual) 3 L (24-44) % Monocytes (Manual) 2 (0.0-12.0) % Hypersegmented Polys 1+ Platelet Estimate NORMAL (NORMAL) Sodium (137-145) mmol/L Potassium (3.5-5.1) mmol/L Chloride (98-107) mmol/L Carbon Dioxide (22-30) mmol/L Anion Gap (5-15) MEQ/L BUN (7-17) mg/dL Creatinine (0.52-1.04) mg/dL Estimated GFR ML/MIN Glucose (74-106) mg/dL POC Glucometer 136 H 230 H (74 to 106) mg/dL Calcium (8.4-10.2) mg/dL Total Bilirubin (0.2-1.3) mg/dL AST (14-36) U/L ALT (0-35) U/L Alkaline Phosphatase (38-126) U/L NT-Pro-B Natriuret Pep (0-1800) pg/mL Serum Total Protein (6.3-8.2) g/dL Albumin (3.5-5.0) g/dL 08/02/21 08/02/21 08/02/21 Range/Units 05:27 05:27 08:01 WBC (4.0-10.5) K/mm3 RBC (4.1-5.4) M/mm3 Hgb (12.0-16.0) gm/dl Hct (35-47) % MCV (78-100) fl MCH (26-32) pg MCHC (32-36) g/dl RDW (11.5-14.0) % Plt Count (150-450) K/mm3 MPV (7.5-11.0) fl Segmented Neutrophils (36.0-66.0) % Band Neutrophils (0.0-2.0) % Lymphocytes (Manual) (24-44) % Monocytes (Manual) (0.0-12.0) % Hypersegmented Polys Platelet Estimate (NORMAL) Sodium 137 (137-145) mmol/L Potassium 3.6 (3.5-5.1) mmol/L Chloride 100 (98-107) mmol/L Carbon Dioxide 28 (22-30) mmol/L Anion Gap 12.5 (5-15) MEQ/L BUN 21 H (7-17) mg/dL Creatinine 0.55 (0.52-1.04) mg/dL Estimated GFR > 60.0 ML/MIN Glucose 216 H (74-106) mg/dL POC Glucometer 197 H (74 to 106) mg/dL Calcium 8.4 (8.4-10.2) mg/dL Total Bilirubin 0.40 (0.2-1.3) mg/dL AST 44 H (14-36) U/L ALT 73 H (0-35) U/L Alkaline Phosphatase 59 (38-126) U/L NT-Pro-B Natriuret Pep 916 (0-1800) pg/mL Serum Total Protein 5.7 L (6.3-8.2) g/dL Albumin 3.2 L (3.5-5.0) g/dL Microbiology 08/01/21 11:44 Gram Stain - Final Sputum - Expectorant 11/21/21 17:50 Blood Culture Gram Stain - Final Blood Not Reportable Blood Culture - Final NO GROWTH Accuchecks Date 08/02/21 Date 08/01/21 Date 08/01/21 Time 08:04 Time 21:01 Time 16:31 - Radiology Impressions Radiology Exams & Impressions: Radiology Procedures Category Date Time Status CHEST 2 VIEWS (PA AND LAT) Urgent Exams 08/01/21 11:26 Completed Assessment/Plan (1) Acute exacerbation of chronic obstructive airways disease Current Visit: Yes Status: Acute Assessment & Plan: slow improvement with Solumedrol,Rocephin and Zithromax.Will discharge on Prednisone to gradually reduce and follow with Dr Sharp. Code(s): J44.1 - CHRONIC OBSTRUCTIVE PULMONARY DISEASE W (ACUTE) EXACERBATION (2) Neutropenia Current Visit: Yes Status: Resolved Qualifiers: Neutropenia type: unspecified Qualified Code(s): D70.9 - Neutropenia, unspecified Assessment & Plan: mild,resolved Code(s): D70.9 - NEUTROPENIA, UNSPECIFIED (3) Hyperglycemia Current Visit: Yes Status: Acute Assessment & Plan: due to IV Solumedrol Code(s): R73.9 - HYPERGLYCEMIA, UNSPECIFIED (4) CHF (congestive heart failure) Current Visit: Yes Status: Chronic Assessment & Plan: BNP in normal range during stay Code(s): I50.9 - HEART FAILURE, UNSPECIFIED Hospital Summary - Hospital Course Hospital Course: Patient admitted with respiratory illness and has had a slow recovery of bronchitis /wheezing and ronchi treated with Solumedrol ,Rocephin and Zithromax and neb treatments. Glucose levels increased on Solumedrol covered on sliding scale. Will be following up with Pressure Vessel Inspector Dr CHICHI Sharp and PCP Catherine Pineda DIRECTOR OF VITAL STATISTICS. Mild elevation of liver enzymes ,asymptomatic and will be worked up as outpatient. Hx CHF and HTN controlled throughout stay. Prednisone RX on discharge ,gradually reduce dose to tolerance.08/01/21/Sputum C&S ,g stain pending results . - Vitals & Intake/Output Vital Signs: Vital Signs Temperature 97.5 F 08/02/21 09:00 Pulse Rate 76 08/02/21 09:00 Respiratory Rate 20 08/02/21 09:00 Blood Pressure 186/80 08/02/21 09:00 O2 Sat by Pulse Oximetry 95 08/02/21 09:00 Intake & Output: Intake & Output 07/31/21 08/01/21 08/02/21 08/03/21 11:59 11:59 11:59 11:59 Intake Total 440 360 840 Output Total 1000 Balance 440 360 -160 Weight 70.9 kg 70.9 kg - Lab Result Diagrams: 08/02/21 05:27 08/02/21 05:27 Lab Results-Last 24 Hrs: Lab Results-Last 24 Hours 08/01/21 08/01/21 08/02/21 Range/Units 16:27 20:52 05:27 WBC 4.0 (4.0-10.5) K/mm3 RBC 3.89 L (4.1-5.4) M/mm3 Hgb 11.3 L (12.0-16.0) gm/dl Hct 35.2 (35-47) % MCV 90.5 (78-100) fl MCH 29.0 (26-32) pg MCHC 32.1 (32-36) g/dl RDW 14.6 H (11.5-14.0) % Plt Count 173 (150-450) K/mm3 MPV 10.2 (7.5-11.0) fl Segmented Neutrophils 94 H (36.0-66.0) % Band Neutrophils 1 (0.0-2.0) % Lymphocytes (Manual) 3 L (24-44) % Monocytes (Manual) 2 (0.0-12.0) % Hypersegmented Polys 1+ Platelet Estimate NORMAL (NORMAL) Sodium (137-145) mmol/L Potassium (3.5-5.1) mmol/L Chloride (98-107) mmol/L Carbon Dioxide (22-30) mmol/L Anion Gap (5-15) MEQ/L BUN (7-17) mg/dL Creatinine (0.52-1.04) mg/dL Estimated GFR ML/MIN Glucose (74-106) mg/dL POC Glucometer 136 H 230 H (74 to 106) mg/dL Calcium (8.4-10.2) mg/dL Total Bilirubin (0.2-1.3) mg/dL AST (14-36) U/L ALT (0-35) U/L Alkaline Phosphatase (38-126) U/L NT-Pro-B Natriuret Pep (0-1800) pg/mL Serum Total Protein (6.3-8.2) g/dL Albumin (3.5-5.0) g/dL 08/02/21 08/02/21 08/02/21 Range/Units 05:27 05:27 08:01 WBC (4.0-10.5) K/mm3 RBC (4.1-5.4) M/mm3 Hgb (12.0-16.0) gm/dl Hct (35-47) % MCV (78-100) fl MCH (26-32) pg MCHC (32-36) g/dl RDW (11.5-14.0) % Plt Count (150-450) K/mm3 MPV (7.5-11.0) fl Segmented Neutrophils (36.0-66.0) % Band Neutrophils (0.0-2.0) % Lymphocytes (Manual) (24-44) % Monocytes (Manual) (0.0-12.0) % Hypersegmented Polys Platelet Estimate (NORMAL) Sodium 137 (137-145) mmol/L Potassium 3.6 (3.5-5.1) mmol/L Chloride 100 (98-107) mmol/L Carbon Dioxide 28 (22-30) mmol/L Anion Gap 12.5 (5-15) MEQ/L BUN 21 H (7-17) mg/dL Creatinine 0.55 (0.52-1.04) mg/dL Estimated GFR > 60.0 ML/MIN Glucose 216 H (74-106) mg/dL POC Glucometer 197 H (74 to 106) mg/dL Calcium 8.4 (8.4-10.2) mg/dL Total Bilirubin 0.40 (0.2-1.3) mg/dL AST 44 H (14-36) U/L ALT 73 H (0-35) U/L Alkaline Phosphatase 59 (38-126) U/L NT-Pro-B Natriuret Pep 916 (0-1800) pg/mL Serum Total Protein 5.7 L (6.3-8.2) g/dL Albumin 3.2 L (3.5-5.0) g/dL Micro Results-Entire Visit: Microbiology 08/01/21 11:44 Gram Stain - Final Sputum - Expectorant 07/26/21 17:50 Blood Culture Gram Stain - Final Blood Not Reportable Blood Culture - Final NO GROWTH Accuchecks Date 08/02/21 Date 08/01/21 Date 08/01/21 Time 08:04 Time 21:01 Time 16:31 - Radiology Exams Ordered Rad Exams-Entire Visit: Radiology Procedures Category Date Time Status CHEST 2 VIEWS (PA AND LAT) Urgent Exams 08/01/21 11:26 Completed - Procedures and Test Procedures and Tests throughout Hospitalization: Therapy Orders & Screens 07/26/21 16:08 Flutter Therapy UD Comment: Respiratory Therapy Assessment DAILY Comment: 07/26/21 19:54 Oxygen Nasal Cannula 2 lpm Comment: AT HS 07/27/21 19:00 Respiratory MDI BID Comment: Diagnosis: GEN WEAKNESS - Discharge Disposition: Home, Self-Care Condition: Stable Prescriptions: New Prednisone 10 mg [Deltasone 10 mg] 10 mg PO DAILY #30 tab Albuterol/Ipratropium 3ml Neb* [DUONEB 0.5-3 MG/3 ml Neb] 3 ml IH TID #90 Continue Levothyroxine Sodium [Synthroid] 112 mcg PO DAILY Zolpidem Tartrate 10 mg [Ambien 10 MG] 5 mg PO HS Omeprazole 20 MG [Prilosec 20 mg] 20 mg HS Duloxetine HCl 30 mg [Cymbalta 30 MG Capsule] 60 mg PO DAILY Pravastatin Sodium 20 mg DAILY Montelukast Sodium 10 mg [Singulair 10 MG] 10 mg PO HS Oxybutynin Chloride Xl 5 mg [Ditropan XL 5 MG] 5 mg PO BID Isosorbide Mononitrate 60 mg [Imdur 60MG] 60 mg PO DAILY Carvedilol [Coreg] 25 mg PO BID Sacubitril/Valsartan [Entresto 97 mg-103 mg Tablet] 1 tab PO BID Apixaban [Eliquis] 5 mg PO BID Budesonide/Formoterol Fumarate [Budesonide-Formoterol 160-4.5] 2 puff IH BID Follow up with: MONIKA PINEDA NP [Primary Care Provider] - LINDA SHARP [ACTIVE STAFF] -
[2021-08-02 12:21] VITALS: PULSE 62; O2SAT 96
--- NOTE | 2021-08-02 13:06 | PCM.DS ---
Discharge Summary Date of Admission: 07/28/21 08:39 Date of Discharge: 08/02/21 Admitting Physician: DAYTON WARE Consults: Consults on Case 07/30/21 09:36 Consult Pulmonology ROUTINE Primary Care Provider: MONIKA SINGLETON Allergies Allergies No Known Drug Allergies Allergy (Verified 01/10/21 13:59) Hospital Summary - Hospital Course Hospital Course: NOTE - Short Stay Summary completed and should have been Discharge Summary - Vitals & Intake/Output Vital Signs: Vital Signs Temperature 97.5 F 08/02/21 09:00 Pulse Rate 62 08/02/21 12:19 Respiratory Rate 18 08/02/21 12:19 Blood Pressure 186/80 08/02/21 09:00 O2 Sat by Pulse Oximetry 96 08/02/21 12:19 Intake & Output: Intake & Output 07/31/21 08/01/21 08/02/21 08/03/21 11:59 11:59 11:59 11:59 Intake Total 440 360 840 Output Total 1000 Balance 440 360 -160 Weight 70.9 kg 71 kg - Lab Result Diagrams: 08/02/21 05:27 08/02/21 05:27 Lab Results-Last 24 Hrs: Lab Results-Last 24 Hours 08/01/21 08/01/21 08/02/21 Range/Units 16:27 20:52 05:27 WBC 4.0 (4.0-10.5) K/mm3 RBC 3.89 L (4.1-5.4) M/mm3 Hgb 11.3 L (12.0-16.0) gm/dl Hct 35.2 (35-47) % MCV 90.5 (78-100) fl MCH 29.0 (26-32) pg MCHC 32.1 (32-36) g/dl RDW 14.6 H (11.5-14.0) % Plt Count 173 (150-450) K/mm3 MPV 10.2 (7.5-11.0) fl Segmented Neutrophils 94 H (36.0-66.0) % Band Neutrophils 1 (0.0-2.0) % Lymphocytes (Manual) 3 L (24-44) % Monocytes (Manual) 2 (0.0-12.0) % Hypersegmented Polys 1+ Platelet Estimate NORMAL (NORMAL) Sodium (137-145) mmol/L Potassium (3.5-5.1) mmol/L Chloride (98-107) mmol/L Carbon Dioxide (22-30) mmol/L Anion Gap (5-15) MEQ/L BUN (7-17) mg/dL Creatinine (0.52-1.04) mg/dL Estimated GFR ML/MIN Glucose (74-106) mg/dL POC Glucometer 136 H 230 H (74 to 106) mg/dL Calcium (8.4-10.2) mg/dL Total Bilirubin (0.2-1.3) mg/dL AST (14-36) U/L ALT (0-35) U/L Alkaline Phosphatase (38-126) U/L NT-Pro-B Natriuret Pep (0-1800) pg/mL Serum Total Protein (6.3-8.2) g/dL Albumin (3.5-5.0) g/dL 08/02/21 08/02/21 08/02/21 Range/Units 05:27 05:27 08:01 WBC (4.0-10.5) K/mm3 RBC (4.1-5.4) M/mm3 Hgb (12.0-16.0) gm/dl Hct (35-47) % MCV (78-100) fl MCH (26-32) pg MCHC (32-36) g/dl RDW (11.5-14.0) % Plt Count (150-450) K/mm3 MPV (7.5-11.0) fl Segmented Neutrophils (36.0-66.0) % Band Neutrophils (0.0-2.0) % Lymphocytes (Manual) (24-44) % Monocytes (Manual) (0.0-12.0) % Hypersegmented Polys Platelet Estimate (NORMAL) Sodium 137 (137-145) mmol/L Potassium 3.6 (3.5-5.1) mmol/L Chloride 100 (98-107) mmol/L Carbon Dioxide 28 (22-30) mmol/L Anion Gap 12.5 (5-15) MEQ/L BUN 21 H (7-17) mg/dL Creatinine 0.55 (0.52-1.04) mg/dL Estimated GFR > 60.0 ML/MIN Glucose 216 H (74-106) mg/dL POC Glucometer 197 H (74 to 106) mg/dL Calcium 8.4 (8.4-10.2) mg/dL Total Bilirubin 0.40 (0.2-1.3) mg/dL AST 44 H (14-36) U/L ALT 73 H (0-35) U/L Alkaline Phosphatase 59 (38-126) U/L NT-Pro-B Natriuret Pep 916 (0-1800) pg/mL Serum Total Protein 5.7 L (6.3-8.2) g/dL Albumin 3.2 L (3.5-5.0) g/dL 08/02/21 Range/Units 12:15 WBC (4.0-10.5) K/mm3 RBC (4.1-5.4) M/mm3 Hgb (12.0-16.0) gm/dl Hct (35-47) % MCV (78-100) fl MCH (26-32) pg MCHC (32-36) g/dl RDW (11.5-14.0) % Plt Count (150-450) K/mm3 MPV (7.5-11.0) fl Segmented Neutrophils (36.0-66.0) % Band Neutrophils (0.0-2.0) % Lymphocytes (Manual) (24-44) % Monocytes (Manual) (0.0-12.0) % Hypersegmented Polys Platelet Estimate (NORMAL) Sodium (137-145) mmol/L Potassium (3.5-5.1) mmol/L Chloride (98-107) mmol/L Carbon Dioxide (22-30) mmol/L Anion Gap (5-15) MEQ/L BUN (7-17) mg/dL Creatinine (0.52-1.04) mg/dL Estimated GFR ML/MIN Glucose (74-106) mg/dL POC Glucometer 230 H (74 to 106) mg/dL Calcium (8.4-10.2) mg/dL Total Bilirubin (0.2-1.3) mg/dL AST (14-36) U/L ALT (0-35) U/L Alkaline Phosphatase (38-126) U/L NT-Pro-B Natriuret Pep (0-1800) pg/mL Serum Total Protein (6.3-8.2) g/dL Albumin (3.5-5.0) g/dL Micro Results-Entire Visit: Microbiology 08/01/21 11:44 Gram Stain - Final Sputum - Expectorant 07/26/21 17:50 Blood Culture Gram Stain - Final Blood Not Reportable Blood Culture - Final NO GROWTH Accuchecks Date 08/02/21 Date 08/02/21 Date 08/01/21 Date 08/01/21 Time 12:15 Time 08:04 Time 21:01 Time 16:31 - Radiology Exams Ordered Rad Exams-Entire Visit: Radiology Procedures Category Date Time Status CHEST 2 VIEWS (PA AND LAT) Urgent Exams 08/01/21 11:26 Completed - Procedures and Test Procedures and Tests throughout Hospitalization: Therapy Orders & Screens 07/26/21 16:08 Flutter Therapy UD Comment: Respiratory Therapy Assessment DAILY Comment: 07/26/21 19:54 Oxygen Nasal Cannula 2 lpm Comment: AT HS 07/27/21 19:00 Respiratory MDI BID Comment: Diagnosis: GEN WEAKNESS Final Diagnosis/Problem List - Final Discharge Diagnosis/Problem (1) Acute exacerbation of chronic obstructive airways disease Current Visit: Yes Status: Acute Code(s): J44.1 - CHRONIC OBSTRUCTIVE PULMONARY DISEASE W (ACUTE) EXACERBATION (2) Neutropenia Current Visit: Yes Status: Resolved Code(s): D70.9 - NEUTROPENIA, UNSPECIFIED (3) Hyperglycemia Current Visit: Yes Status: Acute Code(s): R73.9 - HYPERGLYCEMIA, UNSPECIFIED (4) CHF (congestive heart failure) Current Visit: Yes Status: Chronic Code(s): I50.9 - HEART FAILURE, UNSPECIFIED - Discharge Disposition: Home, Self-Care Condition: Stable Prescriptions: New Prednisone 10 mg [Deltasone 10 mg] 10 mg PO DAILY #30 tab Albuterol/Ipratropium 3ml Neb* [DUONEB 0.5-3 MG/3 ml Neb] 3 ml IH TID #90 Continue Levothyroxine Sodium [Synthroid] 112 mcg PO DAILY Zolpidem Tartrate 10 mg [Ambien 10 MG] 5 mg PO HS Omeprazole 20 MG [Prilosec 20 mg] 20 mg HS Duloxetine HCl 30 mg [Cymbalta 30 MG Capsule] 60 mg PO DAILY Pravastatin Sodium 20 mg DAILY Montelukast Sodium 10 mg [Singulair 10 MG] 10 mg PO HS Oxybutynin Chloride Xl 5 mg [Ditropan XL 5 MG] 5 mg PO BID Isosorbide Mononitrate 60 mg [Imdur 60MG] 60 mg PO DAILY Carvedilol [Coreg] 25 mg PO BID Sacubitril/Valsartan [Entresto 97 mg-103 mg Tablet] 1 tab PO BID Apixaban [Eliquis] 5 mg PO BID Budesonide/Formoterol Fumarate [Budesonide-Formoterol 160-4.5] 2 puff IH BID Follow up with: LINDA SHARP [ACTIVE STAFF] - MONIKA SINGLETON NP [Primary Care Provider] -
[2021-08-02 13:39] VITALS: BP 169/75
[2021-08-02] MEDS ORDERED: Diflucan 100 MG PO ONE (18:00)
== END 2021-08-02 13:27 | disposition home or self-care (01) | DRG 192 ==
LOC: ED 13:32 → MED SURG 19:51 → OBSVTOIN 07-28 08:39
PROVIDERS: ADMIT Family Medicine; ATTEND Family Medicine
DX: J44.1 Chronic obstructive pulmonary disease with (acute) exacerbation (principal); D70.9 Neutropenia, unspecified; R73.9 Hyperglycemia, unspecified; I50.9 Heart failure, unspecified; I11.0 Hypertensive heart disease with heart failure; B34.9 Viral infection, unspecified; J40 Bronchitis, not specified as acute or chronic; R53.1 Weakness; E03.9 Hypothyroidism, unspecified; E78.00 Pure hypercholesterolemia, unspecified; Z79.899 Other long term (current) drug therapy; Z20.828 Contact with and (suspected) exposure to other viral communicable diseases
CPT/HCPCS: 0241U; 36000; 36415; 71045; 71046; 80048; 80053; 81001; 82947; 83036; 83735; 83880; 84484; 85025; 85610; 85730; 87040; 87070; 93005; 93041; 93268; 94640; 94667; 94668; 94760; 94762; 99285; G0378; J0456; J0696; J1200; J1817; J2405; J2920; J2930; J7609; A9270-GY

== ENCOUNTER 2021-08-03 15:57 | Emergency (ER) | payer MEDICARE, OTHER ==
--- NOTE | 2021-08-03 16:43 | ERPHSYRPT ---
- History of Present Illness Source: patient Exam Limitations: other (Poor historian) Patient Subjective Stated Complaint: PT states "I was released from here yesterday and I felt fine but today I feel just awful." Triage Nursing Assessment: Pt presented alert and oriented X 3, skin wpd pt ambulates with a slow shuffling gait, able to speak in clear full sentences pt slightly tachypneic. Pt generalized weakness. Physician History: 81 yo wf released from hospital yesterday sent to ER by her MASTER SCHEDULER because of lethargy. Pt has a mildly productive cough but denies N/V/D/melena/hematochezia/dysuria/hematuria/chest pain/fever. Timing/Duration: today Possible Cause: occasional episodes Modifying Factors: Improves With: coughing, exertion Associated Symptoms: cough, shortness of breath, No fever, No chills, No chest pain/soreness, No dizziness, No earache, No facial pain, No headache, No lightheadedness, No muscle aches, No nasal congestion, No nasal drainage, No sinus infection, No sore throat, No wheezing Allergies/Adverse Reactions: No Known Drug Allergies Allergy (Verified 01/10/21 13:59) Home Medications: Levothyroxine Sodium [Synthroid] 112 mcg PO DAILY 04/18/12 [History] Zolpidem Tartrate 10 mg [Ambien 10 MG] 5 mg PO HS 04/18/12 [History] Duloxetine HCl 30 mg [Cymbalta 30 MG Capsule] 60 mg PO DAILY 01/02/18 [History] Omeprazole 20 MG [Prilosec 20 mg] 20 mg HS 01/02/18 [History] Pravastatin Sodium 20 mg DAILY 01/02/18 [History] Carvedilol [Coreg] 25 mg PO BID 01/10/21 [History] Isosorbide Mononitrate 60 mg [Imdur 60MG] 60 mg PO DAILY 01/10/21 [History] Montelukast Sodium 10 mg [Singulair 10 MG] 10 mg PO HS 01/10/21 [History] Oxybutynin Chloride Xl 5 mg [Ditropan XL 5 MG] 5 mg PO BID 01/10/21 [History] Apixaban [Eliquis] 5 mg PO BID 07/26/21 [History] Budesonide/Formoterol Fumarate [Budesonide-Formoterol 160-4.5] 2 puff IH BID 07/26/21 [History] Sacubitril/Valsartan [Entresto 97 mg-103 mg Tablet] 1 tab PO BID 07/26/21 [History] Hx Tetanus, Diphtheria Vaccination/Date Given: Yes Hx Influenza Vaccination/Date Given: Yes Hx Pneumococcal Vaccination/Date Given: Yes Immunizations Up to Date: Yes Travel Risk - International Travel Have you traveled outside of the country in past 3 weeks: No - Coronavirus Screening Are you exhibiting any of the following symptoms?: No Close contact with a COVID-19 positive Pt in past 14-21 Days: No - Vaccine Status Have you recieved a Covid-19 vaccination: Yes [employer] Work[employer]: Moderna - Vaccination Dates Date of 2cond Vaccination (if applicable): 11/23 - Review of Systems Constitutional: No Symptoms, Lethargy, Malaise, Weakness Eyes: No Symptoms Ears, Nose, & Throat: No Symptoms Respiratory: No Symptoms, Cough, Dyspnea, Dyspnea on Exertion (MAK) Cardiac: No Symptoms Abdominal/Gastrointestinal: No Symptoms Genitourinary Symptoms: No Symptoms Musculoskeletal: No Symptoms Skin: No Symptoms Neurological: No Symptoms Psychological: No Symptoms Endocrine: No Symptoms Hematologic/Lymphatic: No Symptoms Immunological/Allergic: No Symptoms - Past Medical History Pertinent Past Medical History: Yes Neurological History: No Pertinent History ENT History: Cataracts Cardiac History: Arrhythmia, High Cholesterol, Hypertension, Other Respiratory History: COPD Endocrine Medical History: Hypothyroidism Musculoskeletal History: Osteoarthritis, Other GI Medical History: GERD History: No Pertinent History Psycho-Social History: Anxiety Female Reproductive Disorders: No Pertinent History Other Medical History: HX OF ELBOW SURGERY FOR RADIAL TUNNEL RIGHT 1983. PATIENT SCHEDULED FOR PACEMAKER/DEFIBRILLATOR 08/16/19. GERD, ANXIETY, POLYMYALGIA - Past Surgical History Past Surgical History: Yes Neuro Surgical History: No Pertinent History Cardiac: No Pertinent History, Internal Defibrillator, Pacemaker Respiratory: No Pertinent History Gastrointestinal: Appendectomy, Cholecystectomy Genitourinary: No Pertinent History Musculoskeletal: Other Female Surgical History: No Pertinent History Other Surgical History: breast biopsy. radial tunnel surgery on right arm - Social History Smoking Status: Never smoker Exposure to second hand smoke: Yes Drug Use: none Patient Lives Alone: No Significant Family History: no pertinent family hx - Female History Hx Now: No - Nursing Vital Signs Nursing Vital Signs: Initial Vital Signs Temperature 97.2 F 08/03/21 16:08 Pulse Rate 54 L 08/03/21 16:08 Respiratory Rate 22 08/03/21 16:08 Blood Pressure 146/71 08/03/21 16:08 O2 Sat by Pulse Oximetry 97 08/03/21 16:08 Pain Scale Pain Intensity 2 Mildly rosa/hypertensive - Physical Exam General Appearance: no apparent distress Eye Exam: PERRL/EOMI, eyes nml inspection Ears, Nose, Throat Exam: normal ENT inspection, TMs normal, pharynx normal, moist mucous membranes, tonsillar exudate Neck Exam: normal inspection, non-tender, supple, No meningismus, No mass, No Brudzinski, No Kernig's Respiratory Exam: airway intact, crackles/rales (Rales Bases) Cardiovascular Exam: bradycardia, No murmur Gastrointestinal/Abdomen Exam: soft, normal bowel sounds, No tenderness Back Exam: normal inspection, normal range of motion, No CVA tenderness, No vertebral tenderness Extremity Exam: normal inspection, normal range of motion Neurologic Exam: alert, oriented x 3, cooperative, adjunct instructor II-XII nml as tested, normal mood/affect, sensation nml Skin Exam: normal color, warm, dry Lymphatic Exam: No adenopathy SpO2 Interpretation: normal SpO2: 97 O2 Delivery: Room Air - Course Nursing assessment & vital signs reviewed: Yes EKG Interpreted by Me: RATE (Rate 58/paced/No acute ST changes/Prolonged QT-QTc) - CT Exams Chest CT Interpretation: Discussed w/radiologist (CT chest neg) Ordered Tests: Active Orders 24 hr Category Date Time Status EKG-ER Only STAT Care 08/03/21 16:33 Completed CHEST 1 VIEW (PORTABLE) Stat Exams 08/03/21 16:33 Completed CHEST WITHOUT CONTRAST [CT] Stat Exams 08/03/21 18:08 Taken CBC W DIFF Stat Lab 08/03/21 16:48 Completed CMP Stat Lab 08/03/21 16:48 Completed Lactic Acid Stat Lab 08/03/21 16:45 Completed Manual Differential NC Stat Lab 08/03/21 16:48 Completed NT PRO BNP Stat Lab 08/03/21 16:48 Completed PROTIME WITH INR Stat Lab 08/03/21 16:48 Completed PTT Stat Lab 08/03/21 16:48 Completed TROPONIN Q3H Lab 08/03/21 16:48 Completed TROPONIN Q3H Lab 08/03/21 20:05 Completed UA W/RFX UR CULTURE Stat Lab 08/03/21 17:16 Completed Medication Summary Discontinued Medications Generic Name Dose Route Start Last Admin Trade Name Tejasq PRN Reason Stop Dose Admin Sodium Chloride 500 mls @ 500 mls/hr 08/03/21 17:55 08/03/21 20:05 Sodium Chloride 0.9% 500 Ml IV 08/03/21 18:54 Infused .Q1H ONE Infusion Sodium Chloride Confirm 08/03/21 17:59 Sodium Chloride 0.9% 500 Ml Administered 08/03/21 18:00 Dose 500 mls @ ud IV .STK-MED ONE Sodium Chloride Confirm 08/03/21 18:07 Sodium Chloride 0.9% 500 Ml Administered 08/03/21 18:08 Dose 500 mls @ ud IV .STK-MED ONE Lab/Rad Data: Laboratory Result Diagrams 08/03/21 16:48 08/03/21 16:48 Laboratory Results 08/03/21 08/03/21 08/03/21 Range/Units 20:05 19:25 17:16 WBC (4.0-10.5) K/mm3 RBC (4.1-5.4) M/mm3 Hgb (12.0-16.0) gm/dl Hct (35-47) % MCV (78-100) fl MCH (26-32) pg MCHC (32-36) g/dl RDW (11.5-14.0) % Plt Count (150-450) K/mm3 MPV (7.5-11.0) fl Segmented Neutrophils (36.0-66.0) % Lymphocytes (Manual) (24-44) % Monocytes (Manual) (0.0-12.0) % Eosinophils (Manual) (0.00-3.0) % Platelet Estimate (NORMAL) RBC Morphology PT (9.4-12.5) SECONDS INR (0.8-3.0) APTT (25.1-36.5) SECONDS Sodium (137-145) mmol/L Potassium (3.5-5.1) mmol/L Chloride (98-107) mmol/L Carbon Dioxide (22-30) mmol/L Anion Gap (5-15) MEQ/L BUN (7-17) mg/dL Creatinine (0.52-1.04) mg/dL Estimated GFR ML/MIN Glucose (74-106) mg/dL Lactic Acid (0.4-2.0) Calcium (8.4-10.2) mg/dL Total Bilirubin (0.2-1.3) mg/dL AST (14-36) U/L ALT (0-35) U/L Alkaline Phosphatase (38-126) U/L Troponin I < 0.012 (0.000-0.034) ng/mL NT-Pro-B Natriuret Pep (0-1800) pg/mL Serum Total Protein (6.3-8.2) g/dL Albumin (3.5-5.0) g/dL Urine Color YELLOW (YELLOW) Urine Appearance CLEAR (CLEAR) Urine pH 6.0 (5-6) Ur Specific Phelan 1.021 (1.005-1.025) Urine Protein NEGATIVE (Negative) Urine Ketones NEGATIVE (NEGATIVE) Urine Blood NEGATIVE (0-5) Arnoldo/ul Urine Nitrite NEGATIVE (NEGATIVE) Urine Bilirubin NEGATIVE (NEGATIVE) Urine Urobilinogen 2 (0-1) mg/dL Ur Leukocyte Esterase NEGATIVE (NEGATIVE) Urine WBC (Auto) 3-5 (0-5) /HPF Urine RBC (Auto) NONE (0-2) /HPF U Epithel Cells (Auto) NONE (FEW) /HPF Urine Bacteria (Auto) NONE (NEGATIVE) /HPF Urine Mucus (Auto) SLIGHT (NEGATIVE) /HPF Urine Culture Reflexed NO (NO) Urine Glucose NEGATIVE (NEGATIVE) mg/dL Influenza Type A Ag NEGATIVE (NEGATIVE) Influenza Type B Ag NEGATIVE (NEGATIVE) RSV (PCR) NEGATIVE (Negative) SARS-CoV-2 (PCR) NEGATIVE (NEGATIVE) 08/03/21 08/03/21 08/03/21 Range/Units 16:48 16:48 16:48 WBC (4.0-10.5) K/mm3 RBC (4.1-5.4) M/mm3 Hgb (12.0-16.0) gm/dl Hct (35-47) % MCV (78-100) fl MCH (26-32) pg MCHC (32-36) g/dl RDW (11.5-14.0) % Plt Count (150-450) K/mm3 MPV (7.5-11.0) fl Segmented Neutrophils (36.0-66.0) % Lymphocytes (Manual) (24-44) % Monocytes (Manual) (0.0-12.0) % Eosinophils (Manual) (0.00-3.0) % Platelet Estimate (NORMAL) RBC Morphology PT 16.2 H (9.4-12.5) SECONDS INR 1.37 (0.8-3.0) APTT 25.0 L (25.1-36.5) SECONDS Sodium 136 L (137-145) mmol/L Potassium 3.4 L (3.5-5.1) mmol/L Chloride 100 (98-107) mmol/L Carbon Dioxide 27 (22-30) mmol/L Anion Gap 12.4 (5-15) MEQ/L BUN 24 H (7-17) mg/dL Creatinine 0.61 (0.52-1.04) mg/dL Estimated GFR > 60.0 ML/MIN Glucose 210 H (74-106) mg/dL Lactic Acid (0.4-2.0) Calcium 8.4 (8.4-10.2) mg/dL Total Bilirubin 0.60 (0.2-1.3) mg/dL AST 83 H (14-36) U/L ALT 103 H (0-35) U/L Alkaline Phosphatase 59 (38-126) U/L Troponin I < 0.012 (0.000-0.034) ng/mL NT-Pro-B Natriuret Pep 698 (0-1800) pg/mL Serum Total Protein 5.6 L (6.3-8.2) g/dL Albumin 3.3 L (3.5-5.0) g/dL Urine Color (YELLOW) Urine Appearance (CLEAR) Urine pH (5-6) Ur Specific Phelan (1.005-1.025) Urine Protein (Negative) Urine Ketones (NEGATIVE) Urine Blood (0-5) Arnoldo/ul Urine Nitrite (NEGATIVE) Urine Bilirubin (NEGATIVE) Urine Urobilinogen (0-1) mg/dL Ur Leukocyte Esterase (NEGATIVE) Urine WBC (Auto) (0-5) /HPF Urine RBC (Auto) (0-2) /HPF U Epithel Cells (Auto) (FEW) /HPF Urine Bacteria (Auto) (NEGATIVE) /HPF Urine Mucus (Auto) (NEGATIVE) /HPF Urine Culture Reflexed (NO) Urine Glucose (NEGATIVE) mg/dL Influenza Type A Ag (NEGATIVE) Influenza Type B Ag (NEGATIVE) RSV (PCR) (Negative) SARS-CoV-2 (PCR) (NEGATIVE) 08/03/21 08/03/21 Range/Units 16:48 16:45 WBC 8.7 (4.0-10.5) K/mm3 RBC 4.27 (4.1-5.4) M/mm3 Hgb 12.3 (12.0-16.0) gm/dl Hct 38.3 (35-47) % MCV 89.7 (78-100) fl MCH 28.8 (26-32) pg MCHC 32.1 (32-36) g/dl RDW 14.9 H (11.5-14.0) % Plt Count 206 (150-450) K/mm3 MPV 9.6 (7.5-11.0) fl Segmented Neutrophils 85 H (36.0-66.0) % Lymphocytes (Manual) 11 L (24-44) % Monocytes (Manual) 3 (0.0-12.0) % Eosinophils (Manual) 1 (0.00-3.0) % Platelet Estimate NORMAL (NORMAL) RBC Morphology NORMAL PT (9.4-12.5) SECONDS INR (0.8-3.0) APTT (25.1-36.5) SECONDS Sodium (137-145) mmol/L Potassium (3.5-5.1) mmol/L Chloride (98-107) mmol/L Carbon Dioxide (22-30) mmol/L Anion Gap (5-15) MEQ/L BUN (7-17) mg/dL Creatinine (0.52-1.04) mg/dL Estimated GFR ML/MIN Glucose (74-106) mg/dL Lactic Acid 3.0 H (0.4-2.0) Calcium (8.4-10.2) mg/dL Total Bilirubin (0.2-1.3) mg/dL AST (14-36) U/L ALT (0-35) U/L Alkaline Phosphatase (38-126) U/L Troponin I (0.000-0.034) ng/mL NT-Pro-B Natriuret Pep (0-1800) pg/mL Serum Total Protein (6.3-8.2) g/dL Albumin (3.5-5.0) g/dL Urine Color (YELLOW) Urine Appearance (CLEAR) Urine pH (5-6) Ur Specific Phelan (1.005-1.025) Urine Protein (Negative) Urine Ketones (NEGATIVE) Urine Blood (0-5) Arnoldo/ul Urine Nitrite (NEGATIVE) Urine Bilirubin (NEGATIVE) Urine Urobilinogen (0-1) mg/dL Ur Leukocyte Esterase (NEGATIVE) Urine WBC (Auto) (0-5) /HPF Urine RBC (Auto) (0-2) /HPF U Epithel Cells (Auto) (FEW) /HPF Urine Bacteria (Auto) (NEGATIVE) /HPF Urine Mucus (Auto) (NEGATIVE) /HPF Urine Culture Reflexed (NO) Urine Glucose (NEGATIVE) mg/dL Influenza Type A Ag (NEGATIVE) Influenza Type B Ag (NEGATIVE) RSV (PCR) (Negative) SARS-CoV-2 (PCR) (NEGATIVE) - Progress Progress: improved Progress Note: 08/03/21 20:13 500ml IV NS bolus 08/03/21 23:42 Dr. Adkins called and wanted pt checked for CV19. Pt neg during recent wk stay. Discussed with : Mary Counseled pt/family regarding: lab results, diagnosis, need for follow-up, rad results - Departure Departure Disposition: Home Clinical Impression: Bronchitis Condition: Stable Critical Care Time: No Referrals: MONIKA SINGLETON, MONIE [Primary Care Provider] - Follow up/PCP as directed Instructions: Acute Bronchitis, Adult (DC) Additional Instructions: Follow up with your family MD in 1-2 days Start doxycycline twice a day Return to ER as needed Prescriptions: Doxycycline Monohydrate 100 mg PO BID #[id number]
[2021-08-03 16:55] LABS: Hematocrit 38.3 % (35-47); Hemoglobin 12.3 gm/dl (12.0-16.0); Mean Cell Volume 89.7 fl (78-100); Mean Corpuscular Hemoglobin 28.8 pg (26-32); Mean Corpuscular Hgb Concent. 32.1 g/dl (32-36); Mean Platelet Volume 9.6 fl (7.5-11.0); Platelet Count 206 K/mm3 (150-450); Red Blood Count 4.27 M/mm3 (4.1-5.4); Red Cell Distribution Width 14.9 % (11.5-14.0); White Blood Count 8.7 K/mm3 (4.0-10.5)
--- NOTE | 2021-08-03 16:57 | XRAY ---
Indication: Cough. Comparison: August 01, 2021. Portable chest continues to remain unchanged again demonstrating scattered calcified granulomas, left AICD, and right hemidiaphragm elevation. Remaining heart and lungs unremarkable. No new/acute abnormalities.
[2021-08-03 17:20] LABS: INR 1.37 (0.8-3.0); PROTIME 16.2 SECONDS (9.4-12.5)
[2021-08-03 17:33] LABS: ALBUMIN 3.3 g/dL (3.5-5.0); ALKALINE PHOSPHATASE 59 U/L (38-126); ANION GAP 12.4 MEQ/L (5-15); BLOOD UREA NITROGEN 24 mg/dL (7-17); CHLORIDE 100 mmol/L (98-107); Calcium 8.4 mg/dL (8.4-10.2); Carbon Dioxide 27 mmol/L (22-30); Creatinine 1 0.61 mg/dL (0.52-1.04); EST GLOMERULAR FILTRATION RATE > 60.0 ML/MIN; Glucose 210 mg/dL (74-106); NT PRO BNP 698 pg/mL (0-1800); Potassium 3.4 mmol/L (3.5-5.1); SGOT/AST 83 U/L (14-36); SGPT/ALT 103 U/L (0-35); SODIUM 136 mmol/L (137-145); Total Protein 5.6 g/dL (6.3-8.2)
[2021-08-03 17:37] LABS: Appearance CLEAR (CLEAR); Bilirubin NEGATIVE (NEGATIVE); Blood NEGATIVE Ery/ul (0-5); Glucose NEGATIVE (NEGATIVE); Ketones NEGATIVE (NEGATIVE); Leukocyte Esterase NEGATIVE (NEGATIVE); Mucus SLIGHT /HPF (NEGATIVE); Nitrite NEGATIVE (NEGATIVE); Protein,Urine Dip NEGATIVE (Negative); Specific Gravity 1.021 (1.005-1.025); Urobilinogen 2 mg/dL (0-1)
[2021-08-03] MEDS ORDERED: Sodium Chloride 0.9% 500 ML 500 ML IV ONE ×2 (17:55→18:07)
[2021-08-03] MEDS ORDERED: Sodium Chloride 0.9% 500 ML 0 ML IV ONE (17:59)
[2021-08-03 18:55] VITALS: BP 147/64; PULSE 60
[2021-08-03 19:55] VITALS: O2SAT 97
[2021-08-03 20:10] LABS: INFLUENZA A NEGATIVE (NEGATIVE); INFLUENZA B NEGATIVE (NEGATIVE); RESPIRATORY SYNCTIAL VIRUS NEGATIVE (Negative); SARS-CoV-2 Xpert Express NEGATIVE (NEGATIVE)
[2021-08-03 23:23] LABS: Eosinophil 1 % (0.00-3.0); Lymphocytes 11 % (24-44); Monocyte 3 % (0.0-12.0); Neutrophils 85 % (36.0-66.0); Platelet Estimate NORMAL (NORMAL); Total Cells Counted 100
--- NOTE | 2021-08-04 08:45 | XRAY ---
Indication: Cough. Weakness. Multiple contiguous axial images obtained through the chest without contrast. Comparison: None Lungs demonstrates multiple tiny scattered calcified granulomas bilaterally and minimal bibasilar subsegmental atelectasis/scarring. No suspicious pulmonary mass, infiltrate, or effusion. Mild right hemidiaphragm elevation. Heart borderline enlarged with left AICD. Aorta mildly arteriosclerotic without aneurysm. [place] mediastinal and bilateral hilar calcified nodes. Small hiatal hernia. Bony thorax intact. Limited upper abdomen demonstrates tiny hepatic/splenic calcified granulomas. Impression: 1. Right hemidiaphragm elevation, borderline cardiomegaly, small hiatal hernia, and old granulomatous disease. 2. Remaining CT chest without contrast exam is negative.
== END 2021-08-03 20:26 | disposition home or self-care (01) ==
LOC: ED 15:57
DX: J40 Bronchitis, not specified as acute or chronic (principal); R05.9 Cough, unspecified; R06.02 Shortness of breath; E78.5 Hyperlipidemia, unspecified; I10 Essential (primary) hypertension; J44.9 Chronic obstructive pulmonary disease, unspecified; Z79.01 Long term (current) use of anticoagulants
CPT/HCPCS: 0241U; 36000; 36415; 71045; 71250; 80053; 81001; 83605; 83880; 84484; 85025; 85610; 85730; 93005; 96360; 99284

== ENCOUNTER 2022-10-06 16:05 | Observation (INO) | payer MEDICARE, OTHER ==
[2022-10-06] MEDS ORDERED: Sodium Chloride 0.9% 1000 ML 1,000 ML IV STA (16:22)
--- NOTE | 2022-10-06 16:42 | ERPHSYRPT ---
- History of Present Illness Time Seen by Provider: 10/06/22 16:36 Source: patient, family Physician History: Patient is an 82-year-old white female who presents with a complaint of fainting. On further questioning she does not lose consciousness its just that when she stands she her vision gets dark and she falls to the floor from weakness. She did hit her head at one point and she also complained of some pain in her neck she also hit some furniture with the back of her left arm and posterior chest. She says that after her vision blur she always falls backwards she denies any true vertigo. She says she became ill on Tuesday when she thought she was getting a cold and she has gotten progressively worse but today was the first day she had fallen. Timing/Duration: day(s) (4), worse Associated Symptoms: syncope, weakness Allergies/Adverse Reactions: No Known Drug Allergies Allergy (Verified 10/06/22 17:03) Home Medications: Levothyroxine Sodium [Synthroid] 112 mcg PO DAILY 04/18/12 [History] Zolpidem Tartrate 10 mg [Ambien 10 MG] 5 mg PO HS 04/18/12 [History] Duloxetine HCl 30 mg [Cymbalta 30 MG Capsule] 60 mg PO DAILY 01/02/18 [History] Omeprazole 20 MG [Prilosec 20 mg] 20 mg HS 01/02/18 [History] Carvedilol [Coreg] 25 mg PO BID 01/10/21 [History] Montelukast Sodium 10 mg [Singulair 10 MG] 10 mg PO HS 01/10/21 [History] Oxybutynin Chloride Xl 5 mg [Ditropan XL 5 MG] 5 mg PO BID 01/10/21 [History] Apixaban [Eliquis] 5 mg PO BID 07/26/21 [History] Sacubitril/Valsartan [Entresto 97 mg-103 mg Tablet] 1 tab PO BID 07/26/21 [History] Empagliflozin [Jardiance] 10 mg PO DAILY 10/06/22 [History] Ezetimibe 10 mg [Zetia 10 MG] 10 mg PO DAILY 10/06/22 [History] Spironolactone 25 mg [Aldactone 25 MG] 12.5 mg PO DAILY 10/06/22 [History] Hx Tetanus, Diphtheria Vaccination/Date Given: Yes Hx Influenza Vaccination/Date Given: Yes Hx Pneumococcal Vaccination/Date Given: Yes Travel Risk - Vaccine Status Have you recieved a Covid-19 vaccination: Yes 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: Moderna - Vaccination Dates Date of 2cond Vaccination (if applicable): 11/23 - Review of Systems Constitutional: Weakness, No Fever, No Chills Eyes: No Symptoms Ears, Nose, & Throat: No Symptoms, Nose Congestion Respiratory: Cough, No Dyspnea Cardiac: No Chest Pain, No Edema, No Syncope Abdominal/Gastrointestinal: No Abdominal Pain, No Nausea, No Vomiting, No Diarrhea Genitourinary Symptoms: No Dysuria Musculoskeletal: Arthralgias, Myalgias, No Back Pain, No Neck Pain Skin: No Rash Neurological: Gait Changes, Headache, No Dizziness, No Focal Weakness, No Sensory Changes, No Vertigo Psychological: No Symptoms Endocrine: No Symptoms All Other Systems: Reviewed and Negative - Past Medical History Pertinent Past Medical History: Yes Neurological History: No Pertinent History ENT History: Cataracts Cardiac History: Arrhythmia, High Cholesterol, Hypertension, Other Respiratory History: COPD Endocrine Medical History: Hypothyroidism Musculoskeletal History: Osteoarthritis, Other GI Medical History: GERD History: No Pertinent History Psycho-Social History: Anxiety Female Reproductive Disorders: No Pertinent History Other Medical History: HX OF ELBOW SURGERY FOR RADIAL TUNNEL RIGHT 1983. PATIENT SCHEDULED FOR PACEMAKER/DEFIBRILLATOR 08/16/19. GERD, ANXIETY, POLYMYALGIA - Past Surgical History Past Surgical History: Yes Neuro Surgical History: No Pertinent History Cardiac: No Pertinent History, Internal Defibrillator, Pacemaker Respiratory: No Pertinent History Gastrointestinal: Appendectomy, Cholecystectomy Genitourinary: No Pertinent History Musculoskeletal: Other Female Surgical History: No Pertinent History Other Surgical History: breast biopsy. radial tunnel surgery on right arm - Social History Smoking Status: Never smoker Exposure to second hand smoke: Yes Drug Use: none Patient Lives Alone: No Significant Family History: no pertinent family hx - Nursing Vital Signs Nursing Vital Signs: Initial Vital Signs Temperature 96.7 F 10/06/22 16:08 Pulse Rate 79 10/06/22 16:08 Respiratory Rate 21 10/06/22 16:08 Blood Pressure 134/72 10/06/22 16:08 O2 Sat by Pulse Oximetry 97 10/06/22 16:08 Pain Scale Pain Intensity 0 - Physical Exam General Appearance: mild distress, alert Eye Exam: PERRL/EOMI, eyes nml inspection Ears, Nose, Throat Exam: normal ENT inspection, TMs normal, pharynx normal, moist mucous membranes Neck Exam: normal inspection, non-tender, supple, full range of motion Respiratory Exam: normal breath sounds, lungs clear, No respiratory distress Cardiovascular Exam: regular rate/rhythm, normal heart sounds, normal peripheral pulses Gastrointestinal/Abdomen Exam: soft, normal bowel sounds, No tenderness, No mass Back Exam: normal inspection, normal range of motion, No CVA tenderness, No vertebral tenderness Extremity Exam: normal inspection, normal range of motion, pelvis stable Neurologic Exam: alert, oriented x 3, cooperative, normal mood/affect, nml cerebellar function, nml station & gait, sensation nml, No motor deficits Skin Exam: normal color, warm, dry, No rash Lymphatic Exam: No adenopathy SpO2 Interpretation: normal SpO2: 95 O2 Delivery: Room Air - Course Nursing assessment & vital signs reviewed: Yes EKG Interpreted by Me: RATE (74), Other (Patient has an atrial sensed ventr icular paced rhythm no further interpretation possible) - Radiology Exams Chest X-ray Interpretation: Interpreted by me - CT Exams Head CT Interpretation: Negative Cervical Spine CT Interpretation: Negative, Other (Degenerative changes) Ordered Tests: Active Orders 24 hr Category Date Time Status EKG-ER Only STAT Care 10/06/22 16:22 Active IV Insertion STAT Care 10/06/22 16:22 Active CERVICAL SPINE WO CONTRAST [CT] Stat Exams 10/06/22 16:23 Taken CHEST 1 VIEW (PORTABLE) Stat Exams 10/06/22 16:22 Taken HEAD WITHOUT CONTRAST [CT] Stat Exams 10/06/22 16:23 Taken BLOOD CULTURE Stat Lab 10/06/22 16:55 Received CBC W DIFF Stat Lab 10/06/22 16:50 Completed CMP Stat Lab 10/06/22 16:50 Completed TROPONIN Q4H Lab 10/06/22 16:50 Completed TROPONIN Q4H Lab 10/06/22 20:30 Ordered UA W/RFX UR CULTURE Stat Lab 10/06/22 16:22 Ordered Medication Summary Discontinued Medications Generic Name Dose Route Start Last Admin Trade Name Freq PRN Reason Stop Dose Admin Sodium Chloride 1,000 mls @ 999 mls/hr 10/06/22 16:22 10/06/22 17:52 Sodium Chloride 0.9% 1000 Ml IV 10/06/22 17:22 999 mls/hr .Q1H1M STA Administration Sodium Chloride Confirm 10/06/22 17:51 Sodium Chloride 0.9% 1000 Ml Administered 10/06/22 17:52 Dose 1,000 mls @ ud .ROUTE .STK-MED ONE Lab/Rad Data: Laboratory Result Diagrams 10/06/22 16:50 10/06/22 16:50 Laboratory Results 10/06/22 10/06/22 10/06/22 Range/Units 16:55 16:50 16:50 WBC (4.0-10.5) x10^3/uL RBC (4.1-5.4) x10^6/uL Hgb (12.0-16.0) g/dL Hct (35-47) % MCV (78-100) fL MCH (26-32) pg MCHC (32-36) g/dL RDW (11.5-14.0) % Plt Count (150-450) x10^3/uL MPV (7.5-11.0) fL Gran % (36.0-66.0) % Immature Gran % (Auto) (0.00-0.4) % Nucleat RBC Rel Count (0.00-0.1) % Eos # (Auto) (0-0.5) x10^3/uL Immature Gran # (Auto) (0.00-0.03) x10^3u/L Absolute Lymphs (auto) (1.0-4.6) x10^3/uL Absolute Monos (auto) (0.0-1.3) x10^3/uL Absolute Nucleated RBC (0.00-0.01) x10^3u/L Lymphocytes % (24.0-44.0) % Monocytes % (0.0-12.0) % Eosinophils % (0.00-5.0) % Basophils % (0.0-0.4) % Absolute Granulocytes (1.4-6.9) x10^3/uL Basophils # (0-0.4) x10^3/uL Sodium 136 L (137-145) mmol/L Potassium 3.6 (3.5-5.1) mmol/L Chloride 106 (98-107) mmol/L Carbon Dioxide 23 (22-30) mmol/L Anion Gap 11.5 (5-15) MEQ/L BUN 15 (7-17) mg/dL Creatinine 0.67 (0.52-1.04) mg/dL Estimated GFR > 60.0 ML/MIN Glucose 140 H (74-106) mg/dL Calcium 9.1 (8.4-10.2) mg/dL Total Bilirubin 1.20 (0.2-1.3) mg/dL AST 48 H (14-36) U/L ALT 36 H (0-35) U/L Alkaline Phosphatase 118 (38-126) U/L Troponin I < 0.012 (0.000-0.034) ng/mL Serum Total Protein 6.9 (6.3-8.2) g/dL Albumin 4.2 (3.5-5.0) g/dL Influenza Type A Ag NEGATIVE (NEGATIVE) Influenza Type B Ag NEGATIVE (NEGATIVE) RSV (PCR) NEGATIVE (Negative) SARS-CoV-2 (PCR) POSITIVE A (NEGATIVE) 10/06/22 Range/Units 16:50 WBC 5.7 (4.0-10.5) x10^3/uL RBC 4.46 (4.1-5.4) x10^6/uL Hgb 13.4 (12.0-16.0) g/dL Hct 40.7 (35-47) % MCV 91.3 (78-100) fL MCH 30.0 (26-32) pg MCHC 32.9 (32-36) g/dL RDW 13.8 (11.5-14.0) % Plt Count 129 L (150-450) x10^3/uL MPV 10.2 (7.5-11.0) fL Gran % 70.0 H (36.0-66.0) % Immature Gran % (Auto) 0.4 (0.00-0.4) % Nucleat RBC Rel Count 0.0 (0.00-0.1) % Eos # (Auto) 0.06 (0-0.5) x10^3/uL Immature Gran # (Auto) 0.02 (0.00-0.03) x10^3u/L Absolute Lymphs (auto) 1.08 (1.0-4.6) x10^3/uL Absolute Monos (auto) 0.51 (0.0-1.3) x10^3/uL Absolute Nucleated RBC 0.00 (0.00-0.01) x10^3u/L Lymphocytes % 19.0 L (24.0-44.0) % Monocytes % 9.0 (0.0-12.0) % Eosinophils % 1.1 (0.00-5.0) % Basophils % 0.5 (0.0-0.4) % Absolute Granulocytes 3.99 (1.4-6.9) x10^3/uL Basophils # 0.03 (0-0.4) x10^3/uL Sodium (137-145) mmol/L Potassium (3.5-5.1) mmol/L Chloride (98-107) mmol/L Carbon Dioxide (22-30) mmol/L Anion Gap (5-15) MEQ/L BUN (7-17) mg/dL Creatinine (0.52-1.04) mg/dL Estimated GFR ML/MIN Glucose (74-106) mg/dL Calcium (8.4-10.2) mg/dL Total Bilirubin (0.2-1.3) mg/dL AST (14-36) U/L ALT (0-35) U/L Alkaline Phosphatase (38-126) U/L Troponin I (0.000-0.034) ng/mL Serum Total Protein (6.3-8.2) g/dL Albumin (3.5-5.0) g/dL Influenza Type A Ag (NEGATIVE) Influenza Type B Ag (NEGATIVE) RSV (PCR) (Negative) SARS-CoV-2 (PCR) (NEGATIVE) - Progress Progress: unchanged Discussed with : Jaden - Departure Departure Disposition: Observation Clinical Impression: COVID Condition: Fair Critical Care Time: No Referrals: CLARISSA ZARATE MD [Primary Care Provider] - Follow up/PCP as directed
[2022-10-06 17:05] LABS: Absolute Neutrophil Ct (ANC) 3.99 x10^3/uL (1.4-6.9); BASOPHIL % 0.5 % (0.0-0.4); Basophil (Absolute #) 0.03 x10^3/uL (0-0.4); Eosinophil % 1.1 % (0.00-5.0); Eosinophil (Absolute #) 0.06 x10^3/uL (0-0.5); Hematocrit 40.7 % (35-47); Hemoglobin 13.4 g/dL (12.0-16.0); IMMATURE GRAN # 0.02 x10^3u/L (0.00-0.03); IMMATURE GRAN % 0.4 % (0.00-0.4); Lymphocyte (Absolute #) 1.08 x10^3/uL (1.0-4.6); Mean Cell Volume 91.3 fL (78-100); Mean Corpuscular Hgb Concent. 32.9 g/dL (32-36); Mean Platelet Volume 10.2 fL (7.5-11.0); Monocyte (Absolute #) 0.51 x10^3/uL (0.0-1.3); Platelet Count 129 x10^3/uL (150-450); Red Blood Count 4.46 x10^6/uL (4.1-5.4); Red Cell Distribution Width 13.8 % (11.5-14.0); White Blood Count 5.7 x10^3/uL (4.0-10.5)
[2022-10-06 17:20] LABS: ALBUMIN 4.2 g/dL (3.5-5.0); ALKALINE PHOSPHATASE 118 U/L (38-126); ANION GAP 11.5 MEQ/L (5-15); BLOOD UREA NITROGEN 15 mg/dL (7-17); CHLORIDE 106 mmol/L (98-107); Calcium 9.1 mg/dL (8.4-10.2); Carbon Dioxide 23 mmol/L (22-30); Creatinine 1 0.67 mg/dL (0.52-1.04); EST GLOMERULAR FILTRATION RATE > 60.0 ML/MIN; Glucose 140 mg/dL (74-106); Potassium 3.6 mmol/L (3.5-5.1); SGOT/AST 48 U/L (14-36); SGPT/ALT 36 U/L (0-35); SODIUM 136 mmol/L (137-145); Total Protein 6.9 g/dL (6.3-8.2)
[2022-10-06] MEDS ORDERED: Sodium Chloride 0.9% 1000 ML 1,000 ML ONE ×2 (17:51→22:09)
[2022-10-06 18:06] LABS: INFLUENZA A NEGATIVE (NEGATIVE); INFLUENZA B NEGATIVE (NEGATIVE); RESPIRATORY SYNCTIAL VIRUS NEGATIVE (Negative)
[2022-10-06 18:10] LABS: SARS-CoV-2 Xpert Express POSITIVE (NEGATIVE)
[2022-10-06 19:56] LABS: ALBUMIN 3.7 g/dL (3.5-5.0); ALKALINE PHOSPHATASE 104 U/L (38-126); ANION GAP 10.3 MEQ/L (5-15); BLOOD UREA NITROGEN 16 mg/dL (7-17); CHLORIDE 109 mmol/L (98-107); Calcium 8.6 mg/dL (8.4-10.2); Carbon Dioxide 24 mmol/L (22-30); EST GLOMERULAR FILTRATION RATE > 60.0 ML/MIN; Glucose 100 mg/dL (74-106); Potassium 3.8 mmol/L (3.5-5.1); SGOT/AST 37 U/L (14-36); SGPT/ALT 32 U/L (0-35); SODIUM 139 mmol/L (137-145); Total Protein 6.1 g/dL (6.3-8.2)
[2022-10-06] MEDS ORDERED: TYLENOL EXTRA STRENGTH 500 MG PO PRN (22:19)
[2022-10-06] MEDS ORDERED: FEVERALL 650 MG PR PRN (22:19)
[2022-10-06] MEDS ORDERED: Zofran 4 MG/2 ML VIAL IV PRN (22:20)
[2022-10-06] MEDS ORDERED: Sodium Chloride 0.9% 1000 ML 1,000 ML IV SCH (22:30)
[2022-10-06] MEDS ORDERED: REMDESIVIR 200 MG in Sodium Chloride 0.9% 250 ML 250 ML IV ONE (23:00)
[2022-10-06] MEDS: VENTOLIN COMMON CANISTER IH SCH (23:10)
[2022-10-07] MEDS ORDERED: Sodium Chloride 0.9% 250 ML 250 ML IV ONE (00:48)
[2022-10-07] MEDS ORDERED: REMDESIVIR IV ONE (00:48)
[2022-10-07] MEDS: Ambien 5 MG Tablet PO SCH ×2 (01:03→23:23)
[2022-10-07] MEDS: Decadron 4 MG INJ IV SCH ×2 (01:03→09:25)
[2022-10-07] MEDS: ENTRESTO 49 MG-51 MG TABLET PO SCH ×3 (01:03→23:21)
[2022-10-07] MEDS: Protonix 40MG Tablet PO SCH ×2 (01:03→23:22)
[2022-10-07] MEDS: ELIQUIS 2.5 MG TABLET PO SCH ×3 (01:03→23:23)
[2022-10-07] MEDS: Ditropan XL 5 MG PO SCH ×3 (01:04→23:22)
[2022-10-07] MEDS: Singulair 10 MG PO SCH ×2 (01:04→23:23)
[2022-10-07] MEDS: CLARITIN 10 MG PO SCH ×2 (01:04→23:23)
[2022-10-07] MEDS: COREG 12.5 MG PO SCH ×3 (01:12→23:22)
[2022-10-07 04:08] LABS: Appearance Clear (Clear); Bacteria None Seen /HPF (None Seen); Bilirubin Negative (Negative); Blood Moderate (Negative); Epithelial Cells None Seen /HPF (None Seen); Glucose, Urine >=1000 mg/dL (Negative); Hyaline Casts NONE SEEN /LPF (0-2); Ketones Negative (Negative); Leukocyte Esterase Negative (Negative); Nitrite Negative (Negative); Ph 5.5 (4.6-8.0); Protein,Urine Dip Negative (Negative); RBC 0-2 /HPF (0-5); Specific Gravity 1.015 (1.005-1.030); WBC 0-2 /HPF (0-5)
[2022-10-07 04:11] LABS: ADD URINE CULTURE? NO (NO)
[2022-10-07 05:44] LABS: Absolute Neutrophil Ct (ANC) 2.69 x10^3/uL (1.4-6.9); BASOPHIL % 0.3 % (0.0-0.4); Basophil (Absolute #) 0.01 x10^3/uL (0-0.4); Eosinophil % 1.1 % (0.00-5.0); Eosinophil (Absolute #) 0.04 x10^3/uL (0-0.5); Hematocrit 37.2 % (35-47); IMMATURE GRAN # 0.01 x10^3u/L (0.00-0.03); IMMATURE GRAN % 0.3 % (0.00-0.4); Lymphocyte (Absolute #) 0.76 x10^3/uL (1.0-4.6); Lymphocytes % 20.5 % (24.0-44.0); Mean Cell Volume 91.9 fL (78-100); Mean Corpuscular Hemoglobin 29.6 pg (26-32); Mean Corpuscular Hgb Concent. 32.3 g/dL (32-36); Mean Platelet Volume 10.8 fL (7.5-11.0); Monocyte (Absolute #) 0.19 x10^3/uL (0.0-1.3); Monocytes % 5.1 % (0.0-12.0); Neutrophil % 72.7 % (36.0-66.0); Platelet Count 88 x10^3/uL (150-450); Red Blood Count 4.05 x10^6/uL (4.1-5.4); Red Cell Distribution Width 13.9 % (11.5-14.0); White Blood Count 3.7 x10^3/uL (4.0-10.5)
[2022-10-07] MEDS: VENTOLIN COMMON CANISTER IH SCH ×2 (07:24→18:04)
[2022-10-07 08:31] LABS: Slide Review 1 YES
--- NOTE | 2022-10-07 08:59 | PCM.HP ---
History of Present Illness - Chief Complaint Chief Complaint: COVID History of Present Illness: is a 82 year old female who has had a cough for the last 5 days, no known fever but feels weak and unsteady for the last several days. She states that yesterday she became lightheaded and fell and hit her head, she felt like she truly passed out. She has a cardiac history including a fib and aicd, sees Dr Gaxiola. - Review of Systems Constitutional: No Fever, No Chills Respiratory: No Cough, No Short Of Breath Cardiac: Syncope, No Chest Pain, No Edema Abdominal/Gastrointestinal: No Abdominal Pain, No Nausea, No Vomiting, No Diarrhea Skin: No Rash All Other Systems: Reviewed and Negative Medications & Allergies Home Medications: Home Medication List Levothyroxine Sodium [Synthroid] 112 mcg PO DAILY 04/18/12 [History Confirmed 10/06/22] Zolpidem Tartrate 10 mg [Ambien 10 MG] 5 mg PO HS 04/18/12 [History Confirmed 10/06/22] Duloxetine HCl 30 mg [Cymbalta 30 MG Capsule] 60 mg PO DAILY 01/02/18 [History Confirmed 10/06/22] Omeprazole 20 MG [Prilosec 20 mg] 20 mg HS 01/02/18 [History Confirmed 10/06/22] Carvedilol [Coreg] 25 mg PO BID 01/10/21 [History Confirmed 10/06/22] Montelukast Sodium 10 mg [Singulair 10 MG] 10 mg PO HS 01/10/21 [History Confirmed 10/06/22] Oxybutynin Chloride Xl 5 mg [Ditropan XL 5 MG] 5 mg PO BID 01/10/21 [History Confirmed 10/06/22] Apixaban [Eliquis] 5 mg PO BID 07/26/21 [History Confirmed 10/06/22] Sacubitril/Valsartan [Entresto 97 mg-103 mg Tablet] 1 tab PO BID 07/26/21 [History Confirmed 10/06/22] Cetirizine HCl [Zyrtec] 10 mg PO HS 10/06/22 [History Confirmed 10/06/22] Empagliflozin [Jardiance] 10 mg PO DAILY 10/06/22 [History Confirmed 10/06/22] Ezetimibe 10 mg [Zetia 10 MG] 10 mg PO DAILY 10/06/22 [History Confirmed 10/06/22] Spironolactone 25 mg [Aldactone 25 MG] 12.5 mg PO DAILY 10/06/22 [History Confirmed 10/06/22] Allergies/Adverse Reactions: Allergies Allergy/AdvReac Type Severity Reaction Status Date / Time No Known Drug Allergies Allergy Verified 10/06/22 17:03 - Past Medical History Past Medical History: Yes Neurological History: No Pertinent History ENT History: Cataracts Cardiac History: Arrhythmia, High Cholesterol, Hypertension, Other Respiratory History: COPD Endocrine Medical History: Hypothyroidism Musculoskelatal History: Osteoarthritis, Other GI Medical History: GERD History: No Pertinent History Pyscho-Social History: Anxiety Reproductive Disorders: No Pertinent History Comment: HX OF ELBOW SURGERY FOR RADIAL TUNNEL RIGHT 1984. PACEMAKER/DEFIBRILLATOR 08/2019, POLYMYALGIA - Female History Are you now?: No - Past Surgical History Past Surgical History: Yes Neuro Surgical History: No Pertinent History Cardiac History: No Pertinent History, Internal Defibrillator, Pacemaker Respiratory Surgery: No Pertinent History GI Surgical History: Appendectomy, Cholecystectomy Genitourinary Surgical Hx: No Pertinent History Musculskeletal Surgical Hx: Other Female Surgical History: No Pertinent History Other Surgical History: breast biopsy. radial tunnel surgery on right arm. PACEMAKER/DEFIBRILLATOR 08/2019 - Social History Smoking Status: Never smoker Exposure to second hand smoke: No Alcohol: None Drug Use: none Significant Family History: no pertinent family hx - Physical Exam Vital Signs: Vital Signs - 24 hr Temp Pulse Resp BP Pulse Ox 10/07/22 07:53 97.7 F 79 16 142/73 10/07/22 04:30 98.3 F 78 16 136/70 99 10/07/22 00:00 97.8 F 78 18 159/77 98 10/06/22 23:10 81 20 95 10/06/22 22:10 98.4 F 77 18 166/73 96 10/06/22 20:24 81 156/77 95 10/06/22 19:45 81 128/86 95 10/06/22 19:27 79 16 128/86 95 10/06/22 18:51 95 10/06/22 18:21 71 18 119/84 93 L 10/06/22 16:08 96.7 F 79 21 134/72 97 General Appearance: no apparent distress Neurologic Exam: alert, oriented x 3 Respiratory Exam: normal breath sounds, lungs clear, No respiratory distress Cardiovascular Exam: regular rate/rhythm, normal heart sounds, normal peripheral pulses Gastrointestinal/Abdomen Exam: soft, normal bowel sounds, No tenderness, No mass Skin Exam: normal color, warm, dry, No rash Results - Labs Lab/Micro Results: Lab Results-Last 24 Hours 10/06/22 10/06/22 10/06/22 Range/Units 03:19 16:50 16:50 WBC 5.7 (4.0-10.5) x10^3/uL RBC 4.46 (4.1-5.4) x10^6/uL Hgb 13.4 (12.0-16.0) g/dL Hct 40.7 (35-47) % MCV 91.3 (78-100) fL MCH 30.0 (26-32) pg MCHC 32.9 (32-36) g/dL RDW 13.8 (11.5-14.0) % Plt Count 129 L (150-450) x10^3/uL MPV 10.2 (7.5-11.0) fL Gran % 70.0 H (36.0-66.0) % Immature Gran % (Auto) 0.4 (0.00-0.4) % Nucleat RBC Rel Count 0.0 (0.00-0.1) % Eos # (Auto) 0.06 (0-0.5) x10^3/uL Immature Gran # (Auto) 0.02 (0.00-0.03) x10^3u/L Absolute Lymphs (auto) 1.08 (1.0-4.6) x10^3/uL Absolute Monos (auto) 0.51 (0.0-1.3) x10^3/uL Absolute Nucleated RBC 0.00 (0.00-0.01) x10^3u/L Lymphocytes % 19.0 L (24.0-44.0) % Monocytes % 9.0 (0.0-12.0) % Eosinophils % 1.1 (0.00-5.0) % Basophils % 0.5 (0.0-0.4) % Absolute Granulocytes 3.99 (1.4-6.9) x10^3/uL Basophils # 0.03 (0-0.4) x10^3/uL Sodium 136 L (137-145) mmol/L Potassium 3.6 (3.5-5.1) mmol/L Chloride 106 (98-107) mmol/L Carbon Dioxide 23 (22-30) mmol/L Anion Gap 11.5 (5-15) MEQ/L BUN 15 (7-17) mg/dL Creatinine 0.67 (0.52-1.04) mg/dL Estimated GFR > 60.0 ML/MIN Glucose 140 H (74-106) mg/dL POC Glucometer (74 to 106) mg/dL Calcium 9.1 (8.4-10.2) mg/dL Total Bilirubin 1.20 (0.2-1.3) mg/dL AST 48 H (14-36) U/L ALT 36 H (0-35) U/L Alkaline Phosphatase 118 (38-126) U/L Troponin I (0.000-0.034) ng/mL Serum Total Protein 6.9 (6.3-8.2) g/dL Albumin 4.2 (3.5-5.0) g/dL Urine Color Yellow (Yellow) Urine Appearance Clear (Clear) Urine pH 5.5 (4.6-8.0) Ur Specific [place] 1.015 (1.005-1.030) Urine Protein Negative (Negative) Urine Glucose (UA) >=1000 A (Negative) mg/dL Urine Ketones Negative (Negative) Urine Blood Moderate A (Negative) Urine Nitrite Negative (Negative) Urine Bilirubin Negative (Negative) Urine Urobilinogen 1.0 A (0.2) mg/dL Ur Leukocyte Esterase Negative (Negative) U Hyaline Cast (Auto) NONE SEEN (0-2) /LPF Urine Microscopic RBC 0-2 (0-5) /HPF Urine Microscopic WBC 0-2 (0-5) /HPF Ur Epithelial Cells None Seen (None Seen) /HPF Urine Bacteria None Seen (None Seen) /HPF Urine Culture Reflexed NO (NO) Influenza Type A Ag (NEGATIVE) Influenza Type B Ag (NEGATIVE) RSV (PCR) (Negative) SARS-CoV-2 (PCR) (NEGATIVE) Slides for Path Review 10/06/22 10/06/22 10/06/22 Range/Units 16:50 16:55 19:35 WBC (4.0-10.5) x10^3/uL RBC (4.1-5.4) x10^6/uL Hgb (12.0-16.0) g/dL Hct (35-47) % MCV (78-100) fL MCH (26-32) pg MCHC (32-36) g/dL RDW (11.5-14.0) % Plt Count (150-450) x10^3/uL MPV (7.5-11.0) fL Gran % (36.0-66.0) % Immature Gran % (Auto) (0.00-0.4) % Nucleat RBC Rel Count (0.00-0.1) % Eos # (Auto) (0-0.5) x10^3/uL Immature Gran # (Auto) (0.00-0.03) x10^3u/L Absolute Lymphs (auto) (1.0-4.6) x10^3/uL Absolute Monos (auto) (0.0-1.3) x10^3/uL Absolute Nucleated RBC (0.00-0.01) x10^3u/L Lymphocytes % (24.0-44.0) % Monocytes % (0.0-12.0) % Eosinophils % (0.00-5.0) % Basophils % (0.0-0.4) % Absolute Granulocytes (1.4-6.9) x10^3/uL Basophils # (0-0.4) x10^3/uL Sodium (137-145) mmol/L Potassium (3.5-5.1) mmol/L Chloride (98-107) mmol/L Carbon Dioxide (22-30) mmol/L Anion Gap (5-15) MEQ/L BUN (7-17) mg/dL Creatinine (0.52-1.04) mg/dL Estimated GFR ML/MIN Glucose (74-106) mg/dL POC Glucometer (74 to 106) mg/dL Calcium (8.4-10.2) mg/dL Total Bilirubin (0.2-1.3) mg/dL AST (14-36) U/L ALT (0-35) U/L Alkaline Phosphatase (38-126) U/L Troponin I < 0.012 < 0.012 (0.000-0.034) ng/mL Serum Total Protein (6.3-8.2) g/dL Albumin (3.5-5.0) g/dL Urine Color (Yellow) Urine Appearance (Clear) Urine pH (4.6-8.0) Ur Specific [place] (1.005-1.030) Urine Protein (Negative) Urine Glucose (UA) (Negative) mg/dL Urine Ketones (Negative) Urine Blood (Negative) Urine Nitrite (Negative) Urine Bilirubin (Negative) Urine Urobilinogen (0.2) mg/dL Ur Leukocyte Esterase (Negative) U Hyaline Cast (Auto) (0-2) /LPF Urine Microscopic RBC (0-5) /HPF Urine Microscopic WBC (0-5) /HPF Ur Epithelial Cells (None Seen) /HPF Urine Bacteria (None Seen) /HPF Urine Culture Reflexed (NO) Influenza Type A Ag NEGATIVE (NEGATIVE) Influenza Type B Ag NEGATIVE (NEGATIVE) RSV (PCR) NEGATIVE (Negative) SARS-CoV-2 (PCR) POSITIVE A (NEGATIVE) Slides for Path Review 10/06/22 10/07/22 10/07/22 Range/Units 19:35 04:26 07:22 WBC 3.7 L (4.0-10.5) x10^3/uL RBC 4.05 L (4.1-5.4) x10^6/uL Hgb 12.0 (12.0-16.0) g/dL Hct 37.2 (35-47) % MCV 91.9 (78-100) fL MCH 29.6 (26-32) pg MCHC 32.3 (32-36) g/dL RDW 13.9 (11.5-14.0) % Plt Count 88 L (150-450) x10^3/uL MPV 10.8 (7.5-11.0) fL Gran % 72.7 H (36.0-66.0) % Immature Gran % (Auto) 0.3 (0.00-0.4) % Nucleat RBC Rel Count 0.0 (0.00-0.1) % Eos # (Auto) 0.04 (0-0.5) x10^3/uL Immature Gran # (Auto) 0.01 (0.00-0.03) x10^3u/L Absolute Lymphs (auto) 0.76 L (1.0-4.6) x10^3/uL Absolute Monos (auto) 0.19 (0.0-1.3) x10^3/uL Absolute Nucleated RBC 0.00 (0.00-0.01) x10^3u/L Lymphocytes % 20.5 L (24.0-44.0) % Monocytes % 5.1 (0.0-12.0) % Eosinophils % 1.1 (0.00-5.0) % Basophils % 0.3 (0.0-0.4) % Absolute Granulocytes 2.69 (1.4-6.9) x10^3/uL Basophils # 0.01 (0-0.4) x10^3/uL Sodium 139 (137-145) mmol/L Potassium 3.8 (3.5-5.1) mmol/L Chloride 109 H (98-107) mmol/L Carbon Dioxide 24 (22-30) mmol/L Anion Gap 10.3 (5-15) MEQ/L BUN 16 (7-17) mg/dL Creatinine 0.60 (0.52-1.04) mg/dL Estimated GFR > 60.0 ML/MIN Glucose 100 (74-106) mg/dL POC Glucometer 156 H (74 to 106) mg/dL Calcium 8.6 (8.4-10.2) mg/dL Total Bilirubin 0.80 (0.2-1.3) mg/dL AST 37 H (14-36) U/L ALT 32 (0-35) U/L Alkaline Phosphatase 104 (38-126) U/L Troponin I (0.000-0.034) ng/mL Serum Total Protein 6.1 L (6.3-8.2) g/dL Albumin 3.7 (3.5-5.0) g/dL Urine Color (Yellow) Urine Appearance (Clear) Urine pH (4.6-8.0) Ur Specific [place] (1.005-1.030) Urine Protein (Negative) Urine Glucose (UA) (Negative) mg/dL Urine Ketones (Negative) Urine Blood (Negative) Urine Nitrite (Negative) Urine Bilirubin (Negative) Urine Urobilinogen (0.2) mg/dL Ur Leukocyte Esterase (Negative) U Hyaline Cast (Auto) (0-2) /LPF Urine Microscopic RBC (0-5) /HPF Urine Microscopic WBC (0-5) /HPF Ur Epithelial Cells (None Seen) /HPF Urine Bacteria (None Seen) /HPF Urine Culture Reflexed (NO) Influenza Type A Ag (NEGATIVE) Influenza Type B Ag (NEGATIVE) RSV (PCR) (Negative) SARS-CoV-2 (PCR) (NEGATIVE) Slides for Path Review YES Accuchecks Date 10/07/22 - Radiology Impressions Radiology Exams & Impressions: Radiology Procedures Category Date Time Status CERVICAL SPINE WO CONTRAST [CT] Stat Exams 10/06/22 16:23 Taken CHEST 1 VIEW (PORTABLE) Stat Exams 10/06/22 16:22 Taken ECHO W/2D AND DOPPLER [US] Routine Exams 10/07/22 08:53 Ordered HEAD WITHOUT CONTRAST [CT] Stat Exams 10/06/22 16:23 Taken - Other Procedures and Tests Respiratory Therapy 10/06/22 23:21 Respiratory Therapy Assessment DAILY Assessment/Plan (1) COVID Current Visit: Yes Status: Acute Assessment & Plan: continue remdesivir, decadron and eliquis. no oxygen requirement currently and patient is stable Code(s): U07.1 - COVID-19 (2) Syncope Current Visit: Yes Status: Acute Assessment & Plan: troponin repeat tomorrow, check echo Code(s): R55 - SYNCOPE AND COLLAPSE (3) CHF (congestive heart failure) Current Visit: No Status: Chronic Code(s): I50.9 - HEART FAILURE, UNSPECIFIED
--- NOTE | 2022-10-07 09:05 | XRAY ---
Indication: Head injury following fall. Syncope. Multiple contiguous axial images obtained through the head without contrast. Comparison: January 10, 2021 Again age-appropriate global atrophy and minimal periventricular degenerative micro-ischemia bilaterally. No acute intracranial hemorrhage, abnormal extra-axial fluid collection, or mass effect. Fourth ventricle is midline without hydrocephalus. Bony calvarium intact. Visualized paranasal sinuses and mastoid air cells are clear. Impression: Continued nonacute senile brain.
--- NOTE | 2022-10-07 09:06 | XRAY ---
Indication: Pain following fall. Multiple contiguous axial images obtained through the cervical spine. Sagittal and coronal reformatted images obtained. Comparison: January 10, 2021 Study is degraded by motion artifact throughout. Grossly stable osteopenia. Axial images grossly negative for acute fracture, suspicious bony lesions, or spinal canal stenosis. There remains grossly stable C6-C7 degenerative endplate spurring and moderate multilevel bilateral degenerative facet hypertrophy. Sagittal and coronal reformatted images again demonstrates lordotic reversal, minimal anterolisthesis C4 on C5, and C6-C7 disc space loss. No gross acute compression fracture, sublocation, or jumped facet. Grossly normal appearing craniocervical junction. Visualized noncontrasted soft tissues unremarkable. Impression: 1. Motion artifact. 2. Grossly negative for acute fracture. 3. Grossly stable osteopenia, cervical lordotic reversal, multilevel degenerative spondylosis, and minimal grade 1 C4 anterolisthesis.
--- NOTE | 2022-10-07 09:08 | XRAY ---
Indication: Status post fall. Comparison: December 25, 2021 Portable chest unchanged again demonstrating scattered calcific granulomas, left AICD, and right hemidiaphragm elevation. Remaining heart and lungs unremarkable. Bony thorax intact again with osteopenia and mild degenerative changes. Impression: Continued nonacute chest with chronic features.
[2022-10-07] MEDS: Aldactone 25 MG PO SCH (11:50)
[2022-10-07] MEDS: Cymbalta 30 MG Capsule PO SCH (11:51)
[2022-10-07] MEDS: SYNTHROID 112 MCG PO SCH (11:52)
--- NOTE | 2022-10-07 14:06 | ECHO ---
DATE OF TEST: 10/07/2022 INDICATION: Syncope and COVID-19 pneumonia. FINDINGS: 1) Normal left ventricle cavity size and upper limits of normal left ventricular wall thickness with normal left ventricular systolic function. Overall left ventricular ejection fraction is 60-65%. There is grade I diastolic dysfunction with abnormal relaxation pattern. Right ventricle is normal in size and systolic function. There is pacemaker lead in the right ventricle. 2) Borderline left atrial enlargement. Normal right atrial size. 3) Mitral valve is grossly normal. There is trace mitral regurgitation. Tricuspid valve is grossly normal with trace tricuspid regurgitation and estimated PA systolic pressure of 44 mm of Mercury. Aortic valve is trileaflet with normal valve excursion. No aortic insufficiency was noted. Pulmonic valve is grossly normal. No pulmonic insufficiency was detected. 4) No pericardial effusion. 5) Inferior vena cava is normal in size and inspiratory collapse. IMPRESSION: 1) NORMAL LEFT VENTRICULAR SIZE AND SYSTOLIC FUNCTION. OVERALL LEFT VENTRICULAR EJECTION FRACTION IS 60-65%. 2) GRADE I DIASTOLIC DYSFUNCTION 3) NO EVIDENCE OF PULMONARY HYPERTENSION. 4) PACEMAKER LEAD IN THE RIGHT VENTRICLE.
[2022-10-07] MEDS ORDERED: REMDESIVIR 100 MG in Sodium Chloride 100ML MINI-BAG PLUS 100 ML IV SCH (23:00)
[2022-10-08 05:53] LABS: Absolute Neutrophil Ct (ANC) 2.76 x10^3/uL (1.4-6.9); Basophil (Absolute #) 0 x10^3/uL (0-0.4); Eosinophil (Absolute #) 0 x10^3/uL (0-0.5); Hematocrit 34.4 % (35-47); Hemoglobin 11.4 g/dL (12.0-16.0); IMMATURE GRAN # 0.01 x10^3u/L (0.00-0.03); IMMATURE GRAN % 0.3 % (0.00-0.4); Lymphocyte (Absolute #) 0.61 x10^3/uL (1.0-4.6); Lymphocytes % 16.7 % (24.0-44.0); Mean Cell Volume 91.2 fL (78-100); Mean Corpuscular Hemoglobin 30.2 pg (26-32); Mean Corpuscular Hgb Concent. 33.1 g/dL (32-36); Mean Platelet Volume 10.6 fL (7.5-11.0); Monocyte (Absolute #) 0.27 x10^3/uL (0.0-1.3); Monocytes % 7.4 % (0.0-12.0); Neutrophil % 75.6 % (36.0-66.0); Platelet Count 99 x10^3/uL (150-450); Red Blood Count 3.77 x10^6/uL (4.1-5.4); Red Cell Distribution Width 13.5 % (11.5-14.0); White Blood Count 3.7 x10^3/uL (4.0-10.5)
[2022-10-08 06:11] LABS: ANION GAP 11.7 MEQ/L (5-15); BLOOD UREA NITROGEN 16 mg/dL (7-17); CHLORIDE 108 mmol/L (98-107); Calcium 8.9 mg/dL (8.4-10.2); Carbon Dioxide 23 mmol/L (22-30); Creatinine 1 0.55 mg/dL (0.52-1.04); EST GLOMERULAR FILTRATION RATE > 60.0 ML/MIN; Glucose 143 mg/dL (74-106); MAGNESIUM 2.1 mg/dL (1.6-2.3); Potassium 3.4 mmol/L (3.5-5.1); SODIUM 139 mmol/L (137-145)
[2022-10-08] MEDS: VENTOLIN COMMON CANISTER IH SCH (06:18)
[2022-10-08 07:27] LABS: Slide Review 1 YES
[2022-10-08 08:09] VITALS: BP 123/59; PULSE 68; O2SAT 98
--- NOTE | 2022-10-08 08:56 | PCM.DS ---
Discharge Summary Date of Admission: 10/06/22 21:40 Admitting Physician: GARCIA RDZ Primary Care Provider: CLARISSA ZARATE Allergies Allergies No Known Drug Allergies Allergy (Verified 10/06/22 17:03) Hospital Summary - Hospital Course Hospital Course: patient arrived after weakness and a syncopal episode, found to have covid. she has mild symptoms of a cough but no fever or shortness of breath, she is vaccinated. she feels well since admission, no chest pain or shortness of breath. she is ambulating and requesting discharge today - Vitals & Intake/Output Vital Signs: Vital Signs Temperature 98.7 F 10/08/22 08:00 Pulse Rate 68 10/08/22 08:00 Respiratory Rate 21 10/08/22 08:00 Blood Pressure 123/59 10/08/22 08:00 O2 Sat by Pulse Oximetry 98 10/08/22 08:00 Intake & Output: Intake & Output 10/05/22 10/06/22 10/07/22 10/08/22 11:59 11:59 11:59 11:59 Intake Total 1342 900 Output Total 1000 Balance 342 900 Weight 68.4 kg - Lab Result Diagrams: 10/08/22 04:28 10/08/22 04:28 Lab Results-Last 24 Hrs: Lab Results-Last 24 Hours 10/07/22 10/07/22 10/07/22 Range/Units 11:15 16:44 17:47 WBC (4.0-10.5) x10^3/uL RBC (4.1-5.4) x10^6/uL Hgb (12.0-16.0) g/dL Hct (35-47) % MCV (78-100) fL MCH (26-32) pg MCHC (32-36) g/dL RDW (11.5-14.0) % Plt Count (150-450) x10^3/uL MPV (7.5-11.0) fL Gran % (36.0-66.0) % Immature Gran % (Auto) (0.00-0.4) % Nucleat RBC Rel Count (0.00-0.1) % Eos # (Auto) (0-0.5) x10^3/uL Immature Gran # (Auto) (0.00-0.03) x10^3u/L Absolute Lymphs (auto) (1.0-4.6) x10^3/uL Absolute Monos (auto) (0.0-1.3) x10^3/uL Absolute Nucleated RBC (0.00-0.01) x10^3u/L Lymphocytes % (24.0-44.0) % Monocytes % (0.0-12.0) % Eosinophils % (0.00-5.0) % Basophils % (0.0-0.4) % Absolute Granulocytes (1.4-6.9) x10^3/uL Basophils # (0-0.4) x10^3/uL Sodium (137-145) mmol/L Potassium (3.5-5.1) mmol/L Chloride (98-107) mmol/L Carbon Dioxide (22-30) mmol/L Anion Gap (5-15) MEQ/L BUN (7-17) mg/dL Creatinine (0.52-1.04) mg/dL Estimated GFR ML/MIN Glucose (74-106) mg/dL POC Glucometer 179 H 176 H (74 to 106) mg/dL Hemoglobin A1c 5.39 (4.5-6.0) % Calcium (8.4-10.2) mg/dL Magnesium (1.6-2.3) mg/dL Troponin I (0.000-0.034) ng/mL Slides for Path Review 10/07/22 10/08/22 10/08/22 Range/Units 22:09 04:28 04:28 WBC 3.7 L (4.0-10.5) x10^3/uL RBC 3.77 L (4.1-5.4) x10^6/uL Hgb 11.4 L (12.0-16.0) g/dL Hct 34.4 L (35-47) % MCV 91.2 (78-100) fL MCH 30.2 (26-32) pg MCHC 33.1 (32-36) g/dL RDW 13.5 (11.5-14.0) % Plt Count 99 L (150-450) x10^3/uL MPV 10.6 (7.5-11.0) fL Gran % 75.6 H (36.0-66.0) % Immature Gran % (Auto) 0.3 (0.00-0.4) % Nucleat RBC Rel Count 0.0 (0.00-0.1) % Eos # (Auto) 0 (0-0.5) x10^3/uL Immature Gran # (Auto) 0.01 (0.00-0.03) x10^3u/L Absolute Lymphs (auto) 0.61 L (1.0-4.6) x10^3/uL Absolute Monos (auto) 0.27 (0.0-1.3) x10^3/uL Absolute Nucleated RBC 0.00 (0.00-0.01) x10^3u/L Lymphocytes % 16.7 L (24.0-44.0) % Monocytes % 7.4 (0.0-12.0) % Eosinophils % 0.0 (0.00-5.0) % Basophils % 0.0 (0.0-0.4) % Absolute Granulocytes 2.76 (1.4-6.9) x10^3/uL Basophils # 0 (0-0.4) x10^3/uL Sodium 139 (137-145) mmol/L Potassium 3.4 L (3.5-5.1) mmol/L Chloride 108 H (98-107) mmol/L Carbon Dioxide 23 (22-30) mmol/L Anion Gap 11.7 (5-15) MEQ/L BUN 16 (7-17) mg/dL Creatinine 0.55 (0.52-1.04) mg/dL Estimated GFR > 60.0 ML/MIN Glucose 143 H (74-106) mg/dL POC Glucometer 153 H (74 to 106) mg/dL Hemoglobin A1c (4.5-6.0) % Calcium 8.9 (8.4-10.2) mg/dL Magnesium 2.1 (1.6-2.3) mg/dL Troponin I (0.000-0.034) ng/mL Slides for Path Review YES 10/08/22 10/08/22 Range/Units 04:28 06:39 WBC (4.0-10.5) x10^3/uL RBC (4.1-5.4) x10^6/uL Hgb (12.0-16.0) g/dL Hct (35-47) % MCV (78-100) fL MCH (26-32) pg MCHC (32-36) g/dL RDW (11.5-14.0) % Plt Count (150-450) x10^3/uL MPV (7.5-11.0) fL Gran % (36.0-66.0) % Immature Gran % (Auto) (0.00-0.4) % Nucleat RBC Rel Count (0.00-0.1) % Eos # (Auto) (0-0.5) x10^3/uL Immature Gran # (Auto) (0.00-0.03) x10^3u/L Absolute Lymphs (auto) (1.0-4.6) x10^3/uL Absolute Monos (auto) (0.0-1.3) x10^3/uL Absolute Nucleated RBC (0.00-0.01) x10^3u/L Lymphocytes % (24.0-44.0) % Monocytes % (0.0-12.0) % Eosinophils % (0.00-5.0) % Basophils % (0.0-0.4) % Absolute Granulocytes (1.4-6.9) x10^3/uL Basophils # (0-0.4) x10^3/uL Sodium (137-145) mmol/L Potassium (3.5-5.1) mmol/L Chloride (98-107) mmol/L Carbon Dioxide (22-30) mmol/L Anion Gap (5-15) MEQ/L BUN (7-17) mg/dL Creatinine (0.52-1.04) mg/dL Estimated GFR ML/MIN Glucose (74-106) mg/dL POC Glucometer 185 H (74 to 106) mg/dL Hemoglobin A1c (4.5-6.0) % Calcium (8.4-10.2) mg/dL Magnesium (1.6-2.3) mg/dL Troponin I < 0.012 (0.000-0.034) ng/mL Slides for Path Review Micro Results-Entire Visit: Microbiology 10/06/22 16:50 Blood Culture - Preliminary Blood NO GROWTH TO DATE Accuchecks Date 10/08/22 Date 10/07/22 Date 10/07/22 Time 08:07 - Radiology Exams Ordered Rad Exams-Entire Visit: Radiology Procedures Category Date Time Status CERVICAL SPINE WO CONTRAST [CT] Stat Exams 10/06/22 16:23 Completed CHEST 1 VIEW (PORTABLE) Stat Exams 10/06/22 16:22 Completed ECHO W/2D AND DOPPLER [US] Routine Exams 10/07/22 08:53 Draft HEAD WITHOUT CONTRAST [CT] Stat Exams 10/06/22 16:23 Completed - Procedures and Test Procedures and Tests throughout Hospitalization: Therapy Orders & Screens 10/06/22 18:53 Respiratory Therapy Consult ROUTINE Comment: Reason For Exam: 10/06/22 23:20 Respiratory MDI BID Comment: 10/06/22 23:21 Respiratory Therapy Assessment DAILY Comment: 10/07/22 01:02 Incentive Spirometry UD Comment: Discharge Exam General Appearance: no apparent distress Neurologic Exam: alert, oriented x 3 Respiratory Exam: normal breath sounds, lungs clear, No respiratory distress Cardiovascular Exam: regular rate/rhythm, normal heart sounds Gastrointestinal/Abdomen Exam: soft, No tenderness, No mass Extremity Exam: normal inspection, normal range of motion Skin Exam: normal color, warm, dry Final Diagnosis/Problem List - Final Discharge Diagnosis/Problem (1) COVID Current Visit: Yes Status: Acute Assessment & Plan: mild, has received remdesivir but doesn't need to stay for it due to mild symptoms. admission was actually due to syncope Code(s): U07.1 - COVID-19 (2) Syncope Current Visit: Yes Status: Acute Assessment & Plan: IL ruled out, troponin negative again today, heart rate normal on telemetry, echo looks good Code(s): R55 - SYNCOPE AND COLLAPSE (3) CHF (congestive heart failure) Current Visit: No Status: Chronic Code(s): I50.9 - HEART FAILURE, UNSPECIFIED - Discharge Disposition: Home, Self-Care Condition: Fair Prescriptions: New dexAMETHasone [Dexamethasone] 6 mg PO DAILY #5 tablet Continue Levothyroxine Sodium [Synthroid] 112 mcg PO DAILY Zolpidem Tartrate 10 mg [Ambien 10 MG] 5 mg PO HS Omeprazole 20 MG [Prilosec 20 mg] 20 mg HS Duloxetine HCl 30 mg [Cymbalta 30 MG Capsule] 60 mg PO DAILY Montelukast Sodium 10 mg [Singulair 10 MG] 10 mg PO HS Oxybutynin Chloride Xl 5 mg [Ditropan XL 5 MG] 5 mg PO BID Carvedilol [Coreg] 25 mg PO BID Sacubitril/Valsartan [Entresto 97 mg-103 mg Tablet] 1 tab PO BID Apixaban [Eliquis] 5 mg PO BID Empagliflozin [Jardiance] 10 mg PO DAILY Ezetimibe 10 mg [Zetia 10 MG] 10 mg PO DAILY Spironolactone 25 mg [Aldactone 25 MG] 12.5 mg PO DAILY Cetirizine HCl [Zyrtec] 10 mg PO HS Follow up with: CLARISSA ZARATE MD [Primary Care Provider] - Oz Gaxiola MD [Family Provider] -
[2022-10-08] MEDS: Cymbalta 30 MG Capsule PO SCH (09:48)
[2022-10-08] MEDS: ELIQUIS 2.5 MG TABLET PO SCH (09:49)
[2022-10-08] MEDS: ENTRESTO 49 MG-51 MG TABLET PO SCH (09:49)
[2022-10-08] MEDS: Ditropan XL 5 MG PO SCH (09:49)
[2022-10-08] MEDS: COREG 12.5 MG PO SCH (09:49)
[2022-10-08] MEDS: Decadron 4 MG INJ IV SCH (09:50)
[2022-10-08] MEDS: SYNTHROID 112 MCG PO SCH (09:50)
[2022-10-08] MEDS: Aldactone 25 MG PO SCH (09:51)
== END 2022-10-08 11:15 | disposition home or self-care (01) ==
LOC: ED 16:05 → MED SURG 21:40
PROVIDERS: ADMIT Family Medicine; ATTEND Family Medicine
DX: U07.1 COVID-19 (principal); R55 Syncope and collapse; I11.0 Hypertensive heart disease with heart failure; I50.9 Heart failure, unspecified; I48.91 Unspecified atrial fibrillation; Z79.01 Long term (current) use of anticoagulants; Z79.899 Other long term (current) drug therapy; Z20.828 Contact with and (suspected) exposure to other viral communicable diseases
CPT/HCPCS: 0241U; 36000; 36415; 70450; 71045; 72125; 80048; 80053; 81001; 82947; 83036; 83735; 84484; 85025; 87040; 93005; 93306; 94640; 94762; 96360; 99285; 93268; J0248; J1100; A9270-GY; G0378

== ENCOUNTER 2023-12-14 20:37 | Emergency (ER) | payer MEDICARE, OTHER ==
[2023-12-14 21:17] VITALS: RESP 18; TEMP 97.3; O2SAT 94
[2023-12-14] MEDS ORDERED: TYLENOL 325 MG ONE (21:26)
[2023-12-14] MEDS: TYLENOL 325 MG PO ONE (21:31)
--- NOTE | 2023-12-14 21:35 | ERPHSYRPT ---
- History of Present Illness Time Seen by Provider: 12/14/23 21:10 Source: patient Exam Limitations: no limitations Patient Subjective Stated Complaint: R ear bleeding since 1400 after patient using a Q tip on R ear trying to get hardened wax Triage Nursing Assessment: pt ambulatory to bed by self with steady gait, pt alert and oriented x3, skin pwd, pt c/o bleeding from R ear after using Q tip around 1400, pt denies any pain, dried blood in ear canal of R ear, pt denies any tinnitis or hearing loss Physician History: 83-year-old female presents to our ED for evaluation of bleeding from right ear. Patient currently on Eliquis. Patient was cleaning her ear with a Q-tip and accidentally injured her ear causing the ear to bleed. Patient has mild to moderate pain localized no radiation. No hearing deficits. No dizziness. Symptoms are mild to moderate in intensity. Manipulation of the involved ear reproduces pain. Patient voices no other complaints or concerns at this time. Portions of this note were created with voice recognition technology. There may be grammatical, spelling, punctuation or sound alike errors Timing/Duration: today Severity: moderate Modifying Factors: Improves With: nothing Associated Symptoms: denies symptoms Allergies/Adverse Reactions: No Known Drug Allergies Allergy (Verified 12/14/23 21:02) Home Medications: Levothyroxine Sodium [Synthroid] 112 mcg PO DAILY 04/18/12 [History] Zolpidem Tartrate 10 mg [Ambien 10 MG] 5 mg PO HS 04/18/12 [History] Duloxetine HCl 30 mg [Cymbalta 30 MG Capsule] 60 mg PO DAILY 01/02/18 [History] Omeprazole 20 MG [Prilosec 20 mg] 20 mg HS 01/02/18 [History] Montelukast Sodium 10 mg [Singulair 10 MG] 10 mg PO HS 01/10/21 [History] Oxybutynin Chloride Xl 5 mg [Ditropan XL 5 MG] 5 mg PO BID 01/10/21 [History] carvediloL [Coreg] 25 mg PO BID 01/10/21 [History] Apixaban [Eliquis] 5 mg PO BID 07/26/21 [History] Sacubitril/Valsartan [Entresto 97 mg-103 mg Tablet] 1 tab PO BID 07/26/21 [History] Cetirizine HCl [Zyrtec] 10 mg PO HS 10/06/22 [History] Empagliflozin [Jardiance] 10 mg PO DAILY 10/06/22 [History] Ezetimibe 10 mg [Zetia 10 MG] 10 mg PO DAILY 10/06/22 [History] Spironolactone 25 mg [Aldactone 25 MG] 12.5 mg PO DAILY 10/06/22 [History] Hx Tetanus, Diphtheria Vaccination/Date Given: Yes Hx Influenza Vaccination/Date Given: Yes Hx Pneumococcal Vaccination/Date Given: Yes Immunizations Up to Date: Yes Travel Risk - International Travel Have you traveled outside of the country in past 3 weeks: No - Emerging Infectious Disease Are you exhibiting symptoms associated with any current EIDs: No - Review of Systems Constitutional: No Symptoms, No Fever, No Chills Eyes: No Symptoms Ears, Nose, & Throat: No Symptoms Respiratory: No Symptoms, No Cough, No Dyspnea Cardiac: No Symptoms, No Chest Pain, No Edema, No Syncope Abdominal/Gastrointestinal: No Symptoms, No Abdominal Pain, No Nausea, No Vomiting, No Diarrhea Genitourinary Symptoms: No Symptoms, No Dysuria Musculoskeletal: No Symptoms, No Back Pain, No Neck Pain Skin: No Symptoms, No Rash Neurological: No Symptoms, No Dizziness, No Focal Weakness, No Sensory Changes Psychological: No Symptoms Endocrine: No Symptoms Hematologic/Lymphatic: No Symptoms Immunological/Allergic: No Symptoms All Other Systems: Reviewed and Negative - Past Medical History Pertinent Past Medical History: Yes Neurological History: No Pertinent History ENT History: Cataracts Cardiac History: Arrhythmia, High Cholesterol, Hypertension, Other Respiratory History: COPD Endocrine Medical History: Hypothyroidism Musculoskeletal History: Osteoarthritis, Other GI Medical History: GERD History: No Pertinent History Psycho-Social History: Anxiety Female Reproductive Disorders: No Pertinent History Other Medical History: HX OF ELBOW SURGERY FOR RADIAL TUNNEL RIGHT 1984. PACEMAKER/DEFIBRILLATOR 08/2019, FIBROMYALGIA - Past Surgical History Past Surgical History: Yes Neuro Surgical History: No Pertinent History Cardiac: No Pertinent History, Internal Defibrillator, Pacemaker Respiratory: No Pertinent History Gastrointestinal: Appendectomy, Cholecystectomy Genitourinary: No Pertinent History Musculoskeletal: Other Female Surgical History: No Pertinent History Other Surgical History: breast biopsy. radial tunnel surgery on right arm. PACEMAKER/DEFIBRILLATOR 08/2019 Significant Family History: no pertinent family hx - Social History Smoking Status: Never smoker Exposure to second hand smoke: No Drug Use: none Patient Lives Alone: No - Nursing Vital Signs Nursing Vital Signs: Initial Vital Signs Temperature 97.3 F 12/14/23 21:02 Pulse Rate 71 12/14/23 21:02 Respiratory Rate 18 12/14/23 21:02 Blood Pressure 207/79 12/14/23 21:02 O2 Sat by Pulse Oximetry 94 L 12/14/23 21:02 Pain Scale Pain Intensity 4 - Physical Exam General Appearance: no apparent distress, alert Eye Exam: PERRL/EOMI, eyes nml inspection Ears, Nose, Throat Exam: normal ENT inspection, TMs normal, pharynx normal, moist mucous membranes Neck Exam: normal inspection, non-tender, supple, full range of motion Respiratory Exam: normal breath sounds, lungs clear, airway intact, No respiratory distress Cardiovascular Exam: regular rate/rhythm, normal heart sounds, normal peripheral pulses Gastrointestinal/Abdomen Exam: soft, normal bowel sounds, No tenderness, No mass Back Exam: normal inspection, normal range of motion, No CVA tenderness, No vertebral tenderness Extremity Exam: normal inspection, normal range of motion, pelvis stable Neurologic Exam: alert, oriented x 3, cooperative, normal mood/affect, nml cerebellar function, nml station & gait, sensation nml, No motor deficits Skin Exam: normal color, warm, dry, No rash Lymphatic Exam: No adenopathy SpO2 Interpretation: normal SpO2: 94 O2 Delivery: Room Air - Course Nursing assessment & vital signs reviewed: Yes Ordered Tests: Medication Summary Discontinued Medications Generic Name Dose Route Start Last Admin Trade Name Tejasq PRN Reason Stop Dose Admin Acetaminophen 975 mg 12/14/23 21:24 12/14/23 21:31 Acetaminophen 325 Mg Tablet PO 12/14/23 21:25 975 mg STAT ONE Administration Acetaminophen Confirm 12/14/23 21:26 Acetaminophen 325 Mg Tablet Administered 12/14/23 21:27 Dose 975 mg .ROUTE .STK-MED ONE - Progress Progress: improved Progress Note: Patient is an 83-year-old female presents to our ED for evaluation of bleeding from her right ear after using a Q-tip. Ear irrigated. No active bleeding. They are requesting a cotton to absorb any residual irrigant. Patient received oral Tylenol for some ear discomfort. Pain improved. Blood pressure improved now at 187/76. Patient resting comfortably. She is otherwise asymptomatic. Daughter at bedside. They voiced no other complaints or concerns at this time. Portions of this note were created with voice recognition technology. There may be grammatical, spelling, punctuation or sound alike errors Complexity problem addressed is moderate acute complicated No critical care time Complex of data reviewed and analyzed is low. Diagnosis made based on history and physical. No specialized testing ordered Risk of complication and or risk of morbidity/mortality of patient management is low. No indication for antibiotics at this time. Patient states she will follow-up with ENT. Vital stable. Time spent to discharge patient is approximately 15 minutes. Plan of care established for shared decision making. No social determinants of health present impede follow- up. Portions of this note were created with voice recognition technology. There may be grammatical, spelling, punctuation or sound alike errors 12/14/23 22:10 Counseled pt/family regarding: diagnosis, need for follow-up - Departure Departure Disposition: Home Clinical Impression: Bleeding from ear, Hypertension Condition: Stable Critical Care Time: No Referrals: GARCIA RDZ MD [Primary Care Provider] - Follow up/PCP as directed Additional Instructions: Discharge/Care Plan FAVIOLA SEGURA was seen on 12/14/23 in the Emergency Room. The patient was counseled regarding Diagnosis,Lab results, Imaging studies, need for follow up and when to return to the Emergency Room. Prescriptions given: Discharge Note I have spoken with the patient and/or caregivers. I have explained the patient's condition, diagnosis and treatment plan based on the information available to me at this time. I have answered the patient's and/or caregiver's questions and addressed any concerns. The patient and/or caregivers have as good understanding of the patient's diagnosis, condition and treatment plan as can be expected at this point. The vital signs have been stable. The patient's condition is stable and appropriate for discharge from the emergency department. The patient will pursue further outpatient evaluation with the primary care physician or other designated or consulting physician as outlined in the discharge instructions. The patient and/or caregivers are agreeable to this plan of care and follow-up instructions have been explained in detail. The patient and/or caregivers have received these instruction. The patient/and or caregivers are aware that any significant change in condition or worsening of symptoms should prompt an immediate return to this or the closest emergency department or call 911.
[2023-12-14 22:08] VITALS: BP 187/76; PULSE 72
== END 2023-12-14 22:22 | disposition home or self-care (01) ==
LOC: ED 20:37
DX: H92.21 Otorrhagia, right ear (principal); I10 Essential (primary) hypertension; E78.5 Hyperlipidemia, unspecified; Z79.01 Long term (current) use of anticoagulants; Z79.84 Long term (current) use of oral hypoglycemic drugs; Z79.899 Other long term (current) drug therapy
CPT/HCPCS: 69210; 99282; A9270-GY

== ENCOUNTER 2024-03-07 09:12 | Day surgery (SDC) | payer MEDICARE, OTHER ==
[2024-03-07] MEDS ORDERED: Sodium Chloride 0.9(Preservative Free) 10 ML IJ ONE (09:13)
[2024-03-07] MEDS ORDERED: LIDOCAINE HCL 1% 50 MG/5 ML VL PF IJ ONE (09:13)
[2024-03-07] MEDS ORDERED: Decadron 4 MG INJ IV ONE (09:13)
[2024-03-07] MEDS ORDERED: DIPRIVAN 200 MG/20 ML IV ONE (11:10)
[2024-03-07] MEDS ORDERED: Lactated Ringers 1,000 ML IV ONE (12:54)
--- NOTE | 2024-03-07 13:25 | XRAY ---
Indication: Left L4-S1 transforaminal LUIS. Intraoperative fluoroscopy provided for 24 seconds. 5 digital spot image submitted for interpretation demonstrate posterior needle tips projecting over the expected left L4 and L5 nerve roots. Small amount of contrast injected for needle tip placement. Correlate with intraoperative findings/report.
--- NOTE | 2024-03-07 13:27 | XRAY ---
Indication: Left piriformis injection. Intraoperative fluoroscopy provided for 8 seconds. Single digital spot image submitted for interpretation demonstrate posterior needle tip projecting over the left piriformis. Small amount of contrast injected for needle tip placement. Correlate with intraoperative findings/report.
--- NOTE | 2024-03-07 14:13 | XRAY ---
24 seconds of fluoroscopy was used in surgery for a left L4-S1 transforaminal LUIS.
--- NOTE | 2024-03-07 14:14 | XRAY ---
8 seconds of fluoroscopy was used in surgery for a left piriformis injection.
== END 2024-03-07 11:45 | disposition home or self-care (01) ==
LOC: SDC-PAIN 09:12
PROVIDERS: ATTEND Psychiatry & Neurology Pain Medicine
DX: M54.16 Radiculopathy, lumbar region (principal); M79.18 Myalgia, other site
CPT/HCPCS: 20552; 64483; 64484; 72100; 72170; 76942; 77002; 77003; 99100; J1100; J2001; J2704; Q9966

== ENCOUNTER 2024-04-18 10:32 | Day surgery (SDC) | payer MEDICARE, OTHER ==
[2024-04-18] MEDS ORDERED: Xylocaine-Mpf 2% 5 Ml Vial IJ ONE (10:33)
[2024-04-18] MEDS ORDERED: Depo-Medrol 40 MG/ML IM ONE (10:33)
[2024-04-18] MEDS ORDERED: DIPRIVAN 200 MG/20 ML IV ONE (12:14)
[2024-04-18] MEDS ORDERED: Lactated Ringers 1,000 ML IV ONE (12:51)
--- NOTE | 2024-04-18 13:57 | XRAY ---
Indication: Bilateral L4-S1 MBB. Intraoperative fluoroscopy provided for 11 seconds. 2 digital spot image submitted for interpretation demonstrates posterior needle tips projecting over the expected left and right L4-S1 nerve roots. Correlate with intraoperative findings/report.
--- NOTE | 2024-04-18 14:21 | XRAY ---
11 seconds of fluoroscopy was used in surgery for a bilateral L4-S1 MBB.
== END 2024-04-18 12:50 | disposition home or self-care (01) ==
LOC: SDC-PAIN 10:32
PROVIDERS: ATTEND Psychiatry & Neurology Pain Medicine
DX: M47.816 Spondylosis without myelopathy or radiculopathy, lumbar region (principal)
CPT/HCPCS: 64493; 64494; 72020; 77002; J2704

== ENCOUNTER 2024-05-16 09:41 | Day surgery (SDC) | payer MEDICARE, OTHER ==
[2024-05-16] MEDS ORDERED: Depo-Medrol 40 MG/ML IM ONE (09:42)
[2024-05-16] MEDS ORDERED: BUPIVACAINE 0.5% VIAL IJ ONE (09:42)
[2024-05-16] MEDS ORDERED: DIPRIVAN 200 MG/20 ML IV ONE (11:40)
--- NOTE | 2024-05-16 13:08 | XRAY ---
Indication: Bilateral L4-S1 MBB. Intraoperative fluoroscopy was provided for 6 seconds. Single digital spot image submitted for interpretation demonstrates posterior needle tips projecting over the expected left and right L4-S1 nerve roots. Correlate with intraoperative findings/report.
--- NOTE | 2024-05-16 14:06 | XRAY ---
6 seconds of fluoroscopy was used in surgery for a bilateral L4-S1 MBB.
[2024-05-16] MEDS ORDERED: Lactated Ringers 1,000 ML IV ONE (14:18)
== END 2024-05-16 12:20 ==
LOC: SDC-PAIN 09:41
PROVIDERS: ATTEND Psychiatry & Neurology Pain Medicine
DX: M47.816 Spondylosis without myelopathy or radiculopathy, lumbar region (principal); R73.03 Prediabetes
CPT/HCPCS: 64493; 64494; 72020; 77002; 82947; J2704

== ENCOUNTER 2024-07-05 08:59 | Day surgery (SDC) | payer MEDICARE, OTHER ==
[2024-07-05] MEDS ORDERED: BUPIVACAINE 0.5% VIAL IJ ONE (09:00)
[2024-07-05] MEDS ORDERED: Depo-Medrol 40 MG/ML IM ONE (09:00)
[2024-07-05] MEDS ORDERED: LIDOCAINE HCL 1% AMPUL 5 ML IJ ONE (09:00)
[2024-07-05] MEDS ORDERED: DIPRIVAN 200 MG/20 ML IV ONE (10:15)
--- NOTE | 2024-07-05 11:46 | XRAY ---
Indication: Left L4-S1 RFA. Intraoperative fluoroscopy provided for 16 seconds. 3 digital spot image submitted for interpretation demonstrates posterior needle tips projecting over the expected left L4-S1 nerve roots. Correlate with intraoperative findings/report.
--- NOTE | 2024-07-05 11:54 | XRAY ---
16 seconds of fluoroscopy was used in surgery for a left L4-S1 RFA.
== END 2024-07-05 10:46 | disposition home or self-care (01) ==
LOC: SDC-PAIN 08:59
PROVIDERS: ATTEND Psychiatry & Neurology Pain Medicine
DX: M47.817 Spondylosis without myelopathy or radiculopathy, lumbosacral region (principal)
CPT/HCPCS: 64635; 64636; 72100; 77002; 82947; 99100; J2704

== ENCOUNTER 2024-07-19 10:49 | Day surgery (SDC) | payer MEDICARE, OTHER ==
[2024-07-19] MEDS ORDERED: BUPIVACAINE 0.5% VIAL IJ ONE (10:50)
[2024-07-19] MEDS ORDERED: Depo-Medrol 40 MG/ML IM ONE (10:50)
[2024-07-19] MEDS ORDERED: LIDOCAINE HCL 1% AMPUL 5 ML IJ ONE (10:50)
[2024-07-19] MEDS ORDERED: DIPRIVAN 200 MG/20 ML IV ONE (12:07)
--- NOTE | 2024-07-19 14:43 | XRAY ---
Indication: Right L4-S1 RFA. Intraoperative fluoroscopy provided for 19 seconds. 5 digital spot image submitted for interpretation demonstrates posterior needle tips projecting over expected right L4-S1 nerve roots. Correlate with intraoperative findings/report.
--- NOTE | 2024-07-19 14:45 | XRAY ---
19 seconds of fluoroscopy was used in surgery for a right L4-S1 RFA.
== END 2024-07-19 12:47 | disposition home or self-care (01) ==
LOC: SDC-PAIN 10:49
PROVIDERS: ATTEND Psychiatry & Neurology Pain Medicine
DX: M47.816 Spondylosis without myelopathy or radiculopathy, lumbar region (principal); R73.03 Prediabetes
CPT/HCPCS: 64635; 64636; 72100; 77002; 82947; 99100; J2704

== ENCOUNTER 2025-05-26 11:28 | Observation (INO) | payer MEDICARE ==
[2025-05-26 12:35] LABS: BASOPHIL % 0.4 % (0.1-1.2); Basophil (Absolute #) 0.04 x10^3/uL (0.01-0.08); Eosinophil (Absolute #) 0.10 x10^3/uL (0.04-0.36); Hematocrit 41.7 % (34.1-44.9); Hemoglobin 13.3 g/dL (11.2-15.7); IMMATURE GRAN # 0.04 x10^3u/L (0.001-0.031); IMMATURE GRAN % 0.4 % (0.001-0.429); Lymphocyte (Absolute #) 1.28 x10^3/uL (1.18-3.74); Mean Corpuscular Hemoglobin 30.0 pg (25.6-32.2); Mean Corpuscular Hgb Concent. 31.9 g/dL (32.2-35.5); Monocyte (Absolute #) 0.78 x10^3/uL (0.24-0.86); NUCLEATED RBC # 0.00 x10^3u/L (0.00-0.012); NUCLEATED RBC % 0.0 % (0.00-0.2); Platelet Count 168 x10^3/uL (182-369); Red Blood Count 4.43 x10^6/uL (3.93-5.22); White Blood Count 9.7 x10^3/uL (3.98-10.04)
[2025-05-26 12:45] LABS: Glucose, Urine Negative (Negative); Protein,Urine Dip 30 (Negative); RBC 0-2 /HPF (0-5); WBC 0-2 /HPF (0-5)
[2025-05-26 13:00] LABS: Calcium 9.8 mg/dL (8.4-10.2); Carbon Dioxide 24.0 mmol/L (22-30); Creatinine 1 0.54 mg/dL (0.52-1.04); EST GLOMERULAR FILTRATION RATE 90.2 ML/MIN; Glucose 164.0 mg/dL (74-106); NT PRO BNPII 988.0 pg/mL (<300); Potassium 4.0 mmol/L (3.5-5.1); SGOT/AST 37.0 U/L (14-36); SGPT/ALT 30.0 U/L (0-35); Total Protein 6.4 g/dL (6.3-8.2)
[2025-05-26] MEDS ORDERED: Zofran 4 MG/2 ML VIAL ONE (13:03)
[2025-05-26] MEDS: Zofran 4 MG/2 ML VIAL IV ONE (13:04)
--- NOTE | 2025-05-26 13:52 | ERPHSYRPT ---
- History of Present Illness Time Seen by Provider: 05/26/25 13:47 Source: patient Exam Limitations: no limitations Patient Subjective Stated Complaint: patient stated that when she woke up this morning she went to walk to the kitchen and she started seeing white and then passed out while standing in the kitchen, patient stated she thinks she may have a uti Triage Nursing Assessment: patient presents to ed via ems, patient alert and oriented x 4, patient denies chest pain/sob, patient's skin n/w/d, denies dizziness/lightheadedness at this time Physician History: Patient is a 85-year-old female history of hypertension hyperlipidemia COPD hypothyroidism pacemaker defibrillator implanted in 2019 presents to our ED via EMS for evaluation of syncope. Patient states she awoke this morning walked to the kitchen started seeing white and "passed out". Patient states she fell to the floor. No neck pain. Cervical spine cleared clinically. No associated chest pain or shortness of breath. No nausea vomiting or diaphoresis. No associated numbness tingling or weakness. Patient currently feels well. She believes she may have a urinary tract infection secondary to dysuria. Patient voices no other complaints or concerns at this time. Portions of this note were created with voice recognition technology. There may be grammatical, spelling, punctuation or sound alike errors Timing/Duration: today Severity: moderate Modifying Factors: Improves With: nothing Associated Symptoms: denies symptoms Allergies/Adverse Reactions: No Known Drug Allergies Allergy (Verified 05/26/25 11:44) Home Medications: Levothyroxine Sodium [Synthroid] 112 mcg PO DAILY 04/18/12 [History] Zolpidem Tartrate 10 mg [Ambien 10 MG] 5 mg PO HS 04/18/12 [History] Duloxetine HCl 30 mg [Cymbalta 30 MG Capsule] 60 mg PO DAILY 01/02/18 [History] Omeprazole 20 MG [Prilosec 20 mg] 20 mg HS 01/02/18 [History] Montelukast Sodium 10 mg [Singulair 10 MG] 10 mg PO HS 01/10/21 [History] Oxybutynin Chloride Xl 5 mg [Ditropan XL 5 MG] 5 mg PO BID 01/10/21 [History] carvediloL [Coreg] 25 mg PO BID 01/10/21 [History] Apixaban [Eliquis] 5 mg PO BID 07/26/21 [History] Sacubitril/Valsartan [Entresto 97 mg-103 mg Tablet] 1 tab PO BID 07/26/21 [History] Cetirizine HCl [Zyrtec] 10 mg PO HS 10/06/22 [History] Empagliflozin [Jardiance] 10 mg PO DAILY 10/06/22 [History] Ezetimibe 10 mg [Zetia 10 MG] 10 mg PO DAILY 10/06/22 [History] Spironolactone 25 mg [Aldactone 25 MG] 12.5 mg PO DAILY 10/06/22 [History] Hx Tetanus, Diphtheria Vaccination/Date Given: Yes Hx Influenza Vaccination/Date Given: Yes Hx Pneumococcal Vaccination/Date Given: Yes Travel Risk - International Travel Have you traveled outside of the country in past 3 weeks: No - Emerging Infectious Disease Are you exhibiting symptoms associated with any current EIDs: No - Review of Systems All Other Systems: Reviewed and Negative - Past Medical History Pertinent Past Medical History: Yes Neurological History: No Pertinent History ENT History: Cataracts Cardiac History: Arrhythmia, High Cholesterol, Hypertension, Other Respiratory History: COPD Endocrine Medical History: Hypothyroidism Musculoskeletal History: Osteoarthritis, Other GI Medical History: GERD History: No Pertinent History Psycho-Social History: Anxiety Female Reproductive Disorders: No Pertinent History Other Medical History: HX OF ELBOW SURGERY FOR RADIAL TUNNEL RIGHT 1983. PACEMAKER/DEFIBRILLATOR 08/2019 and replaced 2024, FIBROMYALGIA - Past Surgical History Past Surgical History: Yes Neuro Surgical History: No Pertinent History Cardiac: No Pertinent History, Internal Defibrillator, Pacemaker Respiratory: No Pertinent History Gastrointestinal: Appendectomy, Cholecystectomy Genitourinary: No Pertinent History Musculoskeletal: Other Female Surgical History: No Pertinent History Other Surgical History: breast biopsy. radial tunnel surgery on right arm. PACEMAKER/DEFIBRILLATOR 08/2019 Significant Family History: no pertinent family hx - Social History Smoking Status: Never smoker Exposure to second hand smoke: No Drug Use: none - Social Determinants of Health Will the patient participate in the screening: Yes Do you worry about a steady place to live?: No Do you have any problems with any of the following?: No known problems In the past 12 months,have you had to go without utilities?: No Transportation Issues: No Has anyone in your support network made you feel unsafe?: No Have you or anyone in your house had to go w/o enough food: No - Nursing Vital Signs Nursing Vital Signs: Initial Vital Signs Temperature 97 F 05/26/25 11:29 Pulse Rate 86 05/26/25 11:29 Respiratory Rate 16 05/26/25 11:29 Blood Pressure 100/67 05/26/25 11:29 O2 Sat by Pulse Oximetry 99 05/26/25 11:29 Pain Scale Pain Intensity 0 - Physical Exam General Appearance: no apparent distress, alert Eye Exam: PERRL/EOMI, eyes nml inspection Ears, Nose, Throat Exam: normal ENT inspection, TMs normal, pharynx normal, moist mucous membranes Neck Exam: normal inspection, non-tender, supple, full range of motion Respiratory Exam: normal breath sounds, lungs clear, airway intact, No respiratory distress Cardiovascular Exam: regular rate/rhythm, normal heart sounds, normal peripheral pulses Gastrointestinal/Abdomen Exam: soft, normal bowel sounds, No tenderness, No mass Back Exam: normal inspection, normal range of motion, No CVA tenderness, No vertebral tenderness Extremity Exam: normal inspection, normal range of motion, pelvis stable, other (Tenderness right elbow. However patient states she does not need an x-ray. She is able to move her elbow through full range of motion with minimal discomfort.) Neurologic Exam: alert, oriented x 3, cooperative, normal mood/affect, sensation nml, No motor deficits, No facial droop, No slurred speech Skin Exam: normal color, warm, dry, No rash Lymphatic Exam: No adenopathy SpO2 Interpretation: normal SpO2: 93 O2 Delivery: Room Air - Course Nursing assessment & vital signs reviewed: Yes EKG Interpreted by Me: RATE (87), NORMAL AXIS, NORMAL INTERVALS, NORMAL QRS (Atrial sensed ventricular paced rhythm) - CT Exams Head CT Interpretation: Tele-radiologist Report (Chronic microvascular ischemia no acute process observed) Ordered Tests: Active Orders 24 hr Category Date Time Status Clothespin Drier Operator STAT Care 05/26/25 12:05 Active EKG-ER Only STAT Care 05/26/25 12:05 Active IV Insertion STAT Care 05/26/25 12:05 Active Pulse Oximetry (ED) STAT Care 05/26/25 12:05 Active HEAD WITHOUT CONTRAST [CT] Stat Exams 05/26/25 12:10 Completed CBC W DIFF Stat Lab 05/26/25 12:30 Completed CMP Stat Lab 05/26/25 12:30 Completed Lactic Acid Stat Lab 05/26/25 12:29 Completed Lactic Acid Stat Lab 05/26/25 14:31 Completed NT PRO BNPII Stat Lab 05/26/25 12:30 Completed TROPONIN Q4H Lab 05/26/25 12:30 Completed TROPONIN Q4H Lab 05/26/25 14:25 Completed TROPONIN Q4H Lab 05/26/25 20:15 Ordered UA W/RFX UR CULTURE Stat Lab 05/26/25 10:51 Completed Transfer Order Routine Transfer 05/26/25 Ordered Medication Summary Discontinued Medications Generic Name Dose Route Start Last Admin Trade Name Freq PRN Reason Stop Dose Admin Lactated Ringer's 1,000 mls @ 999 mls/hr 05/26/25 13:52 05/26/25 14:10 Lactated Ringers IV 05/26/25 14:52 999 mls/hr .Q1H1M ONE Administration Lactated Ringer's Confirm 05/26/25 14:09 Lactated Ringers Administered 05/26/25 14:10 Dose 1,000 mls @ ud IV .STK-MED ONE Ondansetron HCl 4 mg 05/26/25 13:02 05/26/25 13:04 Ondansetron Hcl 4 Mg/2 Ml Vial IV 05/26/25 13:03 4 mg STAT ONE Administration Ondansetron HCl Confirm 05/26/25 13:03 Ondansetron Hcl 4 Mg/2 Ml Vial Administered 05/26/25 13:04 Dose 4 mg .ROUTE .STK-MED ONE Lab/Rad Data: Laboratory Result Diagrams 05/26/25 12:30 05/26/25 12:30 Laboratory Results 05/26/25 05/26/25 05/26/25 Range/Units 14:31 14:25 12:30 WBC (3.98-10.04) x10^3/uL RBC (3.93-5.22) x10^6/uL Hgb (11.2-15.7) g/dL Hct (34.1-44.9) % MCV (79.4-94.8) fL MCH (25.6-32.2) pg MCHC (32.2-35.5) g/dL RDW (11.7-14.4) % Plt Count (182-369) x10^3/uL MPV (9.4-12.3) fL Gran % (34.0-71.1) % Immature Gran % (Auto) (0.001-0.429) % Nucleat RBC Rel Count (0.00-0.2) % Eos # (Auto) (0.04-0.36) x10^3/uL Immature Gran # (Auto) (0.001-0.031) x10^3u/L Absolute Lymphs (auto) (1.18-3.74) x10^3/uL Absolute Monos (auto) (0.24-0.86) x10^3/uL Absolute Nucleated RBC (0.00-0.012) x10^3u/L Lymphocytes % (19.3-51.7) % Monocytes % (4.7-12.5) % Eosinophils % (0.7-5.8) % Basophils % (0.1-1.2) % Absolute Granulocytes (1.56-6.13) x10^3/uL Basophils # (0.01-0.08) x10^3/uL Sodium (135-145) mmol/L Potassium (3.5-5.1) mmol/L Chloride (98-107) mmol/L Carbon Dioxide (22-30) mmol/L Anion Gap (5-15) MEQ/L BUN (7-17) mg/dL Creatinine (0.52-1.04) mg/dL Estimated GFR ML/MIN Glucose (74-106) mg/dL Lactic Acid 1.9 (0.4-2.0) Calcium (8.4-10.2) mg/dL Total Bilirubin (0.2-1.3) mg/dL AST (14-36) U/L ALT (0-35) U/L Alkaline Phosphatase (38-126) U/L Troponin I 0.031 0.029 (0.000-0.033) ng/mL NT-Pro-B Natriuret Pep (<300) pg/mL Serum Total Protein (6.3-8.2) g/dL Albumin (3.5-5.0) g/dL Urine Color (Yellow) Urine Appearance (Clear) Urine pH (4.6-8.0) Ur Specific [place] (1.005-1.030) Urine Protein (Negative) Urine Glucose (UA) (Negative) mg/dL Urine Ketones (Negative) Urine Blood (Negative) Urine Nitrite (Negative) Urine Bilirubin (Negative) Urine Urobilinogen (0.2) mg/dL Ur Leukocyte Esterase (Negative) U Hyaline Cast (Auto) (0-2) /LPF Urine Microscopic RBC (0-5) /HPF Urine Microscopic WBC (0-5) /HPF Ur Epithelial Cells (None Seen) /HPF Urine Bacteria (None Seen) /HPF Urine Culture Reflexed (NO) 05/26/25 05/26/25 05/26/25 Range/Units 12:30 12:30 12:29 WBC 9.7 (3.98-10.04) x10^3/uL RBC 4.43 (3.93-5.22) x10^6/uL Hgb 13.3 (11.2-15.7) g/dL Hct 41.7 (34.1-44.9) % MCV 94.1 (79.4-94.8) fL MCH 30.0 (25.6-32.2) pg MCHC 31.9 L (32.2-35.5) g/dL RDW 14.2 (11.7-14.4) % Plt Count 168 L (182-369) x10^3/uL MPV 9.7 (9.4-12.3) fL Gran % 77.0 H (34.0-71.1) % Immature Gran % (Auto) 0.4 (0.001-0.429) % Nucleat RBC Rel Count 0.0 (0.00-0.2) % Eos # (Auto) 0.10 (0.04-0.36) x10^3/uL Immature Gran # (Auto) 0.04 H (0.001-0.031) x10^3u/L Absolute Lymphs (auto) 1.28 (1.18-3.74) x10^3/uL Absolute Monos (auto) 0.78 (0.24-0.86) x10^3/uL Absolute Nucleated RBC 0.00 (0.00-0.012) x10^3u/L Lymphocytes % 13.2 L (19.3-51.7) % Monocytes % 8.0 (4.7-12.5) % Eosinophils % 1.0 (0.7-5.8) % Basophils % 0.4 (0.1-1.2) % Absolute Granulocytes 7.46 H (1.56-6.13) x10^3/uL Basophils # 0.04 (0.01-0.08) x10^3/uL Sodium 142 (135-145) mmol/L Potassium 4.0 (3.5-5.1) mmol/L Chloride 107 (98-107) mmol/L Carbon Dioxide 24 (22-30) mmol/L Anion Gap 14.1 (5-15) MEQ/L BUN 13 (7-17) mg/dL Creatinine 0.54 (0.52-1.04) mg/dL Estimated GFR 90.2 ML/MIN Glucose 164 H (74-106) mg/dL Lactic Acid 2.7 H (0.4-2.0) Calcium 9.8 (8.4-10.2) mg/dL Total Bilirubin 1.20 (0.2-1.3) mg/dL AST 37 H (14-36) U/L ALT 30 (0-35) U/L Alkaline Phosphatase 99 (38-126) U/L Troponin I (0.000-0.033) ng/mL NT-Pro-B Natriuret Pep 988 (<300) pg/mL Serum Total Protein 6.4 (6.3-8.2) g/dL Albumin 4.1 (3.5-5.0) g/dL Urine Color (Yellow) Urine Appearance (Clear) Urine pH (4.6-8.0) Ur Specific [place] (1.005-1.030) Urine Protein (Negative) Urine Glucose (UA) (Negative) mg/dL Urine Ketones (Negative) Urine Blood (Negative) Urine Nitrite (Negative) Urine Bilirubin (Negative) Urine Urobilinogen (0.2) mg/dL Ur Leukocyte Esterase (Negative) U Hyaline Cast (Auto) (0-2) /LPF Urine Microscopic RBC (0-5) /HPF Urine Microscopic WBC (0-5) /HPF Ur Epithelial Cells (None Seen) /HPF Urine Bacteria (None Seen) /HPF Urine Culture Reflexed (NO) 05/26/25 Range/Units 10:51 WBC (3.98-10.04) x10^3/uL RBC (3.93-5.22) x10^6/uL Hgb (11.2-15.7) g/dL Hct (34.1-44.9) % MCV (79.4-94.8) fL MCH (25.6-32.2) pg MCHC (32.2-35.5) g/dL RDW (11.7-14.4) % Plt Count (182-369) x10^3/uL MPV (9.4-12.3) fL Gran % (34.0-71.1) % Immature Gran % (Auto) (0.001-0.429) % Nucleat RBC Rel Count (0.00-0.2) % Eos # (Auto) (0.04-0.36) x10^3/uL Immature Gran # (Auto) (0.001-0.031) x10^3u/L Absolute Lymphs (auto) (1.18-3.74) x10^3/uL Absolute Monos (auto) (0.24-0.86) x10^3/uL Absolute Nucleated RBC (0.00-0.012) x10^3u/L Lymphocytes % (19.3-51.7) % Monocytes % (4.7-12.5) % Eosinophils % (0.7-5.8) % Basophils % (0.1-1.2) % Absolute Granulocytes (1.56-6.13) x10^3/uL Basophils # (0.01-0.08) x10^3/uL Sodium (135-145) mmol/L Potassium (3.5-5.1) mmol/L Chloride (98-107) mmol/L Carbon Dioxide (22-30) mmol/L Anion Gap (5-15) MEQ/L BUN (7-17) mg/dL Creatinine (0.52-1.04) mg/dL Estimated GFR ML/MIN Glucose (74-106) mg/dL Lactic Acid (0.4-2.0) Calcium (8.4-10.2) mg/dL Total Bilirubin (0.2-1.3) mg/dL AST (14-36) U/L ALT (0-35) U/L Alkaline Phosphatase (38-126) U/L Troponin I (0.000-0.033) ng/mL NT-Pro-B Natriuret Pep (<300) pg/mL Serum Total Protein (6.3-8.2) g/dL Albumin (3.5-5.0) g/dL Urine Color Yellow (Yellow) Urine Appearance Clear (Clear) Urine pH 6.0 (4.6-8.0) Ur Specific [place] 1.015 (1.005-1.030) Urine Protein 30 (Negative) Urine Glucose (UA) Negative (Negative) mg/dL Urine Ketones 15 A (Negative) Urine Blood Negative (Negative) Urine Nitrite Negative (Negative) Urine Bilirubin Negative (Negative) Urine Urobilinogen 1.0 A (0.2) mg/dL Ur Leukocyte Esterase Trace A (Negative) U Hyaline Cast (Auto) 3-5 A (0-2) /LPF Urine Microscopic RBC 0-2 (0-5) /HPF Urine Microscopic WBC 0-2 (0-5) /HPF Ur Epithelial Cells Rare (None Seen) /HPF Urine Bacteria None Seen (None Seen) /HPF Urine Culture Reflexed NO (NO) - Progress Progress: improved Progress Note: Patient is a 85-year-old female history of hypertension hyperlipidemia COPD hypothyroidism pacemaker defibrillator implanted in 2019 presents to our ED via EMS for evaluation of syncope. Physical exam reveals tenderness at the right elbow. Patient declined an x-ray. Physical exam otherwise unremarkable. No focal or lateralizing symptomology. CT head negative for acute intracranial pathology. Troponin negative x 2. Laboratory workup nonremarkable. Patient will be admitted for further evaluation and treatment. Portions of this note were created with voice recognition technology. There may be grammatical, spelling, punctuation or sound alike errors Differential diagnosis includes syncope, TIA, cardiac dysrhythmia History obtained from patient, daughter who is at the bedside and EMS 05/26/25 13:50 Case discussed with hospitalist Dr. Torres who accepts admission to observation at 2:27 PM pending second troponin.. Plan of care discussed with patient and her daughter who is at the bedside. They agree admission to [facility] for further evaluation and treatment. Complexity of problems addressed is moderate acute complicated. No critical care time. Complex of data reviewed and analyzed as extensive. Test ordered chest reviewed results analyzed and correlated clinically with history and physical exam. Risk of complication at risk of morbidity/mortality of patient management is high. Patient requires hospitalization for further evaluation and treatment. Vital stable. Time spent to admit patient is approximately 20 minutes. Plan of care established for shared decision making. No social determinants of health present to impede follow-up. Portions of this note were created with voice recognition technology. There may be grammatical, spelling, punctuation or sound alike errors 05/26/25 15:07 Counseled pt/family regarding: lab results, diagnosis, rad results - Departure Departure Disposition: Observation Clinical Impression: Syncope and collapse, Lactic acidosis Condition: Stable Critical Care Time: No Referrals: GARCIA RDZ MD [Primary Care Provider, [facility]] - Follow up/PCP as directed
--- NOTE | 2025-05-26 13:55 | XRAY ---
CLINICAL HISTORY: syncope COMPARISON: None. TECHNIQUE: Axial non-contrast CT scan of the brain was performed from the skull base to the high parietal region. One of the following dose reduction techniques was utilized for this exam: automated exposure control, adjustment of the mA and/or kV according to patient size, or use of iterative reconstruction. CTDI: , DLP: FINDINGS: Brain Parenchyma: There is no evidence of recent territorial infarct, hemorrhage, or mass effect. Mildly exaggerated deep white matter hypodensities are most prominent along both periventricular regions, suggesting chronic microvascular ischemic changes. Ventricular System: The supratentorial and infratentorial ventricular systems are mildly dilated and maintain normal configuration, likely as part of the involutional process. Subarachnoid Spaces: There is no evidence of subarachnoid hemorrhage or extra-axial fluid collections. Mildly exaggerated cortical sulci, Sylvian fissures, and extra-axial CSF spaces are noted. Cerebellum and Brainstem: There are no masses, lesions, or areas of abnormal density. Orbits: The globes, optic nerves, and extraocular muscles are normal in appearance. There is no evidence of orbital masses or abnormal density. Sinuses: The paranasal sinuses are clear. There is no evidence of sinusitis or mucosal thickening. Mastoid Air Cells: The mastoid air cells are clear. There is no evidence of mastoiditis. Skull: Skull morphology is normal. There is no evidence of fractures or depressed bone fragments. Hyperostosis frontalis interna is present. IMPRESSION: 1. There is no evidence of acute hemorrhage or osseous fractures. 2. There is no evidence of recent territorial ischemic insult by non-contrast CT criteria, taking into consideration that early changes of stroke may not be detected on a CT scan. If there is a strong clinical suspicion of stroke, MRI with diffusion-weighted imaging is suggested. 3. Cortical and central age-related brain involutional changes are noted. 4. The CT picture is suggestive of chronic ischemic deep white matter changes as described. Electronically Signed by: Saroj Ladd MD. (05/26/2025 13:54:15 EDT)
[2025-05-26] MEDS ORDERED: Lactated Ringers 1,000 ML IV ONE (14:09)
[2025-05-26] MEDS: Lactated Ringers 1,000 ML IV ONE (14:10)
--- NOTE | 2025-05-26 16:05 | PCM.HP ---
<PROSPER BLUE - Last Filed: 05/26/25 16:44> History of Present Illness - Chief Complaint Chief Complaint: Syncope Date: 05/26/25 History of Present Illness: is a 85 year old female with a past medical history of atrial fibrillation (on Eliquis), hypertension, hyperlipidemia, COPD, hypothyroidism, gastroesophageal reflux disease, and arrhythmia with pacemaker-defibrillator presented to the emergency department 05/26/25 following a syncopal episode at home. This morning, while lying in bed, the patient experienced upper back pain accompanied by dizziness. She elina to obtain water, paused while seated at the edge of the bed, then attempted to stand but became unsteady and collapsed. She described a generalized sensation of feeling out of sorts preceding the event. She denied chest pain, palpitations, nausea, vomiting, or diaphoresis. Patient reports she had a similar episode when she had covid. She also endorsed new bladder pressure without dysuria and reported a cough over the past several days. Family members who discovered her shortly after the syncopal episode observed a right-sided facial droop and bilateral lower extremity weakness. Back pain has resolved. On arrival to the ED, vital signs were stable. EKG demonstrated normal sinus rhythm with ventricularly paced rhythm, normal axis, and preserved intervals, without evidence of acute ischemia or arrhythmia. Head CT was negative for acute intracranial hemorrhage, fracture, or acute ischemia; however, chronic cortical and central atrophy with chronic ischemic white matter disease was noted. Laboratory studies revealed an elevated lactate of 2.7 , which normalized to 1.9 after IV fluid resuscitation. BNP was elevated at 988. Platelet count was 168 . Urinalysis showed trace leukocytes and ketones without definitive evidence of infection. Troponin was within normal limits x 2. She was given 1 liter of lactated Ringers and Zofran in the ED with clinical improvement. - Review of Systems Constitutional: Weakness Eyes: No Symptoms Ears, Nose, & Throat: No Symptoms Respiratory: Cough, Short Of Breath Cardiac: No Symptoms Abdominal/Gastrointestinal: No Symptoms Genitourinary Symptoms: Other (pressure) Musculoskeletal: Back Pain Skin: No Symptoms Neurological: Dizziness, Focal Weakness, Gait Changes Psychological: No Symptoms Endocrine: No Symptoms Hematologic/Lymphatic: No Symptoms Immunological/Allergic: No Symptoms Medications & Allergies Home Medications: Home Medication List Levothyroxine Sodium [Synthroid] 150 mcg PO DAILY 04/18/12 [History Confirmed 05/26/25] Zolpidem Tartrate 10 mg [Ambien 10 MG] 5 mg PO HS 04/18/12 [History Confirmed 05/26/25] Omeprazole 20 MG [Prilosec 20 mg] 20 mg HS 01/02/18 [History Confirmed 05/26/25] Montelukast Sodium 10 mg [Singulair 10 MG] 10 mg PO HS 01/10/21 [History Confirmed 05/26/25] Oxybutynin Chloride Xl 5 mg [Ditropan XL 5 MG] 5 mg PO BID 01/10/21 [History Confirmed 05/26/25] carvediloL [Coreg] 25 mg PO BID 01/10/21 [History Confirmed 05/26/25] Apixaban [Eliquis] 5 mg PO BID 07/26/21 [History Confirmed 05/26/25] Sacubitril/Valsartan [Entresto 97 mg-103 mg Tablet] 1 tab PO BID 07/26/21 [History Confirmed 05/26/25] Cetirizine HCl [Zyrtec] 10 mg PO HS 10/06/22 [History Confirmed 05/26/25] Ezetimibe 10 mg [Zetia 10 MG] 10 mg PO HS 10/06/22 [History Confirmed 05/26/25] Albuterol 8 gm Mdi Hfa [Ventolin Hfa MDI] 2 puff IH QID 05/26/25 [History Confirmed 05/26/25] Budesonide/Formoterol Fumarate [Budesonide-Formoterol 160-4.5] 2 puff IH BID 05/26/25 [History Confirmed 05/26/25] Cyanocobalamin 1000 Mcg/ml [Cyanocobalamin B-12 1000 MCG/ML] 1,000 mcg SQ UD 05/26/25 [History Confirmed 05/26/25] Duloxetine HCl 60 mg PO QAM 05/26/25 [History Confirmed 05/26/25] Spironolactone 25 mg [Aldactone 25 MG] 12.5 mg PO DAILY 05/26/25 [History Confirmed 05/26/25] Allergies/Adverse Reactions: Allergies Allergy/AdvReac Type Severity Reaction Status Date / Time No Known Drug Allergies Allergy Verified 05/26/25 11:44 - Past Medical History Past Medical History: Yes Neurological History: No Pertinent History ENT History: Cataracts Cardiac History: Arrhythmia, High Cholesterol, Hypertension, Other Respiratory History: COPD Endocrine Medical History: Hypothyroidism Musculoskelatal History: Osteoarthritis, Other GI Medical History: GERD History: No Pertinent History Pyscho-Social History: Anxiety Reproductive Disorders: No Pertinent History Comment: HX OF ELBOW SURGERY FOR RADIAL TUNNEL RIGHT 1984. PACEMAKER/DEFIBRILLATOR 08/2019 and replaced 2024, FIBROMYALGIA - Past Surgical History Past Surgical History: Yes Neuro Surgical History: No Pertinent History Cardiac History: No Pertinent History, Internal Defibrillator, Pacemaker Respiratory Surgery: No Pertinent History GI Surgical History: Appendectomy, Cholecystectomy Genitourinary Surgical Hx: No Pertinent History Musculskeletal Surgical Hx: Other Female Surgical History: No Pertinent History Other Surgical History: breast biopsy. radial tunnel surgery on right arm. PACEMAKER/DEFIBRILLATOR 08/2019 Significant Family History: diabetes - Social History Smoking Status: Never smoker Exposure to second hand smoke: No Alcohol: None Drug Use: none - Social Determinants of Health Will the patient participate in the screening: Yes Do you worry about a steady place to live?: No Do you have any problems with any of the following?: No known problems In the past 12 months,have you had to go without utilities?: No Have you or anyone in your house had to go without enough: No Transportation Issues: No Has anyone in your support network made you feel unsafe?: No - Physical Exam Vital Signs: Vital Signs - 24 hr Temp Pulse Resp BP BP Pulse Ox 05/26/25 15:30 83 22 143/70 95 05/26/25 15:10 93 L 05/26/25 15:00 84 22 121/80 96 05/26/25 14:30 85 15 139/77 97 05/26/25 14:00 82 21 106/84 97 05/26/25 13:30 86 22 124/64 96 05/26/25 13:13 83 18 95/72 93 L 05/26/25 13:10 86 15 120/62 94 L 05/26/25 13:00 85 12 94 L 05/26/25 12:58 94 L 05/26/25 12:05 98 05/26/25 11:29 97 F 86 16 100/67 99 General Appearance: no apparent distress Neurologic Exam: alert, oriented x 3, cooperative Eye Exam: PERRL/EOMI Ears, Nose, Throat Exam: normal ENT inspection Neck Exam: normal inspection Respiratory Exam: normal breath sounds, lungs clear Cardiovascular Exam: regular rate/rhythm, normal heart sounds Pelvic Exam: not done Rectal Exam: deferred Back Exam: normal inspection Extremity Exam: normal inspection Skin Exam: pale Results - Labs Lab/Micro Results: Lab Results-Last 24 Hours 05/26/25 05/26/25 05/26/25 Range/Units 10:51 12:29 12:30 WBC 9.7 (3.98-10.04) x10^3/uL RBC 4.43 (3.93-5.22) x10^6/uL Hgb 13.3 (11.2-15.7) g/dL Hct 41.7 (34.1-44.9) % MCV 94.1 (79.4-94.8) fL MCH 30.0 (25.6-32.2) pg MCHC 31.9 L (32.2-35.5) g/dL RDW 14.2 (11.7-14.4) % Plt Count 168 L (182-369) x10^3/uL MPV 9.7 (9.4-12.3) fL Gran % 77.0 H (34.0-71.1) % Immature Gran % (Auto) 0.4 (0.001-0.429) % Nucleat RBC Rel Count 0.0 (0.00-0.2) % Eos # (Auto) 0.10 (0.04-0.36) x10^3/uL Immature Gran # (Auto) 0.04 H (0.001-0.031) x10^3u/L Absolute Lymphs (auto) 1.28 (1.18-3.74) x10^3/uL Absolute Monos (auto) 0.78 (0.24-0.86) x10^3/uL Absolute Nucleated RBC 0.00 (0.00-0.012) x10^3u/L Lymphocytes % 13.2 L (19.3-51.7) % Monocytes % 8.0 (4.7-12.5) % Eosinophils % 1.0 (0.7-5.8) % Basophils % 0.4 (0.1-1.2) % Absolute Granulocytes 7.46 H (1.56-6.13) x10^3/uL Basophils # 0.04 (0.01-0.08) x10^3/uL Sodium (135-145) mmol/L Potassium (3.5-5.1) mmol/L Chloride (98-107) mmol/L Carbon Dioxide (22-30) mmol/L Anion Gap (5-15) MEQ/L BUN (7-17) mg/dL Creatinine (0.52-1.04) mg/dL Estimated GFR ML/MIN Glucose (74-106) mg/dL Lactic Acid 2.7 H (0.4-2.0) Calcium (8.4-10.2) mg/dL Total Bilirubin (0.2-1.3) mg/dL AST (14-36) U/L ALT (0-35) U/L Alkaline Phosphatase (38-126) U/L Troponin I (0.000-0.033) ng/mL NT-Pro-B Natriuret Pep (<300) pg/mL Serum Total Protein (6.3-8.2) g/dL Albumin (3.5-5.0) g/dL Urine Color Yellow (Yellow) Urine Appearance Clear (Clear) Urine pH 6.0 (4.6-8.0) Ur Specific [place] 1.015 (1.005-1.030) Urine Protein 30 (Negative) Urine Glucose (UA) Negative (Negative) mg/dL Urine Ketones 15 A (Negative) Urine Blood Negative (Negative) Urine Nitrite Negative (Negative) Urine Bilirubin Negative (Negative) Urine Urobilinogen 1.0 A (0.2) mg/dL Ur Leukocyte Esterase Trace A (Negative) U Hyaline Cast (Auto) 3-5 A (0-2) /LPF Urine Microscopic RBC 0-2 (0-5) /HPF Urine Microscopic WBC 0-2 (0-5) /HPF Ur Epithelial Cells Rare (None Seen) /HPF Urine Bacteria None Seen (None Seen) /HPF Urine Culture Reflexed NO (NO) 05/26/25 05/26/25 05/26/25 Range/Units 12:30 12:30 14:25 WBC (3.98-10.04) x10^3/uL RBC (3.93-5.22) x10^6/uL Hgb (11.2-15.7) g/dL Hct (34.1-44.9) % MCV (79.4-94.8) fL MCH (25.6-32.2) pg MCHC (32.2-35.5) g/dL RDW (11.7-14.4) % Plt Count (182-369) x10^3/uL MPV (9.4-12.3) fL Gran % (34.0-71.1) % Immature Gran % (Auto) (0.001-0.429) % Nucleat RBC Rel Count (0.00-0.2) % Eos # (Auto) (0.04-0.36) x10^3/uL Immature Gran # (Auto) (0.001-0.031) x10^3u/L Absolute Lymphs (auto) (1.18-3.74) x10^3/uL Absolute Monos (auto) (0.24-0.86) x10^3/uL Absolute Nucleated RBC (0.00-0.012) x10^3u/L Lymphocytes % (19.3-51.7) % Monocytes % (4.7-12.5) % Eosinophils % (0.7-5.8) % Basophils % (0.1-1.2) % Absolute Granulocytes (1.56-6.13) x10^3/uL Basophils # (0.01-0.08) x10^3/uL Sodium 142 (135-145) mmol/L Potassium 4.0 (3.5-5.1) mmol/L Chloride 107 (98-107) mmol/L Carbon Dioxide 24 (22-30) mmol/L Anion Gap 14.1 (5-15) MEQ/L BUN 13 (7-17) mg/dL Creatinine 0.54 (0.52-1.04) mg/dL Estimated GFR 90.2 ML/MIN Glucose 164 H (74-106) mg/dL Lactic Acid (0.4-2.0) Calcium 9.8 (8.4-10.2) mg/dL Total Bilirubin 1.20 (0.2-1.3) mg/dL AST 37 H (14-36) U/L ALT 30 (0-35) U/L Alkaline Phosphatase 99 (38-126) U/L Troponin I 0.029 0.031 (0.000-0.033) ng/mL NT-Pro-B Natriuret Pep 988 (<300) pg/mL Serum Total Protein 6.4 (6.3-8.2) g/dL Albumin 4.1 (3.5-5.0) g/dL Urine Color (Yellow) Urine Appearance (Clear) Urine pH (4.6-8.0) Ur Specific [place] (1.005-1.030) Urine Protein (Negative) Urine Glucose (UA) (Negative) mg/dL Urine Ketones (Negative) Urine Blood (Negative) Urine Nitrite (Negative) Urine Bilirubin (Negative) Urine Urobilinogen (0.2) mg/dL Ur Leukocyte Esterase (Negative) U Hyaline Cast (Auto) (0-2) /LPF Urine Microscopic RBC (0-5) /HPF Urine Microscopic WBC (0-5) /HPF Ur Epithelial Cells (None Seen) /HPF Urine Bacteria (None Seen) /HPF Urine Culture Reflexed (NO) 05/26/25 Range/Units 14:31 WBC (3.98-10.04) x10^3/uL RBC (3.93-5.22) x10^6/uL Hgb (11.2-15.7) g/dL Hct (34.1-44.9) % MCV (79.4-94.8) fL MCH (25.6-32.2) pg MCHC (32.2-35.5) g/dL RDW (11.7-14.4) % Plt Count (182-369) x10^3/uL MPV (9.4-12.3) fL Gran % (34.0-71.1) % Immature Gran % (Auto) (0.001-0.429) % Nucleat RBC Rel Count (0.00-0.2) % Eos # (Auto) (0.04-0.36) x10^3/uL Immature Gran # (Auto) (0.001-0.031) x10^3u/L Absolute Lymphs (auto) (1.18-3.74) x10^3/uL Absolute Monos (auto) (0.24-0.86) x10^3/uL Absolute Nucleated RBC (0.00-0.012) x10^3u/L Lymphocytes % (19.3-51.7) % Monocytes % (4.7-12.5) % Eosinophils % (0.7-5.8) % Basophils % (0.1-1.2) % Absolute Granulocytes (1.56-6.13) x10^3/uL Basophils # (0.01-0.08) x10^3/uL Sodium (135-145) mmol/L Potassium (3.5-5.1) mmol/L Chloride (98-107) mmol/L Carbon Dioxide (22-30) mmol/L Anion Gap (5-15) MEQ/L BUN (7-17) mg/dL Creatinine (0.52-1.04) mg/dL Estimated GFR ML/MIN Glucose (74-106) mg/dL Lactic Acid 1.9 (0.4-2.0) Calcium (8.4-10.2) mg/dL Total Bilirubin (0.2-1.3) mg/dL AST (14-36) U/L ALT (0-35) U/L Alkaline Phosphatase (38-126) U/L Troponin I (0.000-0.033) ng/mL NT-Pro-B Natriuret Pep (<300) pg/mL Serum Total Protein (6.3-8.2) g/dL Albumin (3.5-5.0) g/dL Urine Color (Yellow) Urine Appearance (Clear) Urine pH (4.6-8.0) Ur Specific [place] (1.005-1.030) Urine Protein (Negative) Urine Glucose (UA) (Negative) mg/dL Urine Ketones (Negative) Urine Blood (Negative) Urine Nitrite (Negative) Urine Bilirubin (Negative) Urine Urobilinogen (0.2) mg/dL Ur Leukocyte Esterase (Negative) U Hyaline Cast (Auto) (0-2) /LPF Urine Microscopic RBC (0-5) /HPF Urine Microscopic WBC (0-5) /HPF Ur Epithelial Cells (None Seen) /HPF Urine Bacteria (None Seen) /HPF Urine Culture Reflexed (NO) - Radiology Impressions Radiology Exams & Impressions: Radiology Procedures Category Date Time Status HEAD WITHOUT CONTRAST [CT] Stat Exams 05/26/25 12:10 Completed Assessment/Plan (1) Syncope and collapse Current Visit: Yes Status: Acute Assessment & Plan: -Witnessed episode with prodrome of visual disturbance followed by loss of consciousness. -No seizure activity, postictal confusion, chest pain, or palpitations reported. -EKG with ventricular paced rhythm, no acute ischemia or arrhythmia. -Head CT negative for acute pathology; only chronic ischemic changes. -Lactate transiently elevated (2.7 - 1.9 after fluids), possibly reflecting transient hypoperfusion. -No troponin elevation x2 to suggest ACS. -Monitor on telemetry -Orthostatic vitals -pacemaker interrogation -cardiology consult if recurrent events - Echocardiogram -CTA head/neck -PT/OT consult given fall with syncope - Review meds for anything that could be lowering pressure or contributing to fall risk -Test for covid/flu/rsv -Family noted right facial droop and bilateral leg weakness, not present on ED or my exam. -Neurology consult Code(s): R55 - SYNCOPE AND COLLAPSE (2) COPD (chronic obstructive pulmonary disease) Current Visit: Yes Status: Acute Assessment & Plan: -Stable, no wheezing or increased work of breathing. -Continue home meds -Supplemental oxygen with goal spo2> 89% -Nebs/INH (3) HTN (hypertension) Current Visit: Yes Status: Acute Assessment & Plan: -Stable in ED -check orthostatic vitals -continue home meds Code(s): I10 - ESSENTIAL (PRIMARY) HYPERTENSION (4) HLD (hyperlipidemia) Current Visit: Yes Status: Acute Assessment & Plan: -continue statin Code(s): E78.5 - HYPERLIPIDEMIA, UNSPECIFIED (5) Hypothyroid Current Visit: Yes Status: Acute Assessment & Plan: -Check TSH -Noted elevation back in January patient reports meds adjusted -Continue levothyroxine and adjust as needed Code(s): E03.9 - HYPOTHYROIDISM, UNSPECIFIED (6) GERD (gastroesophageal reflux disease) Current Visit: Yes Status: Acute Assessment & Plan: -continue home meds Code(s): K21.9 - GASTRO-ESOPHAGEAL REFLUX DISEASE WITHOUT ESOPHAGITIS (7) Afib Current Visit: Yes Status: Acute Assessment & Plan: -Rhythm right now looks like ventricularly paced sinus. No acute arrhythmia caught in the ED. -Already anticoagulated on Eliquis and rate controlled with carvedilol. -Keep current anticoag and rate control. -Have device interrogated to see if she had an arrhythmic trigger for the syncope. Code(s): I48.91 - UNSPECIFIED ATRIAL FIBRILLATION (8) Lactic acidosis Current Visit: Yes Status: Acute Assessment & Plan: -Lactate was 2.7 on arrival, dropped to 1.9 after fluids. Likely from short hypoperfusion during syncopal event. -No ongoing treatment needed; monitor labs, ensure hydration. Code(s): E87.20 - ACIDOSIS, UNSPECIFIED (9) [id number] deficiency Current Visit: Yes Status: Acute Assessment & Plan: -Contributes to COPD history -Continue disease-specific management as previously established -Ensure up-to-date vaccinations (influenza, pneumococcal). -Pulmonology follow-up with Dr. Sam Code(s): E88.01 - [id number] DEFICIENCY (10) CHF (congestive heart failure) Current Visit: No Status: Chronic Assessment & Plan: -BNP 988 but no acute volume overload. - Echo last year EF 6065%. -Repeat Echo -continue home meds -[employer] Consultant Dr. Gaxiola VTE: Eliquis PPI: Protonix Dispo: 1-3 days Code status: Full code Plan of care time spent > 35 mins Code(s): I50.9 - HEART FAILURE, UNSPECIFIED Telemedicine Encounter - Telemedicine Encounter Telemedicine Encounter: "The entirety of this encounter was performed via Telemedicine" This visit was performed using real-time audio and video connection between my location and thepatients locationwith the assistance of a surrogateat the patients location. Written or verbal consent was obtained from the patient/guardian to perform this visit [facility]. Any patient questions regarding the telemedicine interaction were answered. <ZEHRA TAYLOR - Last Filed: 05/26/25 20:43> History of Present Illness - Chief Complaint History of Present Illness: is a 85 year old female. - Physical Exam Vital Signs: Vital Signs - 24 hr Temp Pulse Resp BP BP Pulse Ox 05/26/25 20:00 97.3 F 91 H 20 144/68 99 05/26/25 17:20 84 18 93 L 05/26/25 16:54 97.9 F 85 22 139/69 93 L 05/26/25 15:30 83 22 143/70 95 05/26/25 15:10 93 L 05/26/25 15:00 84 22 121/80 96 05/26/25 14:30 85 15 139/77 97 05/26/25 14:00 82 21 106/84 97 05/26/25 13:30 86 22 124/64 96 05/26/25 13:13 83 18 95/72 93 L 05/26/25 13:10 86 15 120/62 94 L 05/26/25 13:00 85 12 94 L 05/26/25 12:58 94 L 05/26/25 12:05 98 05/26/25 11:29 97 F 86 16 100/67 99 Results - Labs Lab/Micro Results: Lab Results-Last 24 Hours 05/26/25 05/26/25 05/26/25 Range/Units 10:51 12:05 12:29 WBC (3.98-10.04) x10^3/uL RBC (3.93-5.22) x10^6/uL Hgb (11.2-15.7) g/dL Hct (34.1-44.9) % MCV (79.4-94.8) fL MCH (25.6-32.2) pg MCHC (32.2-35.5) g/dL RDW (11.7-14.4) % Plt Count (182-369) x10^3/uL MPV (9.4-12.3) fL Gran % (34.0-71.1) % Immature Gran % (Auto) (0.001-0.429) % Nucleat RBC Rel Count (0.00-0.2) % Eos # (Auto) (0.04-0.36) x10^3/uL Immature Gran # (Auto) (0.001-0.031) x10^3u/L Absolute Lymphs (auto) (1.18-3.74) x10^3/uL Absolute Monos (auto) (0.24-0.86) x10^3/uL Absolute Nucleated RBC (0.00-0.012) x10^3u/L Lymphocytes % (19.3-51.7) % Monocytes % (4.7-12.5) % Eosinophils % (0.7-5.8) % Basophils % (0.1-1.2) % Absolute Granulocytes (1.56-6.13) x10^3/uL Basophils # (0.01-0.08) x10^3/uL Sodium (135-145) mmol/L Potassium (3.5-5.1) mmol/L Chloride (98-107) mmol/L Carbon Dioxide (22-30) mmol/L Anion Gap (5-15) MEQ/L BUN (7-17) mg/dL Creatinine (0.52-1.04) mg/dL Estimated GFR ML/MIN Glucose (74-106) mg/dL Hemoglobin A1c 5.22 (4.5-6.0) % Lactic Acid 2.7 H (0.4-2.0) Calcium (8.4-10.2) mg/dL Total Bilirubin (0.2-1.3) mg/dL AST (14-36) U/L ALT (0-35) U/L Alkaline Phosphatase (38-126) U/L Troponin I (0.000-0.033) ng/mL NT-Pro-B Natriuret Pep (<300) pg/mL Serum Total Protein (6.3-8.2) g/dL Albumin (3.5-5.0) g/dL Urine Color Yellow (Yellow) Urine Appearance Clear (Clear) Urine pH 6.0 (4.6-8.0) Ur Specific [place] 1.015 (1.005-1.030) Urine Protein 30 (Negative) Urine Glucose (UA) Negative (Negative) mg/dL Urine Ketones 15 A (Negative) Urine Blood Negative (Negative) Urine Nitrite Negative (Negative) Urine Bilirubin Negative (Negative) Urine Urobilinogen 1.0 A (0.2) mg/dL Ur Leukocyte Esterase Trace A (Negative) U Hyaline Cast (Auto) 3-5 A (0-2) /LPF Urine Microscopic RBC 0-2 (0-5) /HPF Urine Microscopic WBC 0-2 (0-5) /HPF Ur Epithelial Cells Rare (None Seen) /HPF Urine Bacteria None Seen (None Seen) /HPF Urine Culture Reflexed NO (NO) 05/26/25 05/26/25 05/26/25 Range/Units 12:30 12:30 12:30 WBC 9.7 (3.98-10.04) x10^3/uL RBC 4.43 (3.93-5.22) x10^6/uL Hgb 13.3 (11.2-15.7) g/dL Hct 41.7 (34.1-44.9) % MCV 94.1 (79.4-94.8) fL MCH 30.0 (25.6-32.2) pg MCHC 31.9 L (32.2-35.5) g/dL RDW 14.2 (11.7-14.4) % Plt Count 168 L (182-369) x10^3/uL MPV 9.7 (9.4-12.3) fL Gran % 77.0 H (34.0-71.1) % Immature Gran % (Auto) 0.4 (0.001-0.429) % Nucleat RBC Rel Count 0.0 (0.00-0.2) % Eos # (Auto) 0.10 (0.04-0.36) x10^3/uL Immature Gran # (Auto) 0.04 H (0.001-0.031) x10^3u/L Absolute Lymphs (auto) 1.28 (1.18-3.74) x10^3/uL Absolute Monos (auto) 0.78 (0.24-0.86) x10^3/uL Absolute Nucleated RBC 0.00 (0.00-0.012) x10^3u/L Lymphocytes % 13.2 L (19.3-51.7) % Monocytes % 8.0 (4.7-12.5) % Eosinophils % 1.0 (0.7-5.8) % Basophils % 0.4 (0.1-1.2) % Absolute Granulocytes 7.46 H (1.56-6.13) x10^3/uL Basophils # 0.04 (0.01-0.08) x10^3/uL Sodium 142 (135-145) mmol/L Potassium 4.0 (3.5-5.1) mmol/L Chloride 107 (98-107) mmol/L Carbon Dioxide 24 (22-30) mmol/L Anion Gap 14.1 (5-15) MEQ/L BUN 13 (7-17) mg/dL Creatinine 0.54 (0.52-1.04) mg/dL Estimated GFR 90.2 ML/MIN Glucose 164 H (74-106) mg/dL Hemoglobin A1c (4.5-6.0) % Lactic Acid (0.4-2.0) Calcium 9.8 (8.4-10.2) mg/dL Total Bilirubin 1.20 (0.2-1.3) mg/dL AST 37 H (14-36) U/L ALT 30 (0-35) U/L Alkaline Phosphatase 99 (38-126) U/L Troponin I 0.029 (0.000-0.033) ng/mL NT-Pro-B Natriuret Pep 988 (<300) pg/mL Serum Total Protein 6.4 (6.3-8.2) g/dL Albumin 4.1 (3.5-5.0) g/dL Urine Color (Yellow) Urine Appearance (Clear) Urine pH (4.6-8.0) Ur Specific [place] (1.005-1.030) Urine Protein (Negative) Urine Glucose (UA) (Negative) mg/dL Urine Ketones (Negative) Urine Blood (Negative) Urine Nitrite (Negative) Urine Bilirubin (Negative) Urine Urobilinogen (0.2) mg/dL Ur Leukocyte Esterase (Negative) U Hyaline Cast (Auto) (0-2) /LPF Urine Microscopic RBC (0-5) /HPF Urine Microscopic WBC (0-5) /HPF Ur Epithelial Cells (None Seen) /HPF Urine Bacteria (None Seen) /HPF Urine Culture Reflexed (NO) 05/26/25 05/26/25 Range/Units 14:25 14:31 WBC (3.98-10.04) x10^3/uL RBC (3.93-5.22) x10^6/uL Hgb (11.2-15.7) g/dL Hct (34.1-44.9) % MCV (79.4-94.8) fL MCH (25.6-32.2) pg MCHC (32.2-35.5) g/dL RDW (11.7-14.4) % Plt Count (182-369) x10^3/uL MPV (9.4-12.3) fL Gran % (34.0-71.1) % Immature Gran % (Auto) (0.001-0.429) % Nucleat RBC Rel Count (0.00-0.2) % Eos # (Auto) (0.04-0.36) x10^3/uL Immature Gran # (Auto) (0.001-0.031) x10^3u/L Absolute Lymphs (auto) (1.18-3.74) x10^3/uL Absolute Monos (auto) (0.24-0.86) x10^3/uL Absolute Nucleated RBC (0.00-0.012) x10^3u/L Lymphocytes % (19.3-51.7) % Monocytes % (4.7-12.5) % Eosinophils % (0.7-5.8) % Basophils % (0.1-1.2) % Absolute Granulocytes (1.56-6.13) x10^3/uL Basophils # (0.01-0.08) x10^3/uL Sodium (135-145) mmol/L Potassium (3.5-5.1) mmol/L Chloride (98-107) mmol/L Carbon Dioxide (22-30) mmol/L Anion Gap (5-15) MEQ/L BUN (7-17) mg/dL Creatinine (0.52-1.04) mg/dL Estimated GFR ML/MIN Glucose (74-106) mg/dL Hemoglobin A1c (4.5-6.0) % Lactic Acid 1.9 (0.4-2.0) Calcium (8.4-10.2) mg/dL Total Bilirubin (0.2-1.3) mg/dL AST (14-36) U/L ALT (0-35) U/L Alkaline Phosphatase (38-126) U/L Troponin I 0.031 (0.000-0.033) ng/mL NT-Pro-B Natriuret Pep (<300) pg/mL Serum Total Protein (6.3-8.2) g/dL Albumin (3.5-5.0) g/dL Urine Color (Yellow) Urine Appearance (Clear) Urine pH (4.6-8.0) Ur Specific [place] (1.005-1.030) Urine Protein (Negative) Urine Glucose (UA) (Negative) mg/dL Urine Ketones (Negative) Urine Blood (Negative) Urine Nitrite (Negative) Urine Bilirubin (Negative) Urine Urobilinogen (0.2) mg/dL Ur Leukocyte Esterase (Negative) U Hyaline Cast (Auto) (0-2) /LPF Urine Microscopic RBC (0-5) /HPF Urine Microscopic WBC (0-5) /HPF Ur Epithelial Cells (None Seen) /HPF Urine Bacteria (None Seen) /HPF Urine Culture Reflexed (NO) - Radiology Impressions Radiology Exams & Impressions: Radiology Procedures Category Date Time Status CHEST 2 VIEWS (PA AND LAT) Stat Exams 05/26/25 16:[address] ANGIOGRAPHY NECK [CT] Urgent Exams 05/26/25 16:54 Taken CTA HEAD W AND/OR WO CONTRAST [CT] Urgent Exams 05/26/25 16:54 Taken ECHO W/2D AND DOPPLER [US] Urgent Exams 05/27/25 07:00 Ordered HEAD WITHOUT CONTRAST [CT] Stat Exams 05/26/25 12:10 Completed - Other Procedures and Tests Respiratory Therapy 05/26/25 16:54 EKG REPEAT IN AM 05/26/25 17:20 Respiratory Therapy Assessment DAILY 05/26/25 18:42 RT Screen per Nursing Assess ONCE 05/26/25 19:00 Respiratory MDI BID Respiratory MDI QID Telemedicine Encounter - Telemedicine Encounter Telemedicine Encounter: "The entirety of this encounter was performed via Telemedicine" This visit was performed using real-time audio and video connection between my location and thepatients locationwith the assistance of a surrogateat the patients location. Written or verbal consent was obtained from the patient/guardian to perform this visit usingsynchrBiomedical Innovationtelemedicine technology. Any patient questions regarding the telemedicine interaction were answered. HANNAH Encounter - HANNAH Encounter Attestation HANNAH Encounter Attestation: "LibiapersonalloreleieenFAVIOLA Keith andhavediscussed pertinent aspects of their care with Prosper Best agree with the history, physical exam (any modifications based on my personal exam will be noted below), assessment, and plan as outlined in original note. Please see immediately below for my summary of findings and additional assessment and plan along with any meaningful corrections/explanations to the Subjective/Objective portions of the [facility] note will be noted." My portion of the encounter took place via telemedicine. -patient presenting with presyncope, possible brief syncope. Will evaluate with orthostatic vital signs, echo, pacemaker interrogation. Patient does not have any neurological symptoms now but family reported left leg weakness during the episode. Will check CTA of head and neck.
[2025-05-26] MEDS ORDERED: DUONEB 0.5-3 MG/3 ml Neb IH PRN (16:54)
[2025-05-26] MEDS ORDERED: Zofran 4 MG/2 ML VIAL IV PRN (16:54)
--- NOTE | 2025-05-26 19:14 | XRAY ---
CLINICAL HISTORY: sob cough COMPARISON: No prior studies are available for comparison. TECHNIQUE: X-ray images of the chest were obtained in posteroanterior (PA) and lateral projections. FINDINGS: Pulmonary Parenchyma: The lungs are clear bilaterally. There is no evidence of consolidation or collapse. Multiple calcified nodular shadows are present in both lung [place], which could represent calcified pulmonary nodules or pleural plaques, likely secondary to old granulomas. There is no evidence of pleural effusion or pleural thickening. An elevated right diaphragmatic copula is noted. Heart and Mediastinum: The heart size and shape are normal. There is no mediastinal widening or mass. Multiple small hilar and mediastinal calcified lymph nodes are present, likely due to old granulomas. A left-sided cardiac pacemaker is seen, with its leads in place. Bony Thorax: The bony thorax appears intact, without fractures or deformities. There are diffuse spondylotic changes. Diffuse osteopenia is noted. Soft Tissues: The soft tissues overlying the chest wall are unremarkable. EKG leads are present on the chest wall. IMPRESSION: No acute cardiopulmonary abnormalities are identified. Multiple calcified nodular shadows are present in both lung [place], which could represent calcified pulmonary nodules or pleural plaques, likely secondary to old granulomas. Electronically Signed by: Saroj Ladd MD. (05/26/2025 19:11:30 EDT)
[2025-05-26] MEDS: PATIENT OWN MEDICATION IH SCH ×2 (20:46)
--- NOTE | 2025-05-26 21:02 | XRAY ---
CLINICAL HISTORY: syncope facial droop COMPARISON: Same day plain head CT was reviewed. TECHNIQUE: CT angiography of the head was performed following the intravenous administration of iodinated contrast material. Contiguous axial images were obtained from the base of the skull to the vertex. Coronal and sagittal reformatted images were also reviewed. One of these 3D techniques was utilized: Maximum Intensity Pixel (MIP), 3D Reconstructed Images, Volume Rendered Images, Surface Shaded Rendering. One of the following dose reduction techniques was utilized for this exam. Automated exposure control, adjustment of the mA and/or kV according to patient size, and use of iterative reconstruction. FINDINGS: Intracranial Arteries: Small calcified plaques in both cavernous ICAs without significant stenosis. The intracranial arteries, including the anterior cerebral arteries, middle cerebral arteries, posterior cerebral arteries, basilar artery, and vertebral arteries, are all patent without evidence of significant stenosis, aneurysm, or dissection. There is no evidence of vascular malformations. [place]: Bilateral PCOMs (anatomic variant) Venous System: The visualized portions of the venous system, including the dural venous sinuses, are patent with no evidence of thrombosis. Brain Parenchyma: The brain parenchyma shows no evidence of acute infarct, hemorrhage, or mass effect. The ventricles and sulci are normal in size and configuration. Bones: The bony structures of the skull are intact without evidence of fracture or destructive lesions. Soft Tissues: The visualized soft tissues of the head are unremarkable. Additional Findings: No other significant findings are noted. IMPRESSION: No evidence of significant vascular abnormalities, acute infarct, or hemorrhage. Electronically Signed by: Saroj Ladd MD. (05/26/2025 21:00:59 EDT)
--- NOTE | 2025-05-26 21:06 | XRAY ---
CLINICAL HISTORY: syncope facial droop COMPARISON: None. TECHNIQUE: CT angiography of the neck was performed following the intravenous administration of iodinated contrast material. Axial images were obtained from the aortic arch to the vertex. Coronal and sagittal reformatted images were also reviewed. One of the following dose reduction techniques was utilized for this exam. Automated exposure control, adjustment of the mA and/or kV according to patient size, and use of iterative reconstruction. One of these 3D techniques was utilized: Maximum Intensity Pixel (MIP), 3D Reconstructed Images, Volume Rendered Images, Surface Shaded Rendering. FINDINGS: Carotid Arteries: The common, internal, and external carotid arteries are patent bilaterally with no evidence of significant stenosis, aneurysm, or dissection. There is no evidence of atherosclerotic plaque causing significant luminal narrowing. Vertebral Arteries: The vertebral arteries are patent bilaterally with no evidence of significant stenosis, aneurysm, or dissection. Thyroid Gland: Enlarged (3.0 cm in the right and 2.7 cm in the left, AP diameter) with no focal lesions. Lymph Nodes: There is no evidence of significant lymphadenopathy in the neck. Soft Tissues: The soft tissues of the neck are unremarkable with no evidence of masses or abnormal collections. Additional Findings: Atherosclerotic aorta. Multiple scattered calcified pulmonary nodules in both upper lobes. Degenerative changes in the cervical spine, with decreased bone density. Few lytic foci in the vertebral bodies, likely part of osteoporosis, advised clinical correlation and further evaluation if warranted. Mild submucosal edema of the mid esophagus, may due to underdistention, to correlate clinically. Calcified mediastinal lymph nodes. IMPRESSION: 1. No evidence of significant vascular abnormalities. 2. Degenerative changes in the cervical spine, with decreased bone density. 3. Few lytic foci in the vertebral bodies, likely part of osteoporosis, advised clinical correlation and further evaluation if warranted. Electronically Signed by: Saroj Ladd MD. (05/26/2025 21:03:37 EDT)
[2025-05-26] MEDS ORDERED: Ditropan 5 MG ONE (21:26)
[2025-05-26] MEDS: COREG 12.5 MG PO SCH (21:43)
[2025-05-26] MEDS: Zetia 10 MG PO SCH (21:43)
[2025-05-26] MEDS: Singulair 10 MG PO SCH (21:44)
[2025-05-26] MEDS: ENTRESTO 49 MG-51 MG TABLET PO SCH (21:44)
[2025-05-26] MEDS: ELIQUIS 2.5 MG TABLET PO SCH (21:44)
[2025-05-26] MEDS: TYLENOL 325 MG PO PRN (21:52)
[2025-05-26] MEDS: Ditropan XL 5 MG PO SCH (21:56)
[2025-05-26] MEDS ORDERED: NON-FORMULARY ITEM (Sacubitril/Valsartan [Entresto 97 Mg-103 Mg Tablet] 1 EACH Tablet) PO SCH (22:00)
[2025-05-26] MEDS ORDERED: NON-FORMULARY ITEM (Cetirizine Hcl [Zyrtec] 10 MG Capsule) PO SCH (22:00)
[2025-05-26] MEDS ORDERED: NON-FORMULARY ITEM (Budesonide/Formoterol Fumarate [Budesonide-Formoterol 160-4.5] 10.2 GM IH SCH (22:00)
[2025-05-26] MEDS ORDERED: NON-FORMULARY ITEM (Apixaban [Eliquis] 5 MG Tablet) PO SCH (22:00)
[2025-05-26] MEDS ORDERED: NON-FORMULARY ITEM (Carvedilol [Coreg] 25 MG Tablet) PO SCH (22:00)
[2025-05-26] MEDS ORDERED: Ventolin Hfa MDI IH SCH (22:00)
[2025-05-27 05:29] LABS: Hematocrit 35.4 % (34.1-44.9); Hemoglobin 11.0 g/dL (11.2-15.7); Mean Corpuscular Hemoglobin 29.5 pg (25.6-32.2); Mean Corpuscular Hgb Concent. 31.1 g/dL (32.2-35.5); Platelet Count 126 x10^3/uL (182-369); Red Blood Count 3.73 x10^6/uL (3.93-5.22); White Blood Count 5.3 x10^3/uL (3.98-10.04)
[2025-05-27 05:55] LABS: Calcium 9.4 mg/dL (8.4-10.2); Carbon Dioxide 25.0 mmol/L (22-30); Cholesterol 154.0 mg/dL (50-200); Creatinine 1 0.52 mg/dL (0.52-1.04); EST GLOMERULAR FILTRATION RATE 91.0 ML/MIN; Glucose 114.0 mg/dL (74-106); LDL, DIRECT 98.0 mg/dL (30-100); Potassium 3.6 mmol/L (3.5-5.1); SGOT/AST 33.0 U/L (14-36); SGPT/ALT 25.0 U/L (0-35); TRIGLYCERIDE 121.0 mg/dL (30-150); Total Protein 6.1 g/dL (6.3-8.2)
[2025-05-27 07:11] VITALS: PULSE 84; RESP 16
[2025-05-27] MEDS ORDERED: SYNTHROID 112 MCG PO SCH (10:00)
[2025-05-27] MEDS ORDERED: NON-FORMULARY ITEM (Duloxetine Hcl [Duloxetine Hcl] 60 MG Capsule.Dr) PO SCH (10:00)
[2025-05-27] MEDS ORDERED: Aldactone 25 MG PO SCH (10:00)
--- NOTE | 2025-05-27 10:19 | PCM.DS ---
Discharge Summary Date of Admission: 05/26/25 15:48 Date of Discharge: 05/27/25 Admitting Physician: ZEHRA TAYLOR MD Consults: Consults on Case 05/26/25 16:54 Consult Neurology ROUTINE Primary Care Provider: GARCIA RDZ BISI Allergies Allergies No Known Drug Allergies Allergy (Verified 05/26/25 11:44) Hospital Summary - Hospital Course Hospital Course: is an 85-year-old female with a history of atrial fibrillation on Eliquis, hypertension, hyperlipidemia, COPD, hypothyroidism, GERD, and pacemaker-defibrillator presented on 05/26/25 after a syncopal episode at home preceded by dizziness, upper back pain, and a generalized feeling of being out of sorts. On ED arrival, she was hemodynamically stable. Workup included a head CT showing only chronic atrophy and white matter disease, EKG with ventricularly paced rhythm and no acute changes, normal serial troponins, and urinalysis with trace abnormalities but no clear infection. BNP was elevated at 988, and lactate normalized after IV fluids. She improved clinically with supportive care. During hospitalization, she remained weak but was able to ambulate independently with staff and tolerated PT without difficulty. Orthostatic vitals were negative, labs were stable, and echocardiogram is pending. At discharge on 05/27/25, she denied chest pain, palpitations, or new neurological deficits. She plans to return home with her daughter and declined facility placement. Discharge plan includes continuation of home medications, follow-up with her primary care provider, and monitoring for recurrence of syncope, heart failure symptoms, or neurological changes. If Ok with cardiology may d/c today. Pacemaker interrogated and pt had a 24 minute run of a-fib. - Vitals & Intake/Output Vital Signs: Vital Signs Temperature 98.4 F 05/27/25 07:10 Pulse Rate 84 05/27/25 07:28 Respiratory Rate 16 05/27/25 07:28 Blood Pressure 129/57 05/27/25 07:10 O2 Sat by Pulse Oximetry 94 L 05/27/25 07:28 Intake & Output: Intake & Output 05/24/25 05/25/25 05/26/25 05/27/25 11:59 11:59 11:59 11:59 Intake Total 980 Output Total 400 Balance 580 Weight 70.7 kg 68.8 kg - Lab Result Diagrams: 05/27/25 04:48 05/27/25 04:48 Lab Results-Last 24 Hrs: Lab Results-Last 24 Hours 05/26/25 05/26/25 05/26/25 Range/Units 10:51 12:05 12:29 WBC (3.98-10.04) x10^3/uL RBC (3.93-5.22) x10^6/uL Hgb (11.2-15.7) g/dL Hct (34.1-44.9) % MCV (79.4-94.8) fL MCH (25.6-32.2) pg MCHC (32.2-35.5) g/dL RDW (11.7-14.4) % Plt Count (182-369) x10^3/uL MPV (9.4-12.3) fL Gran % (34.0-71.1) % Immature Gran % (Auto) (0.001-0.429) % Nucleat RBC Rel Count (0.00-0.2) % Eos # (Auto) (0.04-0.36) x10^3/uL Immature Gran # (Auto) (0.001-0.031) x10^3u/L Absolute Lymphs (auto) (1.18-3.74) x10^3/uL Absolute Monos (auto) (0.24-0.86) x10^3/uL Absolute Nucleated RBC (0.00-0.012) x10^3u/L Lymphocytes % (19.3-51.7) % Monocytes % (4.7-12.5) % Eosinophils % (0.7-5.8) % Basophils % (0.1-1.2) % Absolute Granulocytes (1.56-6.13) x10^3/uL Basophils # (0.01-0.08) x10^3/uL Sodium (135-145) mmol/L Potassium (3.5-5.1) mmol/L Chloride (98-107) mmol/L Carbon Dioxide (22-30) mmol/L Anion Gap (5-15) MEQ/L BUN (7-17) mg/dL Creatinine (0.52-1.04) mg/dL Estimated GFR ML/MIN Glucose (74-106) mg/dL Hemoglobin A1c 5.22 (4.5-6.0) % Lactic Acid 2.7 H (0.4-2.0) Calcium (8.4-10.2) mg/dL Total Bilirubin (0.2-1.3) mg/dL AST (14-36) U/L ALT (0-35) U/L Alkaline Phosphatase (38-126) U/L Troponin I (0.000-0.033) ng/mL NT-Pro-B Natriuret Pep (<300) pg/mL Serum Total Protein (6.3-8.2) g/dL Albumin (3.5-5.0) g/dL Triglycerides (30-150) mg/dL Cholesterol (50-200) mg/dL LDL Cholesterol (30-100) mg/dL HDL Cholesterol (40-60) mg/dL Heart Disease Risk Ratio TSH 3rd Generation (0.470-4.680) mIU/L Urine Color Yellow (Yellow) Urine Appearance Clear (Clear) Urine pH 6.0 (4.6-8.0) Ur Specific [place] 1.015 (1.005-1.030) Urine Protein 30 (Negative) Urine Glucose (UA) Negative (Negative) mg/dL Urine Ketones 15 A (Negative) Urine Blood Negative (Negative) Urine Nitrite Negative (Negative) Urine Bilirubin Negative (Negative) Urine Urobilinogen 1.0 A (0.2) mg/dL Ur Leukocyte Esterase Trace A (Negative) U Hyaline Cast (Auto) 3-5 A (0-2) /LPF Urine Microscopic RBC 0-2 (0-5) /HPF Urine Microscopic WBC 0-2 (0-5) /HPF Ur Epithelial Cells Rare (None Seen) /HPF Urine Bacteria None Seen (None Seen) /HPF Urine Culture Reflexed NO (NO) 05/26/25 05/26/25 05/26/25 Range/Units 12:30 12:30 12:30 WBC 9.7 (3.98-10.04) x10^3/uL RBC 4.43 (3.93-5.22) x10^6/uL Hgb 13.3 (11.2-15.7) g/dL Hct 41.7 (34.1-44.9) % MCV 94.1 (79.4-94.8) fL MCH 30.0 (25.6-32.2) pg MCHC 31.9 L (32.2-35.5) g/dL RDW 14.2 (11.7-14.4) % Plt Count 168 L (182-369) x10^3/uL MPV 9.7 (9.4-12.3) fL Gran % 77.0 H (34.0-71.1) % Immature Gran % (Auto) 0.4 (0.001-0.429) % Nucleat RBC Rel Count 0.0 (0.00-0.2) % Eos # (Auto) 0.10 (0.04-0.36) x10^3/uL Immature Gran # (Auto) 0.04 H (0.001-0.031) x10^3u/L Absolute Lymphs (auto) 1.28 (1.18-3.74) x10^3/uL Absolute Monos (auto) 0.78 (0.24-0.86) x10^3/uL Absolute Nucleated RBC 0.00 (0.00-0.012) x10^3u/L Lymphocytes % 13.2 L (19.3-51.7) % Monocytes % 8.0 (4.7-12.5) % Eosinophils % 1.0 (0.7-5.8) % Basophils % 0.4 (0.1-1.2) % Absolute Granulocytes 7.46 H (1.56-6.13) x10^3/uL Basophils # 0.04 (0.01-0.08) x10^3/uL Sodium 142 (135-145) mmol/L Potassium 4.0 (3.5-5.1) mmol/L Chloride 107 (98-107) mmol/L Carbon Dioxide 24 (22-30) mmol/L Anion Gap 14.1 (5-15) MEQ/L BUN 13 (7-17) mg/dL Creatinine 0.54 (0.52-1.04) mg/dL Estimated GFR 90.2 ML/MIN Glucose 164 H (74-106) mg/dL Hemoglobin A1c (4.5-6.0) % Lactic Acid (0.4-2.0) Calcium 9.8 (8.4-10.2) mg/dL Total Bilirubin 1.20 (0.2-1.3) mg/dL AST 37 H (14-36) U/L ALT 30 (0-35) U/L Alkaline Phosphatase 99 (38-126) U/L Troponin I 0.029 (0.000-0.033) ng/mL NT-Pro-B Natriuret Pep 988 (<300) pg/mL Serum Total Protein 6.4 (6.3-8.2) g/dL Albumin 4.1 (3.5-5.0) g/dL Triglycerides (30-150) mg/dL Cholesterol (50-200) mg/dL LDL Cholesterol (30-100) mg/dL HDL Cholesterol (40-60) mg/dL Heart Disease Risk Ratio TSH 3rd Generation (0.470-4.680) mIU/L Urine Color (Yellow) Urine Appearance (Clear) Urine pH (4.6-8.0) Ur Specific [place] (1.005-1.030) Urine Protein (Negative) Urine Glucose (UA) (Negative) mg/dL Urine Ketones (Negative) Urine Blood (Negative) Urine Nitrite (Negative) Urine Bilirubin (Negative) Urine Urobilinogen (0.2) mg/dL Ur Leukocyte Esterase (Negative) U Hyaline Cast (Auto) (0-2) /LPF Urine Microscopic RBC (0-5) /HPF Urine Microscopic WBC (0-5) /HPF Ur Epithelial Cells (None Seen) /HPF Urine Bacteria (None Seen) /HPF Urine Culture Reflexed (NO) 05/26/25 05/26/25 05/26/25 Range/Units 14:25 14:31 20:19 WBC (3.98-10.04) x10^3/uL RBC (3.93-5.22) x10^6/uL Hgb (11.2-15.7) g/dL Hct (34.1-44.9) % MCV (79.4-94.8) fL MCH (25.6-32.2) pg MCHC (32.2-35.5) g/dL RDW (11.7-14.4) % Plt Count (182-369) x10^3/uL MPV (9.4-12.3) fL Gran % (34.0-71.1) % Immature Gran % (Auto) (0.001-0.429) % Nucleat RBC Rel Count (0.00-0.2) % Eos # (Auto) (0.04-0.36) x10^3/uL Immature Gran # (Auto) (0.001-0.031) x10^3u/L Absolute Lymphs (auto) (1.18-3.74) x10^3/uL Absolute Monos (auto) (0.24-0.86) x10^3/uL Absolute Nucleated RBC (0.00-0.012) x10^3u/L Lymphocytes % (19.3-51.7) % Monocytes % (4.7-12.5) % Eosinophils % (0.7-5.8) % Basophils % (0.1-1.2) % Absolute Granulocytes (1.56-6.13) x10^3/uL Basophils # (0.01-0.08) x10^3/uL Sodium (135-145) mmol/L Potassium (3.5-5.1) mmol/L Chloride (98-107) mmol/L Carbon Dioxide (22-30) mmol/L Anion Gap (5-15) MEQ/L BUN (7-17) mg/dL Creatinine (0.52-1.04) mg/dL Estimated GFR ML/MIN Glucose (74-106) mg/dL Hemoglobin A1c (4.5-6.0) % Lactic Acid 1.9 (0.4-2.0) Calcium (8.4-10.2) mg/dL Total Bilirubin (0.2-1.3) mg/dL AST (14-36) U/L ALT (0-35) U/L Alkaline Phosphatase (38-126) U/L Troponin I 0.031 0.022 (0.000-0.033) ng/mL NT-Pro-B Natriuret Pep (<300) pg/mL Serum Total Protein (6.3-8.2) g/dL Albumin (3.5-5.0) g/dL Triglycerides (30-150) mg/dL Cholesterol (50-200) mg/dL LDL Cholesterol (30-100) mg/dL HDL Cholesterol (40-60) mg/dL Heart Disease Risk Ratio TSH 3rd Generation (0.470-4.680) mIU/L Urine Color (Yellow) Urine Appearance (Clear) Urine pH (4.6-8.0) Ur Specific [place] (1.005-1.030) Urine Protein (Negative) Urine Glucose (UA) (Negative) mg/dL Urine Ketones (Negative) Urine Blood (Negative) Urine Nitrite (Negative) Urine Bilirubin (Negative) Urine Urobilinogen (0.2) mg/dL Ur Leukocyte Esterase (Negative) U Hyaline Cast (Auto) (0-2) /LPF Urine Microscopic RBC (0-5) /HPF Urine Microscopic WBC (0-5) /HPF Ur Epithelial Cells (None Seen) /HPF Urine Bacteria (None Seen) /HPF Urine Culture Reflexed (NO) 05/26/25 05/27/25 05/27/25 Range/Units 20:19 04:48 04:48 WBC 5.3 (3.98-10.04) x10^3/uL RBC 3.73 L (3.93-5.22) x10^6/uL Hgb 11.0 L (11.2-15.7) g/dL Hct 35.4 (34.1-44.9) % MCV 94.9 H (79.4-94.8) fL MCH 29.5 (25.6-32.2) pg MCHC 31.1 L (32.2-35.5) g/dL RDW 14.5 H (11.7-14.4) % Plt Count 126 L (182-369) x10^3/uL MPV 10.2 (9.4-12.3) fL Gran % (34.0-71.1) % Immature Gran % (Auto) (0.001-0.429) % Nucleat RBC Rel Count (0.00-0.2) % Eos # (Auto) (0.04-0.36) x10^3/uL Immature Gran # (Auto) (0.001-0.031) x10^3u/L Absolute Lymphs (auto) (1.18-3.74) x10^3/uL Absolute Monos (auto) (0.24-0.86) x10^3/uL Absolute Nucleated RBC (0.00-0.012) x10^3u/L Lymphocytes % (19.3-51.7) % Monocytes % (4.7-12.5) % Eosinophils % (0.7-5.8) % Basophils % (0.1-1.2) % Absolute Granulocytes (1.56-6.13) x10^3/uL Basophils # (0.01-0.08) x10^3/uL Sodium 136 (135-145) mmol/L Potassium 3.6 (3.5-5.1) mmol/L Chloride 105 (98-107) mmol/L Carbon Dioxide 25 (22-30) mmol/L Anion Gap 9.5 (5-15) MEQ/L BUN 15 (7-17) mg/dL Creatinine 0.52 (0.52-1.04) mg/dL Estimated GFR 91.0 ML/MIN Glucose 114 H (74-106) mg/dL Hemoglobin A1c (4.5-6.0) % Lactic Acid (0.4-2.0) Calcium 9.4 (8.4-10.2) mg/dL Total Bilirubin 1.10 (0.2-1.3) mg/dL AST 33 (14-36) U/L ALT 25 (0-35) U/L Alkaline Phosphatase 79 (38-126) U/L Troponin I (0.000-0.033) ng/mL NT-Pro-B Natriuret Pep (<300) pg/mL Serum Total Protein 6.1 L (6.3-8.2) g/dL Albumin 3.7 (3.5-5.0) g/dL Triglycerides 121 (30-150) mg/dL Cholesterol 154 (50-200) mg/dL LDL Cholesterol 98 (30-100) mg/dL HDL Cholesterol 29 L (40-60) mg/dL Heart Disease Risk Ratio 5.0 TSH 3rd Generation 1.680 (0.470-4.680) mIU/L Urine Color (Yellow) Urine Appearance (Clear) Urine pH (4.6-8.0) Ur Specific [place] (1.005-1.030) Urine Protein (Negative) Urine Glucose (UA) (Negative) mg/dL Urine Ketones (Negative) Urine Blood (Negative) Urine Nitrite (Negative) Urine Bilirubin (Negative) Urine Urobilinogen (0.2) mg/dL Ur Leukocyte Esterase (Negative) U Hyaline Cast (Auto) (0-2) /LPF Urine Microscopic RBC (0-5) /HPF Urine Microscopic WBC (0-5) /HPF Ur Epithelial Cells (None Seen) /HPF Urine Bacteria (None Seen) /HPF Urine Culture Reflexed (NO) - Radiology Exams Ordered Rad Exams-Entire Visit: Radiology Procedures Category Date Time Status CHEST 2 VIEWS (PA AND LAT) Stat Exams 05/26/25 16:[address] ANGIOGRAPHY NECK [CT] Urgent Exams 05/26/25 16:54 Completed CTA HEAD W AND/OR WO CONTRAST [CT] Urgent Exams 05/26/25 16:54 Completed ECHO W/2D AND DOPPLER [US] Urgent Exams 05/27/25 07:00 Ordered HEAD WITHOUT CONTRAST [CT] Stat Exams 05/26/25 12:10 Completed - Procedures and Test Procedures and Tests throughout Hospitalization: Therapy Orders & Screens 05/26/25 16:54 PT Eval & Treat (MD Order) ONCE Reason for Eval:: weakness Diagnosis: Syncope EKG REPEAT IN AM Comment: Diagnosis: Syncope 05/26/25 17:20 Respiratory Therapy Assessment DAILY Comment: Diagnosis: Syncope 05/26/25 18:42 RT Screen per Nursing Assess ONCE Comment: Protocol Order Physician Instructions: Greater than 3 points order RT Admission Screen Reason For Exam: Triggered on Admission Diagnosis: Syncope Diagnosis: Syncope Pneumonia: No Home O2: No Asthma: No CHF: Yes Home CPAP/BIPAP: No Home Nebs/MDI: Yes Total Points: 8 ST Screen per Nursing Assess ONCE Comment: Protocol Order Physician Instructions: Greater than [address] Admission Screening Reason For Exam: Triggered on Admission Diagnosis: Syncope CVA/Dysphagia/Aphasia: No Cognitive Deficits: No Dehydration/Nutrition Deficit: Yes Reflux: Yes Oral-Motor Difficulties: No Pneumonia: No Halfway Resident: No Total Points: 8 05/26/25 19:00 Respiratory MDI BID Comment: Diagnosis: Syncope Respiratory MDI QID Comment: Diagnosis: Syncope Discharge Exam General Appearance: no apparent distress, alert Neurologic Exam: alert, oriented x 3, cooperative, normal mood/affect, nml cerebellar function, sensation nml, No motor deficits Eye Exam: PERRL, EOMI, eyes nml inspection Ears, Nose, Throat Exam: normal ENT inspection, pharynx normal, moist mucous membranes Neck Exam: normal inspection, non-tender, supple, full range of motion Respiratory Exam: normal breath sounds, lungs clear, No respiratory distress Cardiovascular Exam: regular rate/rhythm, normal heart sounds Gastrointestinal/Abdomen Exam: soft, No tenderness, No mass Pelvic Exam: deferred Rectal Exam: deferred Back Exam: normal inspection, normal range of motion, No CVA tenderness, No vertebral tenderness Extremity Exam: normal inspection, normal range of motion Skin Exam: normal color, warm, dry, pale Final Diagnosis/Problem List - Final Discharge Diagnosis/Problem (1) Syncope Current Visit: No Status: Acute Code(s): R55 - SYNCOPE AND COLLAPSE (2) COPD (chronic obstructive pulmonary disease) Current Visit: Yes Status: Acute (3) HTN (hypertension) Current Visit: Yes Status: Acute Code(s): I10 - ESSENTIAL (PRIMARY) HYPERTENSION (4) HLD (hyperlipidemia) Current Visit: Yes Status: Acute Code(s): E78.5 - HYPERLIPIDEMIA, UNSPECIFIED (5) Hypothyroid Current Visit: Yes Status: Acute Code(s): E03.9 - HYPOTHYROIDISM, UNSPECIFIED (6) GERD (gastroesophageal reflux disease) Current Visit: Yes Status: Acute Code(s): K21.9 - GASTRO-ESOPHAGEAL REFLUX DISEASE WITHOUT ESOPHAGITIS (7) Afib Current Visit: Yes Status: Acute Code(s): I48.91 - UNSPECIFIED ATRIAL FIBRILLATION (8) Lactic acidosis Current Visit: Yes Status: Acute Code(s): E87.20 - ACIDOSIS, UNSPECIFIED (9) Vmkhk-[id number] deficiency Current Visit: Yes Status: Acute Code(s): E88.01 - [id number] DEFICIENCY (10) CHF (congestive heart failure) Current Visit: No Status: Chronic Assessment & Plan: (1) Syncope and collapse Current Visit: Yes Status: Acute Assessment & Plan: -Witnessed episode with prodrome of visual disturbance followed by loss of consciousness. -No seizure activity, postictal confusion, chest pain, or palpitations reported. -EKG with ventricular paced rhythm, no acute ischemia or arrhythmia. -Head CT negative for acute pathology; only chronic ischemic changes. -Lactate transiently elevated (2.7 - 1.9 after fluids), possibly reflecting transient hypoperfusion. -No troponin elevation x3 to suggest ACS. -Monitor on telemetry -Orthostatic vitals negative -Pacemaker interrogation showed 24 minute run of a-fib -Cardiology consulted- if ok with cardio may d/c today. -Echocardiogram- pending -CTA head/neck: No evidence of significant vascular abnormalities, acute infarct, or hemorrhage. - Unable to have MRI d/t pacemaker - PT eval consult given fall with syncope- pt did well with staff today and walking around unit - Review meds for anything that could be lowering pressure or contributing to fall risk - Test for covid/flu/rsv - Neuro exam normal - Neurology consult- cancelled Code(s): R55 - SYNCOPE AND COLLAPSE (2) COPD (chronic obstructive pulmonary disease) Current Visit: Yes Status: Acute Assessment & Plan: - Not in acute exacerbation -Stable, no wheezing or increased work of breathing. -Continue home meds -Supplemental oxygen with goal spo2> 89% -Nebs/INH (3) HTN (hypertension) Current Visit: Yes Status: Acute Assessment & Plan: -Stable in ED -Checked orthostatic vitals- no concerns today -Continue home meds Code(s): I10 - ESSENTIAL (PRIMARY) HYPERTENSION (4) HLD (hyperlipidemia) Current Visit: Yes Status: Acute Assessment & Plan: -continue statin Code(s): E78.5 - HYPERLIPIDEMIA, UNSPECIFIED (5) Hypothyroid Current Visit: Yes Status: Acute Assessment & Plan: - TSH WNL -Noted elevation back in January patient reports meds adjusted -Continue levothyroxine and adjust as needed Code(s): E03.9 - HYPOTHYROIDISM, UNSPECIFIED (6) GERD (gastroesophageal reflux disease) Current Visit: Yes Status: Acute Assessment & Plan: -continue home meds Code(s): K21.9 - GASTRO-ESOPHAGEAL REFLUX DISEASE WITHOUT ESOPHAGITIS (7) Afib Current Visit: Yes Status: Acute Assessment & Plan: -Rhythm right now looks like ventricularly paced sinus. No acute arrhythmia caught in the ED. -Already anticoagulated on Eliquis and rate controlled with carvedilol. -Keep current anticoag and rate control. -Have device interrogated to see if she had an arrhythmic trigger for the syncope. Code(s): I48.91 - UNSPECIFIED ATRIAL FIBRILLATION (8) Lactic acidosis Current Visit: Yes Status: Acute Assessment & Plan: -Lactate was 2.7 on arrival, dropped to 1.9 after fluids. Likely from short hypo-perfusion during syncopal event. -No ongoing treatment needed; monitor labs, ensure hydration. Code(s): E87.20 - ACIDOSIS, UNSPECIFIED (9) Njdwk-[id number] deficiency Current Visit: Yes Status: Acute Assessment & Plan: -Contributes to COPD history- not in acute exacerbation -Continue disease-specific management as previously established -Ensure up-to-date vaccinations (influenza, pneumococcal). -Pulmonology follow-up with Dr. Sam Code(s): E88.01 - [id number] DEFICIENCY (10) CHF (congestive heart failure) Current Visit: No Status: Chronic Assessment & Plan: - Not in acute exacerbation - BNP 988 but no acute volume overload. - Echo last year EF 6065%. - Repeat Echo- pending- F/U OP with cardiology - Continue home meds - Reception Specialist Dr. Gaxiola D/C plan of care time > 35 minutes Code(s): I50.9 - HEART FAILURE, UNSPECIFIED - Discharge Discharge Date: 05/27/25 Disposition: Home, Self-Care Condition: Stable Prescriptions: Continue Levothyroxine Sodium [Synthroid] 150 mcg PO DAILY Zolpidem Tartrate 10 mg [Ambien 10 MG] 5 mg PO HS Omeprazole 20 MG [Prilosec 20 mg] 20 mg HS Montelukast Sodium 10 mg [Singulair 10 MG] 10 mg PO HS Oxybutynin Chloride Xl 5 mg [Ditropan XL 5 MG] 5 mg PO BID carvediloL [Coreg] 25 mg PO BID Sacubitril/Valsartan [Entresto 97 mg-103 mg Tablet] 1 tab PO BID Apixaban [Eliquis] 5 mg PO BID Ezetimibe 10 mg [Zetia 10 MG] 10 mg PO HS Cetirizine HCl [Zyrtec] 10 mg PO HS Albuterol 8 gm Mdi Hfa [Ventolin Hfa MDI] 2 puff IH QID Budesonide/Formoterol Fumarate [Budesonide-Formoterol 160-4.5] 2 puff IH BID Cyanocobalamin 1000 Mcg/ml [Cyanocobalamin B-12 1000 MCG/ML] 1,000 mcg SQ UD Duloxetine HCl 60 mg PO QAM Spironolactone 25 mg [Aldactone 25 MG] 12.5 mg PO DAILY Outpatient Orders: Physical Therapy Eval & Treat Facility: [facility], Location: PHYSICAL THERAPY Additional Instructions: YOUR FIRST APT WITH [facility] PH[facility]ICAL THERAP[facility] IS Tuesday05/29/25@1300 Follow up with: GARCIA RDZ MD [Primary Care Provider, FAMILY PRACTICE] - 06/03/25 2:15 pm Oz Gaxiola MD [Family Provider, CARDIOLOGY] - 06/11/25 1:15 pm
[2025-05-27] MEDS: Protonix 40MG Tablet PO SCH (11:11)
[2025-05-27] MEDS: CLARITIN 10 MG PO SCH (11:11)
[2025-05-27] MEDS: SYNTHROID 75 MCG PO SCH (11:11)
[2025-05-27] MEDS: Cymbalta 30 MG Capsule PO SCH (11:12)
[2025-05-27 11:52] LABS: INFLUENZA A NEGATIVE (NEGATIVE); INFLUENZA B NEGATIVE (NEGATIVE); RESPIRATORY SYNCTIAL VIRUS NEGATIVE (NEGATIVE); SARS-CoV-2 Xpert Express NEGATIVE (NEGATIVE)
[2025-05-27 12:10] VITALS: BP 185/80; TEMP 98; O2SAT 96
[2025-06-05] MEDS ORDERED: Cyanocobalamin B-12 1000 MCG/ML SQ SCH (10:00)
== END 2025-05-27 14:35 | disposition home or self-care (01) ==
LOC: ED 11:28 → MED SURG 15:48
PROVIDERS: ADMIT Internal Medicine; ATTEND Internal Medicine
DX: R55 Syncope and collapse (principal); J44.9 Chronic obstructive pulmonary disease, unspecified; E78.5 Hyperlipidemia, unspecified; E03.9 Hypothyroidism, unspecified; K21.9 Gastro-esophageal reflux disease without esophagitis; I48.91 Unspecified atrial fibrillation; E87.20 Acidosis, unspecified; E88.01 Alpha-1-antitrypsin deficiency; R05.8 Other specified cough; I11.0 Hypertensive heart disease with heart failure; I50.9 Heart failure, unspecified; Z79.899 Other long term (current) drug therapy; Z79.01 Long term (current) use of anticoagulants
CPT/HCPCS: 36415; 70450; 70496; 70498; 71046; 80053; 80061; 81001; 83036; 83605; 83721; 83880; 84443; 84484; 85025; 85027; 87637; 93005; 93041; 93268; 93306; 94640; 94760; 96374; 97161; 99285; G0378; Q3014

== ENCOUNTER 2025-05-31 22:10 | Emergency (ER) | payer MEDICARE, OTHER ==
--- NOTE | 2025-05-31 23:27 | ERPHSYRPT ---
- History of Present Illness Time Seen by Provider: 05/31/25 23:27 Source: patient Exam Limitations: no limitations Allergies/Adverse Reactions: No Known Drug Allergies Allergy (Verified 05/31/25 23:45) Home Medications: Levothyroxine Sodium [Synthroid] 150 mcg PO DAILY 04/18/12 [History] Zolpidem Tartrate 10 mg [Ambien 10 MG] 5 mg PO HS 04/18/12 [History] Omeprazole 20 MG [Prilosec 20 mg] 20 mg PO HS 01/02/18 [History] Montelukast Sodium 10 mg [Singulair 10 MG] 10 mg PO HS 01/10/21 [History] Oxybutynin Chloride Xl 5 mg [Ditropan XL 5 MG] 5 mg PO BID 01/10/21 [History] carvediloL [Coreg] 25 mg PO BID 01/10/21 [History] Apixaban [Eliquis] 5 mg PO BID 07/26/21 [History] Sacubitril/Valsartan [Entresto 97 mg-103 mg Tablet] 1 tab PO BID 07/26/21 [History] Cetirizine HCl [Zyrtec] 10 mg PO HS 10/06/22 [History] Ezetimibe 10 mg [Zetia 10 MG] 10 mg PO HS 10/06/22 [History] Albuterol 8 gm Mdi Hfa [Ventolin Hfa MDI] 2 puff IH QID 05/26/25 [History] Budesonide/Formoterol Fumarate [Budesonide-Formoterol 160-4.5] 2 puff IH BID 05/26/25 [History] Cyanocobalamin 1000 Mcg/ml [Cyanocobalamin B-12 1000 MCG/ML] 1,000 mcg SQ UD 05/26/25 [History] Duloxetine HCl 60 mg PO QAM 05/26/25 [History] Spironolactone 25 mg [Aldactone 25 MG] 12.5 mg PO DAILY 05/26/25 [History] Hx Tetanus, Diphtheria Vaccination/Date Given: Yes Hx Influenza Vaccination/Date Given: Yes Hx Pneumococcal Vaccination/Date Given: Yes Travel Risk - Emerging Infectious Disease Are you exhibiting symptoms associated with any current EIDs: No - Past Medical History Neurological History: No Pertinent History Cardiac History: Arrhythmia, High Cholesterol, Hypertension, Other Respiratory History: COPD Endocrine Medical History: Hypothyroidism Musculoskeletal History: Osteoarthritis, Other Other Medical History: HX OF ELBOW SURGERY FOR RADIAL TUNNEL RIGHT 1984. PACEMAKER/DEFIBRILLATOR 08/2019 and replaced 2024, FIBROMYALGIA. MACULAR DEGENERATION - Past Surgical History Past Surgical History: Yes Neuro Surgical History: No Pertinent History Cardiac: No Pertinent History, Internal Defibrillator, Pacemaker Respiratory: No Pertinent History Gastrointestinal: Appendectomy, Cholecystectomy Genitourinary: No Pertinent History Musculoskeletal: Other Female Surgical History: No Pertinent History Other Surgical History: breast biopsy. radial tunnel surgery on right arm. PACEMAKER/DEFIBRILLATOR 08/2019 Significant Family History: diabetes - Social History Drug Use: none - Social Determinants of Health Will the patient participate in the screening: Declined to provide - Nursing Vital Signs Nursing Vital Signs: Initial Vital Signs Blood Pressure 205/98 05/31/25 23:30 Pain Scale Pain Intensity 7 Ordered Tests: Active Orders 24 hr Category Date Time Status ABDOMEN AND PELVIS W/0 CONTRAS [CT] Stat Exams 06/01/25 00:07 Completed CBC W DIFF Stat Lab 06/01/25 00:25 Completed CMP Stat Lab 06/01/25 00:25 Completed CULTURE,URINE Stat Lab 06/01/25 00:47 Received Lactic Acid Stat Lab 06/01/25 00:15 Completed UA W/RFX UR CULTURE Stat Lab 06/01/25 00:47 Completed Medication Summary Discontinued Medications Generic Name Dose Route Start Last Admin Trade Name Freq PRN Reason Stop Dose Admin Hydrocodone Bitart/Acetaminophen 1 tab 06/01/25 01:04 06/01/25 01:08 Hydrocodone/Apap 5/325 1 Tab Tablet PO 06/01/25 01:05 1 tab STAT ONE Administration Hydrocodone Bitart/Acetaminophen Confirm 06/01/25 01:07 Hydrocodone/Apap 5/325 1 Tab Tablet Administered 06/01/25 01:08 Dose 1 tab .ROUTE .STK-MED ONE Hydrocodone Bitart/Acetaminophen 1 tab 06/01/25 01:30 Hydrocodone/Apap 5/325 1 Tab Tablet PO 06/01/25 01:31 STAT ONE Hydrocodone Bitart/Acetaminophen 2 tab 06/01/25 01:31 Hydrocodone/Apap 5/325 1 Tab Tablet PO 06/01/25 01:32 SENT HOME W/ PATIENT ONE Potassium Chloride 40 meq 06/01/25 01:02 06/01/25 01:08 Potassium Chloride Tab 10 Meq Tab PO 06/01/25 01:03 40 meq STAT ONE Administration Potassium Chloride Confirm 06/01/25 01:07 Potassium Chloride Tab 10 Meq Tab Administered 06/01/25 01:08 Dose 40 meq .ROUTE .STK-MED ONE Tamsulosin HCl 0.4 mg 06/01/25 01:31 Tamsulosin Hcl 0.4 Mg Cap PO 06/01/25 01:32 STAT ONE Lab/Rad Data: Laboratory Result Diagrams 06/01/25 00:25 06/01/25 00:25 Laboratory Results 06/01/25 06/01/25 06/01/25 Range/Units 00:47 00:25 00:25 WBC 6.5 (3.98-10.04) x10^3/uL RBC 4.00 (3.93-5.22) x10^6/uL Hgb 12.0 (11.2-15.7) g/dL Hct 36.2 (34.1-44.9) % MCV 90.5 (79.4-94.8) fL MCH 30.0 (25.6-32.2) pg MCHC 33.1 (32.2-35.5) g/dL RDW 14.0 (11.7-14.4) % Plt Count 186 (182-369) x10^3/uL MPV 10.4 (9.4-12.3) fL Gran % 63.3 (34.0-71.1) % Immature Gran % (Auto) 0.3 (0.001-0.429) % Nucleat RBC Rel Count 0.0 (0.00-0.2) % Eos # (Auto) 0.28 (0.04-0.36) x10^3/uL Immature Gran # (Auto) 0.02 (0.001-0.031) x10^3u/L Absolute Lymphs (auto) 1.52 (1.18-3.74) x10^3/uL Absolute Monos (auto) 0.54 (0.24-0.86) x10^3/uL Absolute Nucleated RBC 0.00 (0.00-0.012) x10^3u/L Lymphocytes % 23.3 (19.3-51.7) % Monocytes % 8.3 (4.7-12.5) % Eosinophils % 4.3 (0.7-5.8) % Basophils % 0.5 (0.1-1.2) % Absolute Granulocytes 4.13 (1.56-6.13) x10^3/uL Basophils # 0.03 (0.01-0.08) x10^3/uL Sodium 141 (135-145) mmol/L Potassium 3.0 L* (3.5-5.1) mmol/L Chloride 105 (98-107) mmol/L Carbon Dioxide 24 (22-30) mmol/L Anion Gap 15.2 H (5-15) MEQ/L BUN 13 (7-17) mg/dL Creatinine 0.65 (0.52-1.04) mg/dL Estimated GFR 86.2 ML/MIN Glucose 129 H (74-106) mg/dL Lactic Acid (0.4-2.0) Calcium 9.6 (8.4-10.2) mg/dL Total Bilirubin 0.70 (0.2-1.3) mg/dL AST 57 H (14-36) U/L ALT 47 H (0-35) U/L Alkaline Phosphatase 126 (38-126) U/L Serum Total Protein 6.9 (6.3-8.2) g/dL Albumin 4.0 (3.5-5.0) g/dL Urine Color Yellow (Yellow) Urine Appearance Clear (Clear) Urine pH 7.0 (4.6-8.0) Ur Specific [place] 1.010 (1.005-1.030) Urine Protein Negative (Negative) Urine Glucose (UA) Negative (Negative) mg/dL Urine Ketones Negative (Negative) Urine Blood Moderate A (Negative) Urine Nitrite Negative (Negative) Urine Bilirubin Negative (Negative) Urine Urobilinogen 1.0 A (0.2) mg/dL Ur Leukocyte Esterase Trace A (Negative) U Hyaline Cast (Auto) NONE SEEN (0-2) /LPF Urine Microscopic RBC 3-5 (0-5) /HPF Urine Microscopic WBC 6-10 A (0-5) /HPF Ur Epithelial Cells None Seen (None Seen) /HPF Urine Bacteria None Seen (None Seen) /HPF Urine Culture Reflexed YES (NO) 06/01/25 Range/Units 00:15 WBC (3.98-10.04) x10^3/uL RBC (3.93-5.22) x10^6/uL Hgb (11.2-15.7) g/dL Hct (34.1-44.9) % MCV (79.4-94.8) fL MCH (25.6-32.2) pg MCHC (32.2-35.5) g/dL RDW (11.7-14.4) % Plt Count (182-369) x10^3/uL MPV (9.4-12.3) fL Gran % (34.0-71.1) % Immature Gran % (Auto) (0.001-0.429) % Nucleat RBC Rel Count (0.00-0.2) % Eos # (Auto) (0.04-0.36) x10^3/uL Immature Gran # (Auto) (0.001-0.031) x10^3u/L Absolute Lymphs (auto) (1.18-3.74) x10^3/uL Absolute Monos (auto) (0.24-0.86) x10^3/uL Absolute Nucleated RBC (0.00-0.012) x10^3u/L Lymphocytes % (19.3-51.7) % Monocytes % (4.7-12.5) % Eosinophils % (0.7-5.8) % Basophils % (0.1-1.2) % Absolute Granulocytes (1.56-6.13) x10^3/uL Basophils # (0.01-0.08) x10^3/uL Sodium (135-145) mmol/L Potassium (3.5-5.1) mmol/L Chloride (98-107) mmol/L Carbon Dioxide (22-30) mmol/L Anion Gap (5-15) MEQ/L BUN (7-17) mg/dL Creatinine (0.52-1.04) mg/dL Estimated GFR ML/MIN Glucose (74-106) mg/dL Lactic Acid 1.9 (0.4-2.0) Calcium (8.4-10.2) mg/dL Total Bilirubin (0.2-1.3) mg/dL AST (14-36) U/L ALT (0-35) U/L Alkaline Phosphatase (38-126) U/L Serum Total Protein (6.3-8.2) g/dL Albumin (3.5-5.0) g/dL Urine Color (Yellow) Urine Appearance (Clear) Urine pH (4.6-8.0) Ur Specific [place] (1.005-1.030) Urine Protein (Negative) Urine Glucose (UA) (Negative) mg/dL Urine Ketones (Negative) Urine Blood (Negative) Urine Nitrite (Negative) Urine Bilirubin (Negative) Urine Urobilinogen (0.2) mg/dL Ur Leukocyte Esterase (Negative) U Hyaline Cast (Auto) (0-2) /LPF Urine Microscopic RBC (0-5) /HPF Urine Microscopic WBC (0-5) /HPF Ur Epithelial Cells (None Seen) /HPF Urine Bacteria (None Seen) /HPF Urine Culture Reflexed (NO) - Departure Departure Disposition: Home Clinical Impression: Left ureteral calculus, Hydronephrosis, left Condition: Stable Critical Care Time: No Referrals: GARCIA RDZ MD [Primary Care Provider, [facility]] - Follow up/PCP as directed Instructions: Kidney stones in adults Prescriptions: Hydrocodone/Acetaminophen [Hydrocodone-Acetamin 5-325 mg] 1 tab PO Q6HPRN PRN 3 Days #12 tablet MDD 4 PRN Reason: Pain Tamsulosin HCl [Flomax] 0.4 mg PO DAILY 14 Days #14 cap
[2025-05-31 23:35] VITALS: TEMP 97.3
[2025-06-01 00:31] LABS: BASOPHIL % 0.5 % (0.1-1.2); Basophil (Absolute #) 0.03 x10^3/uL (0.01-0.08); Eosinophil (Absolute #) 0.28 x10^3/uL (0.04-0.36); Hematocrit 36.2 % (34.1-44.9); Hemoglobin 12.0 g/dL (11.2-15.7); IMMATURE GRAN # 0.02 x10^3u/L (0.001-0.031); IMMATURE GRAN % 0.3 % (0.001-0.429); Lymphocyte (Absolute #) 1.52 x10^3/uL (1.18-3.74); Mean Corpuscular Hemoglobin 30.0 pg (25.6-32.2); Mean Corpuscular Hgb Concent. 33.1 g/dL (32.2-35.5); Monocyte (Absolute #) 0.54 x10^3/uL (0.24-0.86); NUCLEATED RBC # 0.00 x10^3u/L (0.00-0.012); NUCLEATED RBC % 0.0 % (0.00-0.2); Platelet Count 186 x10^3/uL (182-369); Red Blood Count 4.00 x10^6/uL (3.93-5.22); White Blood Count 6.5 x10^3/uL (3.98-10.04)
[2025-06-01 00:45] LABS: Calcium 9.6 mg/dL (8.4-10.2); Carbon Dioxide 24.0 mmol/L (22-30); Creatinine 1 0.65 mg/dL (0.52-1.04); EST GLOMERULAR FILTRATION RATE 86.2 ML/MIN; Glucose 129.0 mg/dL (74-106); SGOT/AST 57.0 U/L (14-36); SGPT/ALT 47.0 U/L (0-35); Total Protein 6.9 g/dL (6.3-8.2)
[2025-06-01 00:49] LABS: Potassium 3.0 mmol/L (3.5-5.1)
[2025-06-01] MEDS ORDERED: NORCO 5/325 MG ONE ×2 (01:07→01:35)
[2025-06-01] MEDS ORDERED: Klor Con ONE (01:07)
[2025-06-01] MEDS: NORCO 5/325 MG PO ONE ×3 (01:08→01:38)
[2025-06-01] MEDS: Klor Con PO ONE (01:08)
[2025-06-01 01:13] LABS: Glucose, Urine Negative (Negative); Protein,Urine Dip Negative (Negative)
--- NOTE | 2025-06-01 01:25 | XRAY ---
CLINICAL HISTORY: abd pain COMPARISON: None. TECHNIQUE: Contiguous axial images were obtained from the level of the diaphragm to the pubic symphysis without intravenous or oral contrast. Coronal and sagittal reconstructions were likewise performed and were indicated to increase the sensitivity for detecting clinically relevant pathology. CT scan was performed according to ALARA (as low as reasonably achievable). FINDINGS: The visualized lung bases are clear. Evaluation of the abdominal and pelvic visceral organs is limited without intravenous contrast. The unenhanced liver, spleen, pancreas, and adrenal glands are grossly unremarkable. Multiple tiny hepatosplenic calcified granulomas are present. Status post-cholecystectomy. The kidneys are normal in size and attenuation without obvious calcification. The left kidney shows hydronephrosis and hydroureter up to an obstructing calculus measuring 4 mm, noted in the left vesicoureteric junction. No adenopathy or fluid collections are seen. There is no evidence of focal or diffuse bowel wall thickening or evidence of bowel obstruction. There is no imaging evidence of appendicitis. The aorta is normal in caliber. The urinary bladder is normal in contour. The pelvic viscera are grossly unremarkable. No aggressive appearing osseous lesions are identified. Multiple small uncomplicated sigmoid colonic diverticula are present. IMPRESSION: 1. Multiple tiny hepatosplenic calcified granulomas. 2. The left kidney shows hydronephrosis and hydroureter up to an obstructing calculus measuring 4 mm, noted in the left vesicoureteric junction. 3. Multiple small uncomplicated sigmoid colonic diverticula are present. Electronically Signed by: Tawanda Haynes MD. (06/01/2025 01:23:35 EDT)
[2025-06-01] MEDS ORDERED: ZOFRAN ODT 4 MG ONE (01:34)
[2025-06-01] MEDS ORDERED: Flomax 0.4 MG ONE (01:35)
[2025-06-01] MEDS: ZOFRAN ODT 4 MG PO ONE (01:36)
[2025-06-01] MEDS: Flomax 0.4 MG PO ONE (01:36)
[2025-06-01 01:54] VITALS: BP 169/97; PULSE 67; RESP 17; O2SAT 94
== END 2025-06-01 01:55 | disposition home or self-care (01) ==
LOC: ED 22:10
DX: N13.2 Hydronephrosis with renal and ureteral calculous obstruction (principal); I10 Essential (primary) hypertension; Z79.01 Long term (current) use of anticoagulants; Z79.891 Long term (current) use of opiate analgesic; Z79.899 Other long term (current) drug therapy